=== PATIENT | male | born 1960 | race Caucasian/White ===

== ENCOUNTER 2021-09-23 14:01 | Inpatient (IN) | payer OTHER ==
[~2021-09-23] VITALS: Ht 177.8 cm; Wt 76.3 kg
[2021-09-23 16:20] VITALS: BP 173/93
[2021-09-23] MEDS ORDERED: PROMETHAZINE HCL 25 MG TABLET PO PRN (17:00)
[2021-09-23] MEDS ORDERED: ONDANSETRON HCL 4 MG TABLET PO PRN (17:00)
[2021-09-23] MEDS ORDERED: BISACODYL 10 MG RECTAL RECTAL SUPPOSITORY PR PRN (17:00)
[2021-09-23] MEDS ORDERED: HYDROmorphone HCL 2 MG TABLET PO PRN (17:00)
[2021-09-23] MEDS ORDERED: MELATONIN 5 MG TABLET PO PRN (17:00)
[2021-09-23] MEDS ORDERED: DEXTROSE 50%-WATER 25 GM/50 ML SYRINGE IVP PRN (17:00)
[2021-09-23] MEDS: INSULIN LISPRO 100 UNITS/ML SQ PRN ×2 (17:34→21:23)
[2021-09-23] MEDS: GENTAMICIN SULFATE 0.1% 15 GM OINTMENT TP SCH (19:45)
[2021-09-23 20:00] LABS: GLUCOMETER DEV NAME(LOC) 2WR.1C; GLUCOSE,POINT OF CARE 145 MG/DL (70-110)
[2021-09-23 20:52] VITALS: BP 157/89
[2021-09-23] MEDS: BUMETANIDE 1 MG TABLET PO SCH (21:00)
[2021-09-23] MEDS: ETHYL ALCOHOL 62% ANTISEPTIC NASAL INHALANT 0.6 ML AMPUL NASAL SCH (21:00)
[2021-09-23] MEDS: DOCUSATE SODIUM 100 MG CAPSULE PO SCH (21:00)
[2021-09-23] MEDS ORDERED: HEPARIN SODIUM,PORCINE 5,000 UNITS/ML VIAL SQ SCH ×2 (21:00)
[2021-09-23] MEDS ORDERED: SENNA 218 MG/5 ML LIQUID ORAL.SYG PO SCH (21:00)
[2021-09-23] MEDS: AmLODIPine BESYLATE 5 MG TABLET PO SCH (21:01)
[2021-09-23] MEDS: DOXYCYCLINE HYCLATE 100 MG TABLET PO SCH (21:01)
[2021-09-23] MEDS: MELATONIN 5 MG TABLET PO SCH (21:06)
[2021-09-24] VITALS: BP 148/76
[2021-09-24 04:59] LABS: GLUCOMETER DEV NAME(LOC) 2WR.1C; GLUCOSE,POINT OF CARE 147 MG/DL (70-110)
[2021-09-24 06:14] LABS: GLUCOMETER DEV NAME(LOC) 2WR.2B; GLUCOSE,POINT OF CARE 111 MG/DL (70-110)
[2021-09-24 07:33] LABS: BASOPHILS % (AUTO) 0.9 % (0.0-2.0); EOSINOPHILS % (AUTO) 5.9 % (1.0-6.0); HEMATOCRIT 31.1 % (41-53); HEMOGLOBIN 9.9 g/dL (13.5-17.5); LYMPHOCYTES # (AUTO) 1.1 K/uL (1.0-4.8); LYMPHOCYTES % (AUTO) 12.6 % (22.0-44.0); MEAN CORPUSCULAR HEMOGLOBIN 29.8 pg (26.0-34.0); MEAN CORPUSCULAR HGB CONC 31.9 G/dL (31.0-37.0); MEAN CORPUSCULAR VOLUME 93 fL (80-100); MONOCYTES # (AUTO) 0.7 K/uL (0.1-1.0); MONOCYTES % (AUTO) 7.9 % (2.0-9.0); NEUTROPHILS # (AUTO) 6.3 K/uL (1.8-7.7); NEUTROPHILS % (AUTO) 72.7 % (40.0-70.0); PLATELET COUNT (AUTO) 379 K/uL (150-450); RED BLOOD CELL COUNT(AUTO) 3.34 MIL/uL (4.50-5.90); RED CELL DISTRIBUTION WIDTH 18.1 % (11.5-14.5)
[2021-09-24 07:56] LABS: ALBUMIN 2.3 g/dL (3.4-5.0); BILIRUBIN,TOTAL 0.4 mg/dL (0.1-1.0); CALCIUM, TOTAL 10.1 mg/dL (8.8-10.5); CREATININE 10.51 mg/dL (0.60-1.30); PHOSPHORUS 8.7 mg/dL (2.5-4.9); POTASSIUM 5.1 mmol/L (3.5-5.1); TOTAL PROTEIN, SERUM 7.8 g/dL (6.4-8.2)
[2021-09-24] MEDS: ETHYL ALCOHOL 62% ANTISEPTIC NASAL INHALANT 0.6 ML AMPUL NASAL SCH ×2 (08:15→21:02)
[2021-09-24] MEDS: ASPIRIN 81 MG CHEWABLE TABLET PO SCH (08:15)
[2021-09-24] MEDS: POLYETHYLENE GLYCOL 3350 17 GM PACKET PO SCH (08:16)
[2021-09-24] MEDS: DOCUSATE SODIUM 100 MG CAPSULE PO SCH ×2 (08:16→20:53)
[2021-09-24] MEDS: VITAMIN B COMP/VIT C/FOLIC ACID CAPSULE PO SCH (08:16)
[2021-09-24] MEDS: LOSARTAN POTASSIUM 25 MG TABLET PO SCH (08:17)
[2021-09-24] MEDS: ATORVASTATIN CALCIUM 10 MG TABLET PO SCH (08:17)
[2021-09-24] MEDS: HEPARIN SODIUM,PORCINE 5,000 UNITS/ML VIAL SQ SCH ×2 (08:17→20:54)
[2021-09-24] MEDS: DOXYCYCLINE HYCLATE 100 MG TABLET PO SCH ×2 (08:18→20:55)
[2021-09-24] MEDS: ASCORBIC ACID 500 MG TABLET PO SCH (08:18)
[2021-09-24] MEDS: SitaGLIPtin PHOSPHATE 25 MG TABLET PO SCH (08:19)
[2021-09-24] MEDS: SPIRONOLACTONE 25 MG TABLET PO SCH (08:20)
[2021-09-24] MEDS: GENTAMICIN SULFATE 0.1% 15 GM OINTMENT TP SCH ×2 (08:21→17:34)
[2021-09-24] MEDS: BUMETANIDE 1 MG TABLET PO SCH ×2 (08:25→20:53)
[2021-09-24] MEDS: LACTOBAC ACID/BULG/BIFID/THERM TABLET PO SCH ×2 (08:25→20:54)
[2021-09-24] MEDS: EPOETIN ALFA 10,000 UNITS/ML VIAL SQ SCH (08:26)
[2021-09-24] MEDS: GABAPENTIN 100 MG CAPSULE PO SCH ×2 (08:26→20:53)
[2021-09-24 08:30] VITALS: BP 131/84
[2021-09-24] MEDS ORDERED: CIPROFLOXACIN HCL 500 MG TABLET PO SCH (09:00)
[2021-09-24] MEDS ORDERED: VITAMIN B COMPLEX WITH C TABLET PO SCH (09:00)
[2021-09-24] MEDS: OMEPRAZOLE 20 MG CAPSULE PO SCH (12:46)
[2021-09-24] MEDS: SEVELAMER CARBONATE 800 MG TABLET PO SCH ×2 (12:47→17:44)
[2021-09-24 12:49] LABS: GLUCOMETER DEV NAME(LOC) 2WR.1C; GLUCOSE,POINT OF CARE 81 MG/DL (70-110)
[2021-09-24 16:00] VITALS: BP 155/78
[2021-09-24 18:04] LABS: GLUCOMETER DEV NAME(LOC) 2WR.2B; GLUCOSE,POINT OF CARE 105 MG/DL (70-110)
[2021-09-24 20:50] VITALS: BP 138/77
[2021-09-24] MEDS: SENNA 187 MG TABLET PO SCH (20:53)
[2021-09-24] MEDS: MELATONIN 5 MG TABLET PO SCH (20:54)
[2021-09-24] MEDS: AmLODIPine BESYLATE 5 MG TABLET PO SCH (21:02)
[2021-09-24 21:45] LABS: GLUCOMETER DEV NAME(LOC) 2WR.2B; GLUCOSE,POINT OF CARE 136 MG/DL (70-110)
[2021-09-25 01:00] VITALS: BP 146/82
[2021-09-25 07:08] LABS: CALCIUM, TOTAL 9.7 mg/dL (8.8-10.5); CREATININE 10.5 mg/dL (0.60-1.30); PHOSPHORUS 8.6 mg/dL (2.5-4.9); POTASSIUM 5.3 mmol/L (3.5-5.1)
[2021-09-25 07:30] VITALS: BP 152/82
[2021-09-25] MEDS: SEVELAMER CARBONATE 800 MG TABLET PO SCH ×3 (08:09→17:49)
[2021-09-25] MEDS: ETHYL ALCOHOL 62% ANTISEPTIC NASAL INHALANT 0.6 ML AMPUL NASAL SCH ×2 (08:27→21:00)
[2021-09-25] MEDS: POLYETHYLENE GLYCOL 3350 17 GM PACKET PO SCH (08:27)
[2021-09-25] MEDS: HEPARIN SODIUM,PORCINE 5,000 UNITS/ML VIAL SQ SCH ×2 (08:28→21:01)
[2021-09-25] MEDS: ASPIRIN 81 MG CHEWABLE TABLET PO SCH (08:28)
[2021-09-25] MEDS: DOCUSATE SODIUM 100 MG CAPSULE PO SCH ×2 (08:28→21:01)
[2021-09-25] MEDS: LACTOBAC ACID/BULG/BIFID/THERM TABLET PO SCH ×2 (08:28→21:00)
[2021-09-25] MEDS: VITAMIN B COMP/VIT C/FOLIC ACID CAPSULE PO SCH (08:29)
[2021-09-25] MEDS: OMEPRAZOLE 20 MG CAPSULE PO SCH (08:29)
[2021-09-25] MEDS: ASCORBIC ACID 500 MG TABLET PO SCH (08:29)
[2021-09-25] MEDS: ATORVASTATIN CALCIUM 10 MG TABLET PO SCH (08:29)
[2021-09-25] MEDS: BUMETANIDE 1 MG TABLET PO SCH ×2 (08:29→21:00)
[2021-09-25] MEDS: GABAPENTIN 100 MG CAPSULE PO SCH ×2 (08:29→21:00)
[2021-09-25] MEDS: SitaGLIPtin PHOSPHATE 25 MG TABLET PO SCH (08:29)
[2021-09-25] MEDS: DOXYCYCLINE HYCLATE 100 MG TABLET PO SCH ×2 (08:30→21:00)
[2021-09-25] MEDS: SPIRONOLACTONE 25 MG TABLET PO SCH (08:30)
[2021-09-25] MEDS: LOSARTAN POTASSIUM 25 MG TABLET PO SCH (08:30)
[2021-09-25] MEDS ORDERED: CALCITRIOL 0.25 MCG CAPSULE PO SCH (09:00)
[2021-09-25] MEDS ORDERED: SODIUM ZIRCONIUM CYCLOSILICATE 5 GM POWDER PACKET PO ONE (11:45)
[2021-09-25 15:22] LABS: GLUCOMETER DEV NAME(LOC) 2WR.2B; GLUCOSE,POINT OF CARE 86 MG/DL (70-110)
[2021-09-25 17:00] VITALS: BP 179/97
[2021-09-25 17:18] LABS: GLUCOMETER DEV NAME(LOC) 2WR.1C; GLUCOSE,POINT OF CARE 94 MG/DL (70-110)
[2021-09-25] MEDS: HydrALAZINE HCL 25 MG TABLET PO PRN (17:20)
[2021-09-25 18:51] LABS: GLUCOMETER DEV NAME(LOC) 2WR.1C; GLUCOSE,POINT OF CARE 109 MG/DL (70-110)
[2021-09-25 20:00] VITALS: BP 162/89
[2021-09-25] MEDS: AmLODIPine BESYLATE 5 MG TABLET PO SCH (21:00)
[2021-09-25] MEDS: SENNA 187 MG TABLET PO SCH (21:00)
[2021-09-25] MEDS: MELATONIN 5 MG TABLET PO SCH ×2 (21:00→21:01)
[2021-09-25 23:42] LABS: GLUCOMETER DEV NAME(LOC) 2WR.1C; GLUCOSE,POINT OF CARE 124 MG/DL (70-110)
[2021-09-26 04:58] VITALS: BP 160/81
[2021-09-26 06:29] LABS: GLUCOMETER DEV NAME(LOC) 2WR.2B; GLUCOSE,POINT OF CARE 120 MG/DL (70-110)
[2021-09-26 07:12] LABS: CALCIUM, TOTAL 9.5 mg/dL (8.8-10.5); CREATININE 10.64 mg/dL (0.60-1.30)
[2021-09-26] MEDS: SEVELAMER CARBONATE 800 MG TABLET PO SCH ×3 (07:57→17:43)
[2021-09-26] MEDS: ETHYL ALCOHOL 62% ANTISEPTIC NASAL INHALANT 0.6 ML AMPUL NASAL SCH ×2 (07:57→20:36)
[2021-09-26] MEDS: HEPARIN SODIUM,PORCINE 5,000 UNITS/ML VIAL SQ SCH ×2 (07:58→20:36)
[2021-09-26] MEDS: GABAPENTIN 100 MG CAPSULE PO SCH ×2 (07:58→20:36)
[2021-09-26] MEDS: ASCORBIC ACID 500 MG TABLET PO SCH (07:58)
[2021-09-26] MEDS: DOCUSATE SODIUM 100 MG CAPSULE PO SCH ×2 (07:58→20:36)
[2021-09-26] MEDS: LACTOBAC ACID/BULG/BIFID/THERM TABLET PO SCH ×2 (07:58→20:36)
[2021-09-26] MEDS: VITAMIN B COMP/VIT C/FOLIC ACID CAPSULE PO SCH (07:58)
[2021-09-26] MEDS: DOXYCYCLINE HYCLATE 100 MG TABLET PO SCH ×2 (07:59→20:39)
[2021-09-26] MEDS: LOSARTAN POTASSIUM 25 MG TABLET PO SCH (07:59)
[2021-09-26] MEDS: OMEPRAZOLE 20 MG CAPSULE PO SCH (07:59)
[2021-09-26] MEDS: ATORVASTATIN CALCIUM 10 MG TABLET PO SCH (07:59)
[2021-09-26] MEDS: SPIRONOLACTONE 25 MG TABLET PO SCH (07:59)
[2021-09-26] MEDS: SitaGLIPtin PHOSPHATE 25 MG TABLET PO SCH (07:59)
[2021-09-26 08:01] VITALS: BP 156/84
[2021-09-26] MEDS: POLYETHYLENE GLYCOL 3350 17 GM PACKET PO SCH (08:04)
[2021-09-26] MEDS: BUMETANIDE 1 MG TABLET PO SCH ×2 (08:04→20:36)
[2021-09-26] MEDS: GENTAMICIN SULFATE 0.1% 15 GM OINTMENT TP SCH (08:04)
[2021-09-26] MEDS: ASPIRIN 81 MG CHEWABLE TABLET PO SCH (08:04)
[2021-09-26 12:35] LABS: GLUCOMETER DEV NAME(LOC) 2WR.2B; GLUCOSE,POINT OF CARE 89 MG/DL (70-110)
[2021-09-26 16:00] VITALS: BP 164/88
[2021-09-26 18:08] LABS: GLUCOMETER DEV NAME(LOC) 2WR.2B; GLUCOSE,POINT OF CARE 79 MG/DL (70-110)
[2021-09-26 20:34] VITALS: BP 156/84
[2021-09-26] MEDS: AmLODIPine BESYLATE 5 MG TABLET PO SCH (20:36)
[2021-09-26] MEDS: SENNA 187 MG TABLET PO SCH (20:39)
[2021-09-26] MEDS: MELATONIN 5 MG TABLET PO SCH (21:00)
[2021-09-26 21:03] LABS: GLUCOMETER DEV NAME(LOC) 2WR.2B; GLUCOSE,POINT OF CARE 93 MG/DL (70-110)
[2021-09-27 05:16] VITALS: BP 143/77
[2021-09-27 06:16] LABS: GLUCOMETER DEV NAME(LOC) 2WR.2B; GLUCOSE,POINT OF CARE 104 MG/DL (70-110)
[2021-09-27 08:30] LABS: CALCIUM, TOTAL 9.1 mg/dL (8.8-10.5); CREATININE 11.09 mg/dL (0.60-1.30)
[2021-09-27 08:44] LABS: PHOSPHORUS 9.3 mg/dL (2.5-4.9)
[2021-09-27] MEDS: ETHYL ALCOHOL 62% ANTISEPTIC NASAL INHALANT 0.6 ML AMPUL NASAL SCH ×2 (09:00→20:18)
[2021-09-27] MEDS: ASCORBIC ACID 500 MG TABLET PO SCH (09:19)
[2021-09-27] MEDS: GABAPENTIN 100 MG CAPSULE PO SCH ×2 (09:19→20:17)
[2021-09-27] MEDS: BUMETANIDE 1 MG TABLET PO SCH ×2 (09:19→20:16)
[2021-09-27] MEDS: DOXYCYCLINE HYCLATE 100 MG TABLET PO SCH ×2 (09:20→20:17)
[2021-09-27] MEDS: ASPIRIN 81 MG CHEWABLE TABLET PO SCH (09:20)
[2021-09-27] MEDS: SitaGLIPtin PHOSPHATE 25 MG TABLET PO SCH (09:20)
[2021-09-27] MEDS: OMEPRAZOLE 20 MG CAPSULE PO SCH (09:20)
[2021-09-27] MEDS: LOSARTAN POTASSIUM 25 MG TABLET PO SCH (09:20)
[2021-09-27] MEDS: POLYETHYLENE GLYCOL 3350 17 GM PACKET PO SCH (09:20)
[2021-09-27] MEDS: SEVELAMER CARBONATE 800 MG TABLET PO SCH ×3 (09:20→17:37)
[2021-09-27] MEDS: VITAMIN B COMP/VIT C/FOLIC ACID CAPSULE PO SCH (09:20)
[2021-09-27] MEDS: DOCUSATE SODIUM 100 MG CAPSULE PO SCH ×2 (09:20→20:16)
[2021-09-27] MEDS: ATORVASTATIN CALCIUM 10 MG TABLET PO SCH (09:20)
[2021-09-27] MEDS: LACTOBAC ACID/BULG/BIFID/THERM TABLET PO SCH ×2 (09:20→20:16)
[2021-09-27] MEDS: GENTAMICIN SULFATE 0.1% 15 GM OINTMENT TP SCH (09:21)
[2021-09-27] MEDS: HEPARIN SODIUM,PORCINE 5,000 UNITS/ML VIAL SQ SCH ×2 (09:21→20:17)
[2021-09-27 10:05] VITALS: BP 135/71
[2021-09-27 13:12] LABS: GLUCOMETER DEV NAME(LOC) 2WR.2B; GLUCOSE,POINT OF CARE 118 MG/DL (70-110)
[2021-09-27] MEDS ORDERED: MELATONIN 5 MG TABLET PO PRN (14:15)
[2021-09-27 14:58] VITALS: BP 181/97
[2021-09-27] MEDS: HydrALAZINE HCL 25 MG TABLET PO PRN (15:05)
[2021-09-27 17:12] VITALS: BP 162/85
[2021-09-27 18:42] LABS: GLUCOMETER DEV NAME(LOC) 2WR.2B; GLUCOSE,POINT OF CARE 112 MG/DL (70-110)
[2021-09-27 20:15] VITALS: BP 155/82
[2021-09-27] MEDS: SENNA 187 MG TABLET PO SCH (20:16)
[2021-09-27] MEDS: AmLODIPine BESYLATE 5 MG TABLET PO SCH (20:18)
[2021-09-27 21:15] LABS: GLUCOMETER DEV NAME(LOC) 2WR.2B; GLUCOSE,POINT OF CARE 122 MG/DL (70-110)
[2021-09-28 02:41] VITALS: BP 143/74
[2021-09-28 06:59] LABS: CALCIUM, TOTAL 8.6 mg/dL (8.8-10.5); CREATININE 11.41 mg/dL (0.60-1.30); POTASSIUM 5.1 mmol/L (3.5-5.1)
[2021-09-28] MEDS: SEVELAMER CARBONATE 800 MG TABLET PO SCH ×3 (07:59→17:45)
[2021-09-28 08:01] VITALS: BP 146/79
[2021-09-28] MEDS: EPOETIN ALFA 10,000 UNITS/ML VIAL SQ SCH (08:10)
[2021-09-28] MEDS: ETHYL ALCOHOL 62% ANTISEPTIC NASAL INHALANT 0.6 ML AMPUL NASAL SCH ×2 (08:10→20:05)
[2021-09-28] MEDS: POLYETHYLENE GLYCOL 3350 17 GM PACKET PO SCH (08:19)
[2021-09-28] MEDS: OMEPRAZOLE 20 MG CAPSULE PO SCH (08:19)
[2021-09-28] MEDS: ASPIRIN 81 MG CHEWABLE TABLET PO SCH (08:19)
[2021-09-28] MEDS: HEPARIN SODIUM,PORCINE 5,000 UNITS/ML VIAL SQ SCH ×2 (08:22→20:04)
[2021-09-28] MEDS: DOCUSATE SODIUM 100 MG CAPSULE PO SCH ×2 (08:22→20:05)
[2021-09-28] MEDS: DOXYCYCLINE HYCLATE 100 MG TABLET PO SCH ×2 (08:22→20:04)
[2021-09-28] MEDS: GABAPENTIN 100 MG CAPSULE PO SCH ×2 (08:23→20:05)
[2021-09-28] MEDS: LOSARTAN POTASSIUM 25 MG TABLET PO SCH (08:23)
[2021-09-28] MEDS: BUMETANIDE 1 MG TABLET PO SCH ×2 (08:23→20:05)
[2021-09-28] MEDS: LACTOBAC ACID/BULG/BIFID/THERM TABLET PO SCH ×2 (08:23→20:05)
[2021-09-28] MEDS: SitaGLIPtin PHOSPHATE 25 MG TABLET PO SCH (08:23)
[2021-09-28] MEDS: ASCORBIC ACID 500 MG TABLET PO SCH (08:24)
[2021-09-28] MEDS: VITAMIN B COMP/VIT C/FOLIC ACID CAPSULE PO SCH (08:24)
[2021-09-28] MEDS: ATORVASTATIN CALCIUM 10 MG TABLET PO SCH (08:24)
[2021-09-28] MEDS: INSULIN LISPRO 100 UNITS/ML SQ PRN (08:27)
[2021-09-28 12:38] LABS: GLUCOMETER DEV NAME(LOC) 2WR.2B; GLUCOSE,POINT OF CARE 73 MG/DL (70-110)
[2021-09-28 12:39] LABS: GLUCOMETER DEV NAME(LOC) 2WR.2B; GLUCOSE,POINT OF CARE 105 MG/DL (70-110)
[2021-09-28 14:19] LABS: GLUCOMETER DEV NAME(LOC) 2WR.1C; GLUCOSE,POINT OF CARE 150 MG/DL (70-110)
[2021-09-28 16:00] VITALS: BP 129/73
[2021-09-28 17:43] LABS: GLUCOMETER DEV NAME(LOC) 2WR.2B; GLUCOSE,POINT OF CARE 108 MG/DL (70-110)
[2021-09-28] MEDS: GENTAMICIN SULFATE 0.1% 15 GM OINTMENT TP SCH (19:27)
[2021-09-28 20:02] VITALS: BP 138/62
[2021-09-28] MEDS: SENNA 187 MG TABLET PO SCH (20:05)
[2021-09-28] MEDS: AmLODIPine BESYLATE 10 MG TABLET PO SCH (20:05)
[2021-09-28 21:31] LABS: GLUCOMETER DEV NAME(LOC) 2WR.2B; GLUCOSE,POINT OF CARE 115 MG/DL (70-110)
[2021-09-29 02:30] VITALS: BP 141/69
[2021-09-29] MEDS ORDERED: SEVE800T17 PO (05:51)
[2021-09-29] MEDS ORDERED: SENN8.6T90 PO (05:51)
[2021-09-29] MEDS ORDERED: AMLO-258 PO (05:51)
[2021-09-29] MEDS ORDERED: ACID1TAB13 PO (05:51)
[2021-09-29] MEDS ORDERED: DOCU-270 PO (05:51)
[2021-09-29] MEDS ORDERED: INSU100V SQ (05:51)
[2021-09-29] MEDS ORDERED: BUME1TAB34 PO (05:51)
[2021-09-29] MEDS ORDERED: OMEP20 PO (05:51)
[2021-09-29] MEDS ORDERED: B CO1CAP6 PO (05:51)
[2021-09-29] MEDS ORDERED: SITA25 PO (05:51)
[2021-09-29] MEDS ORDERED: LOSA25TA21 PO (05:51)
[2021-09-29] MEDS ORDERED: ASPI-1450 PO (05:51)
[2021-09-29] MEDS ORDERED: ASCO500 PO (05:51)
[2021-09-29] MEDS ORDERED: POLY17PO47 PO (05:51)
[2021-09-29] MEDS ORDERED: GABA-1216 PO (05:51)
[2021-09-29] MEDS ORDERED: ATOR10TA84 PO (05:51)
[2021-09-29 06:18] LABS: GLUCOMETER DEV NAME(LOC) 2WR.2B; GLUCOSE,POINT OF CARE 126 MG/DL (70-110)
[2021-09-29 06:49] LABS: BASOPHILS % (AUTO) 1.2 % (0.0-2.0); EOSINOPHILS % (AUTO) 5.1 % (1.0-6.0); HEMATOCRIT 31.4 % (41-53); LYMPHOCYTES # (AUTO) 1.1 K/uL (1.0-4.8); LYMPHOCYTES % (AUTO) 12.8 % (22.0-44.0); MEAN CORPUSCULAR HGB CONC 31.7 G/dL (31.0-37.0); MEAN CORPUSCULAR VOLUME 95 fL (80-100); MONOCYTES # (AUTO) 0.9 K/uL (0.1-1.0); MONOCYTES % (AUTO) 10.4 % (2.0-9.0); NEUTROPHILS # (AUTO) 6.2 K/uL (1.8-7.7); NEUTROPHILS % (AUTO) 70.5 % (40.0-70.0); PLATELET COUNT (AUTO) 298 K/uL (150-450); RED BLOOD CELL COUNT(AUTO) 3.32 MIL/uL (4.50-5.90); RED CELL DISTRIBUTION WIDTH 18.4 % (11.5-14.5)
[2021-09-29 07:01] LABS: CALCIUM, TOTAL 8.5 mg/dL (8.8-10.5); CREATININE 11.07 mg/dL (0.60-1.30)
[2021-09-29 08:01] VITALS: BP 139/76
[2021-09-29] MEDS: SEVELAMER CARBONATE 800 MG TABLET PO SCH ×3 (08:04→17:25)
[2021-09-29] MEDS: POLYETHYLENE GLYCOL 3350 17 GM PACKET PO SCH (08:17)
[2021-09-29] MEDS: LACTOBAC ACID/BULG/BIFID/THERM TABLET PO SCH ×2 (08:18→20:25)
[2021-09-29] MEDS: BUMETANIDE 1 MG TABLET PO SCH ×2 (08:18→20:25)
[2021-09-29] MEDS: VITAMIN B COMP/VIT C/FOLIC ACID CAPSULE PO SCH (08:18)
[2021-09-29] MEDS: OMEPRAZOLE 20 MG CAPSULE PO SCH (08:18)
[2021-09-29] MEDS: DOCUSATE SODIUM 100 MG CAPSULE PO SCH ×2 (08:18→20:25)
[2021-09-29] MEDS: SitaGLIPtin PHOSPHATE 25 MG TABLET PO SCH (08:18)
[2021-09-29] MEDS: ASPIRIN 81 MG CHEWABLE TABLET PO SCH (08:18)
[2021-09-29] MEDS: HEPARIN SODIUM,PORCINE 5,000 UNITS/ML VIAL SQ SCH ×2 (08:19→20:26)
[2021-09-29] MEDS: LOSARTAN POTASSIUM 25 MG TABLET PO SCH (08:19)
[2021-09-29] MEDS: ASCORBIC ACID 500 MG TABLET PO SCH (08:19)
[2021-09-29] MEDS: ATORVASTATIN CALCIUM 10 MG TABLET PO SCH (08:19)
[2021-09-29] MEDS: GABAPENTIN 100 MG CAPSULE PO SCH ×2 (08:19→20:25)
[2021-09-29] MEDS: ETHYL ALCOHOL 62% ANTISEPTIC NASAL INHALANT 0.6 ML AMPUL NASAL SCH ×2 (08:20→20:26)
[2021-09-29 12:06] LABS: GLUCOMETER DEV NAME(LOC) 2WR.2B; GLUCOSE,POINT OF CARE 135 MG/DL (70-110)
[2021-09-29 16:02] VITALS: BP 134/69
[2021-09-29 17:22] LABS: GLUCOMETER DEV NAME(LOC) 2WR.2B; GLUCOSE,POINT OF CARE 121 MG/DL (70-110)
[2021-09-29] MEDS ORDERED: GENTAMICIN SULFATE 0.1% 15 GM OINTMENT TP SCH (18:00)
[2021-09-29] MEDS: GENTAMICIN SULFATE 0.1% 15 GM OINTMENT TP SCH (19:54)
[2021-09-29 20:20] VITALS: BP 137/73
[2021-09-29] MEDS: AmLODIPine BESYLATE 10 MG TABLET PO SCH (20:25)
[2021-09-29] MEDS: SENNA 187 MG TABLET PO SCH (20:25)
[2021-09-29 20:54] LABS: GLUCOMETER DEV NAME(LOC) 2WR.2B; GLUCOSE,POINT OF CARE 95 MG/DL (70-110)
[2021-09-30 02:15] VITALS: BP 143/78
[2021-09-30 05:54] LABS: GLUCOMETER DEV NAME(LOC) 2WR.2B; GLUCOSE,POINT OF CARE 132 MG/DL (70-110)
[2021-09-30] MEDS: SEVELAMER CARBONATE 800 MG TABLET PO SCH ×3 (07:42→17:30)
[2021-09-30 08:02] VITALS: BP 147/85
[2021-09-30] MEDS: SitaGLIPtin PHOSPHATE 25 MG TABLET PO SCH (08:26)
[2021-09-30] MEDS: HEPARIN SODIUM,PORCINE 5,000 UNITS/ML VIAL SQ SCH ×2 (08:26→20:11)
[2021-09-30] MEDS: ETHYL ALCOHOL 62% ANTISEPTIC NASAL INHALANT 0.6 ML AMPUL NASAL SCH ×2 (08:26→20:09)
[2021-09-30] MEDS: OMEPRAZOLE 20 MG CAPSULE PO SCH (08:27)
[2021-09-30] MEDS: GABAPENTIN 100 MG CAPSULE PO SCH ×2 (08:27→20:11)
[2021-09-30] MEDS: LOSARTAN POTASSIUM 25 MG TABLET PO SCH (08:27)
[2021-09-30] MEDS: VITAMIN B COMP/VIT C/FOLIC ACID CAPSULE PO SCH (08:27)
[2021-09-30] MEDS: DOCUSATE SODIUM 100 MG CAPSULE PO SCH ×2 (08:27→20:10)
[2021-09-30] MEDS: LACTOBAC ACID/BULG/BIFID/THERM TABLET PO SCH ×2 (08:27→20:10)
[2021-09-30] MEDS: ASCORBIC ACID 500 MG TABLET PO SCH (08:27)
[2021-09-30] MEDS: ATORVASTATIN CALCIUM 10 MG TABLET PO SCH (08:27)
[2021-09-30] MEDS: BUMETANIDE 1 MG TABLET PO SCH ×2 (08:27→20:10)
[2021-09-30] MEDS: ASPIRIN 81 MG CHEWABLE TABLET PO SCH (08:27)
[2021-09-30] MEDS: POLYETHYLENE GLYCOL 3350 17 GM PACKET PO SCH (08:28)
[2021-09-30 09:43] LABS: CALCIUM, TOTAL 8.3 mg/dL (8.8-10.5); CREATININE 11.07 mg/dL (0.60-1.30); PHOSPHORUS 8.4 mg/dL (2.5-4.9); POTASSIUM 5.8 mmol/L (3.5-5.1)
[2021-09-30] MEDS ORDERED: SODIUM ZIRCONIUM CYCLOSILICATE 5 GM POWDER PACKET PO ONE (12:30)
[2021-09-30 12:42] LABS: GLUCOMETER DEV NAME(LOC) 2WR.2B; GLUCOSE,POINT OF CARE 92 MG/DL (70-110)
[2021-09-30 17:26] VITALS: BP 146/84
[2021-09-30] MEDS: GENTAMICIN SULFATE 0.1% 15 GM OINTMENT TP SCH (18:14)
[2021-09-30 19:01] LABS: GLUCOMETER DEV NAME(LOC) 2WR.1C; GLUCOSE,POINT OF CARE 95 MG/DL (70-110)
[2021-09-30 20:01] VITALS: BP_SYST 108; BP_SYST 113; BP_DIAS 55; BP_DIAS 61
[2021-09-30] MEDS: SENNA 187 MG TABLET PO SCH (20:10)
[2021-09-30] MEDS: AmLODIPine BESYLATE 10 MG TABLET PO SCH (20:11)
[2021-09-30 21:15] LABS: GLUCOMETER DEV NAME(LOC) 2WR.1C; GLUCOSE,POINT OF CARE 107 MG/DL (70-110)
[2021-10-01 02:45] VITALS: BP 154/79
[2021-10-01 06:37] LABS: GLUCOMETER DEV NAME(LOC) 2WR.2B; GLUCOSE,POINT OF CARE 133 MG/DL (70-110)
[2021-10-01] MEDS: SEVELAMER CARBONATE 800 MG TABLET PO SCH ×3 (07:47→16:55)
[2021-10-01 08:32] LABS: CALCIUM, TOTAL 8.3 mg/dL (8.8-10.5); CREATININE 11.1 mg/dL (0.60-1.30); POTASSIUM 4.9 mmol/L (3.5-5.1)
[2021-10-01] MEDS: ETHYL ALCOHOL 62% ANTISEPTIC NASAL INHALANT 0.6 ML AMPUL NASAL SCH ×2 (08:40→20:01)
[2021-10-01] MEDS: GABAPENTIN 100 MG CAPSULE PO SCH ×2 (08:42→20:02)
[2021-10-01] MEDS: DOCUSATE SODIUM 250 MG CAPSULE PO SCH ×2 (08:42→20:01)
[2021-10-01] MEDS: ASCORBIC ACID 500 MG TABLET PO SCH (08:42)
[2021-10-01] MEDS: ASPIRIN 81 MG CHEWABLE TABLET PO SCH (08:42)
[2021-10-01] MEDS: VITAMIN B COMP/VIT C/FOLIC ACID CAPSULE PO SCH (08:43)
[2021-10-01] MEDS: BUMETANIDE 1 MG TABLET PO SCH ×2 (08:43→20:02)
[2021-10-01] MEDS: LACTOBAC ACID/BULG/BIFID/THERM TABLET PO SCH ×2 (08:43→20:01)
[2021-10-01] MEDS: POLYETHYLENE GLYCOL 3350 17 GM PACKET PO SCH (08:43)
[2021-10-01] MEDS: HEPARIN SODIUM,PORCINE 5,000 UNITS/ML VIAL SQ SCH ×2 (08:44→20:02)
[2021-10-01] MEDS: ATORVASTATIN CALCIUM 10 MG TABLET PO SCH (08:44)
[2021-10-01] MEDS: EPOETIN ALFA 10,000 UNITS/ML VIAL SQ SCH (08:44)
[2021-10-01] MEDS: SitaGLIPtin PHOSPHATE 25 MG TABLET PO SCH (08:44)
[2021-10-01] MEDS: OMEPRAZOLE 20 MG CAPSULE PO SCH (08:45)
[2021-10-01 09:10] VITALS: BP 125/67
[2021-10-01 12:51] LABS: GLUCOMETER DEV NAME(LOC) 2WR.2B; GLUCOSE,POINT OF CARE 82 MG/DL (70-110)
[2021-10-01 16:00] VITALS: BP 130/70
[2021-10-01 17:37] LABS: GLUCOMETER DEV NAME(LOC) 2WR.1C; GLUCOSE,POINT OF CARE 104 MG/DL (70-110)
[2021-10-01] MEDS: GENTAMICIN SULFATE 0.1% 15 GM OINTMENT TP SCH (18:00)
[2021-10-01 20:00] VITALS: BP 135/71
[2021-10-01] MEDS: SENNA 187 MG TABLET PO SCH (20:01)
[2021-10-01] MEDS: AmLODIPine BESYLATE 5 MG TABLET PO SCH (20:02)
[2021-10-01 22:46] LABS: GLUCOMETER DEV NAME(LOC) 2WR.1C; GLUCOSE,POINT OF CARE 120 MG/DL (70-110)
[2021-10-02 01:41] VITALS: BP 137/74
[2021-10-02] MEDS: SEVELAMER CARBONATE 800 MG TABLET PO SCH ×3 (07:46→17:40)
[2021-10-02] MEDS: ATORVASTATIN CALCIUM 10 MG TABLET PO SCH (07:47)
[2021-10-02] MEDS: POLYETHYLENE GLYCOL 3350 17 GM PACKET PO SCH (07:47)
[2021-10-02] MEDS: DOCUSATE SODIUM 250 MG CAPSULE PO SCH ×2 (07:48→20:49)
[2021-10-02] MEDS: SitaGLIPtin PHOSPHATE 25 MG TABLET PO SCH (07:48)
[2021-10-02] MEDS: OMEPRAZOLE 20 MG CAPSULE PO SCH (07:48)
[2021-10-02] MEDS: LACTOBAC ACID/BULG/BIFID/THERM TABLET PO SCH ×2 (07:48→20:49)
[2021-10-02] MEDS: GABAPENTIN 100 MG CAPSULE PO SCH ×2 (07:48→20:50)
[2021-10-02] MEDS: BUMETANIDE 1 MG TABLET PO SCH ×2 (07:48→20:49)
[2021-10-02] MEDS: HEPARIN SODIUM,PORCINE 5,000 UNITS/ML VIAL SQ SCH ×2 (07:49→20:49)
[2021-10-02] MEDS: ASPIRIN 81 MG CHEWABLE TABLET PO SCH (07:49)
[2021-10-02] MEDS: ASCORBIC ACID 500 MG TABLET PO SCH (07:49)
[2021-10-02] MEDS: ETHYL ALCOHOL 62% ANTISEPTIC NASAL INHALANT 0.6 ML AMPUL NASAL SCH ×2 (07:53→20:50)
[2021-10-02] MEDS: VITAMIN B COMP/VIT C/FOLIC ACID CAPSULE PO SCH (07:54)
[2021-10-02 09:11] LABS: CREATININE 11.7 mg/dL (0.60-1.30); MAGNESIUM 3.8 mg/dL (1.80-2.40); PHOSPHORUS 8.1 mg/dL (2.5-4.9); POTASSIUM 5.6 mmol/L (3.5-5.1)
[2021-10-02] MEDS ORDERED: SODIUM ZIRCONIUM CYCLOSILICATE 5 GM POWDER PACKET PO ONE (10:00)
[2021-10-02 10:19] VITALS: BP 136/81
[2021-10-02 14:41] LABS: GLUCOMETER DEV NAME(LOC) 2WR.2B; GLUCOSE,POINT OF CARE 95 MG/DL (70-110)
[2021-10-02 14:41] LABS: GLUCOMETER DEV NAME(LOC) 2WR.2B; GLUCOSE,POINT OF CARE 94 MG/DL (70-110)
[2021-10-02 17:19] VITALS: BP 145/86
[2021-10-02 17:50] LABS: GLUCOMETER DEV NAME(LOC) 2WR.2B; GLUCOSE,POINT OF CARE 101 MG/DL (70-110)
[2021-10-02 20:45] VITALS: BP 125/70
[2021-10-02] MEDS: AmLODIPine BESYLATE 5 MG TABLET PO SCH (20:50)
[2021-10-02] MEDS: GENTAMICIN SULFATE 0.1% 15 GM OINTMENT TP SCH (20:50)
[2021-10-02] MEDS: SENNA 187 MG TABLET PO SCH (20:50)
[2021-10-02 21:30] LABS: GLUCOMETER DEV NAME(LOC) 2WR.2B; GLUCOSE,POINT OF CARE 134 MG/DL (70-110)
[2021-10-02 22:38] LABS: GLUCOMETER DEV NAME(LOC) 2WR.1C; GLUCOSE,POINT OF CARE 132 MG/DL (70-110)
[2021-10-03] MEDS: ACETAMINOPHEN 325 MG TABLET PO PRN (02:51)
[2021-10-03 04:30] VITALS: BP 120/75
[2021-10-03 05:52] LABS: GLUCOMETER DEV NAME(LOC) 2WR.1C; GLUCOSE,POINT OF CARE 79 MG/DL (70-110)
[2021-10-03 07:24] LABS: CREATININE 11.69 mg/dL (0.60-1.30); MAGNESIUM 3.9 mg/dL (1.80-2.40); PHOSPHORUS 7.1 mg/dL (2.5-4.9); POTASSIUM 5.3 mmol/L (3.5-5.1)
[2021-10-03] MEDS: SEVELAMER CARBONATE 800 MG TABLET PO SCH ×3 (07:54→16:37)
[2021-10-03] MEDS: POLYETHYLENE GLYCOL 3350 17 GM PACKET PO SCH (07:56)
[2021-10-03 07:57] LABS: EOSINOPHILS % (AUTO) 3.7 % (1.0-6.0); HEMATOCRIT 32.5 % (41-53); HEMOGLOBIN 10.5 g/dL (13.5-17.5); LYMPHOCYTES # (AUTO) 1.2 K/uL (1.0-4.8); LYMPHOCYTES % (AUTO) 13.1 % (22.0-44.0); MEAN CORPUSCULAR HEMOGLOBIN 30.7 pg (26.0-34.0); MEAN CORPUSCULAR HGB CONC 32.2 G/dL (31.0-37.0); MEAN CORPUSCULAR VOLUME 95 fL (80-100); MONOCYTES # (AUTO) 0.8 K/uL (0.1-1.0); MONOCYTES % (AUTO) 9.3 % (2.0-9.0); NEUTROPHILS # (AUTO) 6.4 K/uL (1.8-7.7); NEUTROPHILS % (AUTO) 72.9 % (40.0-70.0); PLATELET COUNT (AUTO) 269 K/uL (150-450); RED BLOOD CELL COUNT(AUTO) 3.41 MIL/uL (4.50-5.90); RED CELL DISTRIBUTION WIDTH 18.1 % (11.5-14.5)
[2021-10-03] MEDS: OMEPRAZOLE 20 MG CAPSULE PO SCH (07:57)
[2021-10-03] MEDS: GABAPENTIN 100 MG CAPSULE PO SCH ×2 (07:57→21:34)
[2021-10-03] MEDS: SitaGLIPtin PHOSPHATE 25 MG TABLET PO SCH (07:57)
[2021-10-03] MEDS: ETHYL ALCOHOL 62% ANTISEPTIC NASAL INHALANT 0.6 ML AMPUL NASAL SCH ×2 (07:57→21:34)
[2021-10-03] MEDS: ASPIRIN 81 MG CHEWABLE TABLET PO SCH (07:57)
[2021-10-03] MEDS: ATORVASTATIN CALCIUM 10 MG TABLET PO SCH (07:57)
[2021-10-03] MEDS: DOCUSATE SODIUM 250 MG CAPSULE PO SCH ×2 (07:57→21:34)
[2021-10-03] MEDS: BUMETANIDE 1 MG TABLET PO SCH (07:58)
[2021-10-03] MEDS: VITAMIN B COMP/VIT C/FOLIC ACID CAPSULE PO SCH (07:58)
[2021-10-03] MEDS: HEPARIN SODIUM,PORCINE 5,000 UNITS/ML VIAL SQ SCH ×2 (07:58→21:35)
[2021-10-03 08:01] VITALS: BP 123/73
[2021-10-03 12:00] LABS: GLUCOMETER DEV NAME(LOC) 2WR.1C; GLUCOSE,POINT OF CARE 140 MG/DL (70-110)
[2021-10-03] MEDS ORDERED: SODIUM ZIRCONIUM CYCLOSILICATE 5 GM POWDER PACKET PO ONE (13:45)
[2021-10-03 15:30] VITALS: BP 130/76
[2021-10-03 17:15] LABS: GLUCOMETER DEV NAME(LOC) 2WR.1C; GLUCOSE,POINT OF CARE 97 MG/DL (70-110)
[2021-10-03] MEDS: GENTAMICIN SULFATE 0.1% 15 GM OINTMENT TP SCH ×2 (18:00→23:00)
[2021-10-03 20:45] VITALS: BP 139/79
[2021-10-03] MEDS: AmLODIPine BESYLATE 5 MG TABLET PO SCH (21:34)
[2021-10-03] MEDS: SENNA 187 MG TABLET PO SCH (21:34)
[2021-10-03 22:28] LABS: GLUCOMETER DEV NAME(LOC) 2WR.1C; GLUCOSE,POINT OF CARE 117 MG/DL (70-110)
[2021-10-04 00:07] VITALS: BP 146/80
[2021-10-04 06:28] LABS: GLUCOMETER DEV NAME(LOC) 2WR.2B; GLUCOSE,POINT OF CARE 137 MG/DL (70-110)
[2021-10-04] MEDS: SEVELAMER CARBONATE 800 MG TABLET PO SCH ×3 (07:43→16:12)
[2021-10-04 08:01] VITALS: BP 122/70
[2021-10-04] MEDS: ETHYL ALCOHOL 62% ANTISEPTIC NASAL INHALANT 0.6 ML AMPUL NASAL SCH ×2 (08:15→21:00)
[2021-10-04] MEDS: POLYETHYLENE GLYCOL 3350 17 GM PACKET PO SCH (08:15)
[2021-10-04] MEDS: OMEPRAZOLE 20 MG CAPSULE PO SCH (08:16)
[2021-10-04] MEDS: ASPIRIN 81 MG CHEWABLE TABLET PO SCH (08:16)
[2021-10-04] MEDS: ATORVASTATIN CALCIUM 10 MG TABLET PO SCH (08:17)
[2021-10-04] MEDS: VITAMIN B COMP/VIT C/FOLIC ACID CAPSULE PO SCH (08:17)
[2021-10-04] MEDS: GABAPENTIN 100 MG CAPSULE PO SCH ×2 (08:17→21:00)
[2021-10-04] MEDS: BUMETANIDE 1 MG TABLET PO SCH (08:17)
[2021-10-04] MEDS: DOCUSATE SODIUM 250 MG CAPSULE PO SCH ×2 (08:17→20:59)
[2021-10-04] MEDS: SitaGLIPtin PHOSPHATE 25 MG TABLET PO SCH (08:17)
[2021-10-04] MEDS: HEPARIN SODIUM,PORCINE 5,000 UNITS/ML VIAL SQ SCH ×2 (08:18→21:00)
[2021-10-04 12:20] LABS: GLUCOMETER DEV NAME(LOC) 2WR.2B; GLUCOSE,POINT OF CARE 94 MG/DL (70-110)
[2021-10-04 16:02] VITALS: BP 150/83
[2021-10-04 18:08] LABS: GLUCOMETER DEV NAME(LOC) 2WR.2B; GLUCOSE,POINT OF CARE 140 MG/DL (70-110)
[2021-10-04 19:00] VITALS: BP 134/66
[2021-10-04] MEDS: AmLODIPine BESYLATE 5 MG TABLET PO SCH (20:59)
[2021-10-04] MEDS: SENNA 187 MG TABLET PO SCH (21:00)
[2021-10-04 21:17] VITALS: BP 142/76
[2021-10-04 22:01] LABS: GLUCOMETER DEV NAME(LOC) 2WR.2B; GLUCOSE,POINT OF CARE 127 MG/DL (70-110)
[2021-10-05] VITALS: BP 142/85
[2021-10-05 06:15] LABS: GLUCOMETER DEV NAME(LOC) 2WR.1C; GLUCOSE,POINT OF CARE 132 MG/DL (70-110)
[2021-10-05 06:50] LABS: CALCIUM, TOTAL 7.7 mg/dL (8.8-10.5); CREATININE 10.96 mg/dL (0.60-1.30); MAGNESIUM 3.7 mg/dL (1.80-2.40); POTASSIUM 4.8 mmol/L (3.5-5.1)
[2021-10-05] MEDS: OMEPRAZOLE 20 MG CAPSULE PO SCH (07:55)
[2021-10-05] MEDS: VITAMIN B COMP/VIT C/FOLIC ACID CAPSULE PO SCH (07:56)
[2021-10-05] MEDS: SitaGLIPtin PHOSPHATE 25 MG TABLET PO SCH (07:56)
[2021-10-05] MEDS: HEPARIN SODIUM,PORCINE 5,000 UNITS/ML VIAL SQ SCH ×2 (07:56→19:49)
[2021-10-05] MEDS: ATORVASTATIN CALCIUM 10 MG TABLET PO SCH (07:56)
[2021-10-05] MEDS: ASPIRIN 81 MG CHEWABLE TABLET PO SCH (07:57)
[2021-10-05] MEDS: SEVELAMER CARBONATE 800 MG TABLET PO SCH ×3 (07:57→17:52)
[2021-10-05] MEDS: POLYETHYLENE GLYCOL 3350 17 GM PACKET PO SCH (07:57)
[2021-10-05] MEDS: GABAPENTIN 100 MG CAPSULE PO SCH ×2 (07:57→19:49)
[2021-10-05] MEDS: DOCUSATE SODIUM 250 MG CAPSULE PO SCH ×2 (07:57→19:46)
[2021-10-05] MEDS: BUMETANIDE 1 MG TABLET PO SCH (07:57)
[2021-10-05] MEDS: ETHYL ALCOHOL 62% ANTISEPTIC NASAL INHALANT 0.6 ML AMPUL NASAL SCH ×2 (07:58→19:49)
[2021-10-05] MEDS: EPOETIN ALFA 10,000 UNITS/ML VIAL SQ SCH (07:59)
[2021-10-05 09:55] VITALS: BP 145/78
[2021-10-05 13:34] LABS: GLUCOMETER DEV NAME(LOC) 2WR.1C; GLUCOSE,POINT OF CARE 89 MG/DL (70-110)
[2021-10-05 16:40] VITALS: BP 134/78
[2021-10-05] MEDS: GENTAMICIN SULFATE 0.1% 15 GM OINTMENT TP SCH (18:17)
[2021-10-05] MEDS: METHYL SALICYLATE/MENTHOL 85 GM CREAM TP PRN (18:17)
[2021-10-05 18:24] VITALS: BP 143/77
[2021-10-05] MEDS: SENNA 187 MG TABLET PO SCH (19:46)
[2021-10-05] MEDS: AmLODIPine BESYLATE 5 MG TABLET PO SCH (19:49)
[2021-10-06] VITALS: BP 147/83
[2021-10-06] MEDS: METHYL SALICYLATE/MENTHOL 85 GM CREAM TP PRN ×3 (04:03→20:02)
[2021-10-06 04:12] LABS: GLUCOMETER DEV NAME(LOC) 2WR.2B; GLUCOSE,POINT OF CARE 106 MG/DL (70-110)
[2021-10-06 05:15] LABS: GLUCOMETER DEV NAME(LOC) 2WR.1C; GLUCOSE,POINT OF CARE 102 MG/DL (70-110)
[2021-10-06 06:39] LABS: GLUCOMETER DEV NAME(LOC) 2WR.2B; GLUCOSE,POINT OF CARE 98 MG/DL (70-110)
[2021-10-06 06:52] LABS: CALCIUM, TOTAL 7.6 mg/dL (8.8-10.5); CREATININE 10.82 mg/dL (0.60-1.30); MAGNESIUM 3.5 mg/dL (1.80-2.40); POTASSIUM 4.7 mmol/L (3.5-5.1)
[2021-10-06] MEDS: SEVELAMER CARBONATE 800 MG TABLET PO SCH ×3 (07:47→17:20)
[2021-10-06] MEDS: OMEPRAZOLE 20 MG CAPSULE PO SCH (07:48)
[2021-10-06] MEDS: SitaGLIPtin PHOSPHATE 25 MG TABLET PO SCH (07:48)
[2021-10-06] MEDS: BUMETANIDE 1 MG TABLET PO SCH (07:49)
[2021-10-06] MEDS: VITAMIN B COMP/VIT C/FOLIC ACID CAPSULE PO SCH (07:49)
[2021-10-06] MEDS: ETHYL ALCOHOL 62% ANTISEPTIC NASAL INHALANT 0.6 ML AMPUL NASAL SCH ×2 (07:49→20:03)
[2021-10-06] MEDS: POLYETHYLENE GLYCOL 3350 17 GM PACKET PO SCH (07:49)
[2021-10-06] MEDS: HEPARIN SODIUM,PORCINE 5,000 UNITS/ML VIAL SQ SCH ×2 (07:49→20:03)
[2021-10-06] MEDS: DOCUSATE SODIUM 250 MG CAPSULE PO SCH ×2 (07:49→20:03)
[2021-10-06] MEDS: ASPIRIN 81 MG CHEWABLE TABLET PO SCH (07:50)
[2021-10-06] MEDS: GABAPENTIN 100 MG CAPSULE PO SCH ×2 (07:50→20:03)
[2021-10-06] MEDS: ATORVASTATIN CALCIUM 10 MG TABLET PO SCH (07:50)
[2021-10-06 08:49] VITALS: BP 132/73
[2021-10-06] MEDS: ACETAMINOPHEN 325 MG TABLET PO PRN ×2 (09:39→20:34)
[2021-10-06] MEDS: HYDROmorphone HCL 2 MG TABLET PO PRN (09:47)
[2021-10-06] MEDS: INSULIN LISPRO 100 UNITS/ML SQ PRN (12:28)
[2021-10-06 13:34] LABS: GLUCOMETER DEV NAME(LOC) 2WR.2B; GLUCOSE,POINT OF CARE 148 MG/DL (70-110)
[2021-10-06 16:03] VITALS: BP 149/80
[2021-10-06] MEDS: GENTAMICIN SULFATE 0.1% 15 GM OINTMENT TP SCH (17:23)
[2021-10-06 17:48] LABS: GLUCOMETER DEV NAME(LOC) 2WR.2B; GLUCOSE,POINT OF CARE 120 MG/DL (70-110)
[2021-10-06 20:02] VITALS: BP 156/93
[2021-10-06] MEDS: SENNA 187 MG TABLET PO SCH (20:03)
[2021-10-06 20:08] VITALS: BP 156/93
[2021-10-06] MEDS: AmLODIPine BESYLATE 5 MG TABLET PO SCH (20:11)
[2021-10-06 21:08] LABS: GLUCOMETER DEV NAME(LOC) 2WR.2B; GLUCOSE,POINT OF CARE 134 MG/DL (70-110)
[2021-10-07] MEDS: METHYL SALICYLATE/MENTHOL 85 GM CREAM TP PRN ×2 (00:45→18:33)
[2021-10-07 00:46] VITALS: BP 132/67
[2021-10-07] MEDS: ACETAMINOPHEN 325 MG TABLET PO PRN ×2 (00:46→10:06)
[2021-10-07] MEDS ORDERED: METH85CR16 TP (03:16)
[2021-10-07 06:39] LABS: CALCIUM, TOTAL 7.6 mg/dL (8.8-10.5); CREATININE 10.8 mg/dL (0.60-1.30); MAGNESIUM 3.8 mg/dL (1.80-2.40); POTASSIUM 5.1 mmol/L (3.5-5.1)
[2021-10-07] MEDS: SEVELAMER CARBONATE 800 MG TABLET PO SCH ×3 (08:00→17:45)
[2021-10-07 08:05] VITALS: BP 139/74
[2021-10-07] MEDS: ETHYL ALCOHOL 62% ANTISEPTIC NASAL INHALANT 0.6 ML AMPUL NASAL SCH ×2 (08:18→21:37)
[2021-10-07] MEDS: POLYETHYLENE GLYCOL 3350 17 GM PACKET PO SCH (08:18)
[2021-10-07] MEDS: ATORVASTATIN CALCIUM 10 MG TABLET PO SCH (08:19)
[2021-10-07] MEDS: SitaGLIPtin PHOSPHATE 25 MG TABLET PO SCH (08:19)
[2021-10-07] MEDS: HEPARIN SODIUM,PORCINE 5,000 UNITS/ML VIAL SQ SCH ×2 (08:19→21:36)
[2021-10-07] MEDS: BUMETANIDE 1 MG TABLET PO SCH (08:19)
[2021-10-07] MEDS: VITAMIN B COMP/VIT C/FOLIC ACID CAPSULE PO SCH (08:19)
[2021-10-07] MEDS: GABAPENTIN 100 MG CAPSULE PO SCH ×2 (08:19→21:35)
[2021-10-07] MEDS: OMEPRAZOLE 20 MG CAPSULE PO SCH (08:19)
[2021-10-07] MEDS: ASPIRIN 81 MG CHEWABLE TABLET PO SCH (08:19)
[2021-10-07] MEDS: DOCUSATE SODIUM 250 MG CAPSULE PO SCH ×2 (08:20→21:35)
[2021-10-07 15:16] VITALS: BP 137/64
[2021-10-07 16:08] LABS: GLUCOMETER DEV NAME(LOC) 2WR.1C; GLUCOSE,POINT OF CARE 115 MG/DL (70-110)
[2021-10-07 16:08] LABS: GLUCOMETER DEV NAME(LOC) 2WR.1C; GLUCOSE,POINT OF CARE 136 MG/DL (70-110)
[2021-10-07 18:26] LABS: GLUCOMETER DEV NAME(LOC) 2WR.1C; GLUCOSE,POINT OF CARE 112 MG/DL (70-110)
[2021-10-07 21:30] VITALS: BP 138/79
[2021-10-07] MEDS: AmLODIPine BESYLATE 5 MG TABLET PO SCH (21:35)
[2021-10-07] MEDS: SENNA 187 MG TABLET PO SCH (21:35)
[2021-10-07] MEDS: GENTAMICIN SULFATE 0.1% 15 GM OINTMENT TP SCH (22:29)
[2021-10-07 22:43] LABS: GLUCOMETER DEV NAME(LOC) 2WR.1C; GLUCOSE,POINT OF CARE 114 MG/DL (70-110)
[2021-10-08] VITALS: BP 152/92
[2021-10-08 06:23] LABS: GLUCOMETER DEV NAME(LOC) 2WR.1C; GLUCOSE,POINT OF CARE 147 MG/DL (70-110)
[2021-10-08 07:06] LABS: CALCIUM, TOTAL 7.7 mg/dL (8.8-10.5); CREATININE 11.08 mg/dL (0.60-1.30); POTASSIUM 5.4 mmol/L (3.5-5.1)
[2021-10-08] MEDS: ETHYL ALCOHOL 62% ANTISEPTIC NASAL INHALANT 0.6 ML AMPUL NASAL SCH ×2 (07:43→20:16)
[2021-10-08] MEDS: SEVELAMER CARBONATE 800 MG TABLET PO SCH ×3 (07:43→17:36)
[2021-10-08] MEDS: EPOETIN ALFA 10,000 UNITS/ML VIAL SQ SCH (07:43)
[2021-10-08] MEDS: BUMETANIDE 1 MG TABLET PO SCH (07:44)
[2021-10-08] MEDS: OMEPRAZOLE 20 MG CAPSULE PO SCH (07:44)
[2021-10-08] MEDS: GABAPENTIN 100 MG CAPSULE PO SCH ×2 (07:44→20:14)
[2021-10-08] MEDS: DOCUSATE SODIUM 250 MG CAPSULE PO SCH ×2 (07:44→20:14)
[2021-10-08] MEDS: HEPARIN SODIUM,PORCINE 5,000 UNITS/ML VIAL SQ SCH ×2 (07:44→20:14)
[2021-10-08] MEDS: SitaGLIPtin PHOSPHATE 25 MG TABLET PO SCH (07:44)
[2021-10-08] MEDS: ATORVASTATIN CALCIUM 10 MG TABLET PO SCH (07:45)
[2021-10-08] MEDS: POLYETHYLENE GLYCOL 3350 17 GM PACKET PO SCH (07:45)
[2021-10-08] MEDS: ASPIRIN 81 MG CHEWABLE TABLET PO SCH (07:45)
[2021-10-08] MEDS: VITAMIN B COMP/VIT C/FOLIC ACID CAPSULE PO SCH (07:46)
[2021-10-08 09:56] VITALS: BP 136/73
[2021-10-08] MEDS: INSULIN LISPRO 100 UNITS/ML SQ PRN (12:45)
[2021-10-08 12:57] LABS: GLUCOMETER DEV NAME(LOC) 2WR.1C; GLUCOSE,POINT OF CARE 155 MG/DL (70-110)
[2021-10-08] MEDS ORDERED: DOCU-350 PO (15:11)
[2021-10-08] MEDS ORDERED: AMLO-257 PO (15:11)
[2021-10-08] MEDS ORDERED: SODIUM ZIRCONIUM CYCLOSILICATE 5 GM POWDER PACKET PO ONE (15:15)
[2021-10-08 16:36] VITALS: BP 144/79
[2021-10-08] MEDS: GENTAMICIN SULFATE 0.1% 15 GM OINTMENT TP SCH (18:20)
[2021-10-08] MEDS: METHYL SALICYLATE/MENTHOL 85 GM CREAM TP PRN (19:05)
[2021-10-08] MEDS: AmLODIPine BESYLATE 5 MG TABLET PO SCH (20:14)
[2021-10-08] MEDS: SENNA 187 MG TABLET PO SCH (20:14)
[2021-10-08 21:03] LABS: GLUCOMETER DEV NAME(LOC) 2WR.1C; GLUCOSE,POINT OF CARE 93 MG/DL (70-110)
[2021-10-08 21:37] VITALS: BP 149/85
[2021-10-09 03:30] VITALS: BP 146/68
[2021-10-09] MEDS: METHYL SALICYLATE/MENTHOL 85 GM CREAM TP PRN ×2 (04:43→19:30)
[2021-10-09 06:27] LABS: GLUCOMETER DEV NAME(LOC) 2WR.1C; GLUCOSE,POINT OF CARE 142 MG/DL (70-110)
[2021-10-09 08:10] VITALS: BP 144/81
[2021-10-09] MEDS: SEVELAMER CARBONATE 800 MG TABLET PO SCH ×3 (08:20→17:24)
[2021-10-09] MEDS: INSULIN LISPRO 100 UNITS/ML SQ PRN (08:41)
[2021-10-09] MEDS: POLYETHYLENE GLYCOL 3350 17 GM PACKET PO SCH (08:43)
[2021-10-09] MEDS: ETHYL ALCOHOL 62% ANTISEPTIC NASAL INHALANT 0.6 ML AMPUL NASAL SCH ×2 (08:45→21:24)
[2021-10-09] MEDS: HEPARIN SODIUM,PORCINE 5,000 UNITS/ML VIAL SQ SCH ×2 (08:46→21:24)
[2021-10-09] MEDS: OMEPRAZOLE 20 MG CAPSULE PO SCH (08:46)
[2021-10-09] MEDS: SitaGLIPtin PHOSPHATE 25 MG TABLET PO SCH (08:46)
[2021-10-09] MEDS: GABAPENTIN 100 MG CAPSULE PO SCH ×2 (08:46→21:24)
[2021-10-09] MEDS: DOCUSATE SODIUM 250 MG CAPSULE PO SCH ×2 (08:46→21:24)
[2021-10-09] MEDS: ATORVASTATIN CALCIUM 10 MG TABLET PO SCH (08:47)
[2021-10-09] MEDS: VITAMIN B COMP/VIT C/FOLIC ACID CAPSULE PO SCH (08:47)
[2021-10-09] MEDS: ASPIRIN 81 MG CHEWABLE TABLET PO SCH (08:47)
[2021-10-09] MEDS: BUMETANIDE 1 MG TABLET PO SCH (08:47)
[2021-10-09 11:42] LABS: GLUCOMETER DEV NAME(LOC) 2WR.1C; GLUCOSE,POINT OF CARE 106 MG/DL (70-110)
[2021-10-09] MEDS: HYDROmorphone HCL 2 MG TABLET PO PRN (13:08)
[2021-10-09 16:00] VITALS: BP 150/80
[2021-10-09 18:49] LABS: GLUCOMETER DEV NAME(LOC) 2WR.1C; GLUCOSE,POINT OF CARE 101 MG/DL (70-110)
[2021-10-09 21:24] VITALS: BP 129/62
[2021-10-09] MEDS: SENNA 187 MG TABLET PO SCH (21:24)
[2021-10-09] MEDS: AmLODIPine BESYLATE 5 MG TABLET PO SCH (21:25)
[2021-10-09] MEDS: GENTAMICIN SULFATE 0.1% 15 GM OINTMENT TP SCH (21:26)
[2021-10-09 22:26] LABS: GLUCOMETER DEV NAME(LOC) 2WR.1C; GLUCOSE,POINT OF CARE 111 MG/DL (70-110)
[2021-10-10 00:20] VITALS: BP 139/79
[2021-10-10 06:22] LABS: GLUCOMETER DEV NAME(LOC) 2WR.2B; GLUCOSE,POINT OF CARE 151 MG/DL (70-110)
[2021-10-10 07:34] LABS: CREATININE 11.21 mg/dL (0.60-1.30); PHOSPHORUS 6.7 mg/dL (2.5-4.9); POTASSIUM 5.1 mmol/L (3.5-5.1)
[2021-10-10] MEDS: SEVELAMER CARBONATE 800 MG TABLET PO SCH ×3 (07:56→17:20)
[2021-10-10] MEDS: ATORVASTATIN CALCIUM 10 MG TABLET PO SCH (07:57)
[2021-10-10] MEDS: POLYETHYLENE GLYCOL 3350 17 GM PACKET PO SCH (07:57)
[2021-10-10] MEDS: ASPIRIN 81 MG CHEWABLE TABLET PO SCH (07:57)
[2021-10-10] MEDS: SitaGLIPtin PHOSPHATE 25 MG TABLET PO SCH (07:57)
[2021-10-10] MEDS: BUMETANIDE 1 MG TABLET PO SCH (07:57)
[2021-10-10] MEDS: OMEPRAZOLE 20 MG CAPSULE PO SCH (07:57)
[2021-10-10] MEDS: GABAPENTIN 100 MG CAPSULE PO SCH ×2 (07:58→20:47)
[2021-10-10] MEDS: HEPARIN SODIUM,PORCINE 5,000 UNITS/ML VIAL SQ SCH ×2 (07:58→20:47)
[2021-10-10] MEDS: DOCUSATE SODIUM 250 MG CAPSULE PO SCH ×2 (07:58→20:49)
[2021-10-10] MEDS: VITAMIN B COMP/VIT C/FOLIC ACID CAPSULE PO SCH (07:58)
[2021-10-10] MEDS: INSULIN LISPRO 100 UNITS/ML SQ PRN ×2 (07:59→20:51)
[2021-10-10] MEDS: ETHYL ALCOHOL 62% ANTISEPTIC NASAL INHALANT 0.6 ML AMPUL NASAL SCH ×2 (08:09→20:47)
[2021-10-10 09:15] VITALS: BP 115/73
[2021-10-10 12:12] LABS: GLUCOMETER DEV NAME(LOC) 2WR.2B; GLUCOSE,POINT OF CARE 138 MG/DL (70-110)
[2021-10-10 16:59] VITALS: BP 145/75
[2021-10-10] MEDS: GENTAMICIN SULFATE 0.1% 15 GM OINTMENT TP SCH (17:19)
[2021-10-10 17:56] LABS: GLUCOMETER DEV NAME(LOC) 2WR.2B; GLUCOSE,POINT OF CARE 108 MG/DL (70-110)
[2021-10-10 20:46] VITALS: BP 122/61
[2021-10-10] MEDS: SENNA 187 MG TABLET PO SCH (20:47)
[2021-10-10] MEDS: AmLODIPine BESYLATE 5 MG TABLET PO SCH (20:47)
[2021-10-10 22:10] LABS: GLUCOMETER DEV NAME(LOC) 2WR.2B; GLUCOSE,POINT OF CARE 152 MG/DL (70-110)
[2021-10-11 06:20] LABS: GLUCOMETER DEV NAME(LOC) 2WR.2B; GLUCOSE,POINT OF CARE 83 MG/DL (70-110)
[2021-10-11 06:50] VITALS: BP 131/77
[2021-10-11] MEDS: SEVELAMER CARBONATE 800 MG TABLET PO SCH ×3 (07:39→17:01)
[2021-10-11] MEDS: POLYETHYLENE GLYCOL 3350 17 GM PACKET PO SCH (08:04)
[2021-10-11 08:05] VITALS: BP 131/73
[2021-10-11] MEDS: ASPIRIN 81 MG CHEWABLE TABLET PO SCH (08:06)
[2021-10-11] MEDS: HEPARIN SODIUM,PORCINE 5,000 UNITS/ML VIAL SQ SCH ×2 (08:06→21:35)
[2021-10-11] MEDS: BUMETANIDE 1 MG TABLET PO SCH (08:07)
[2021-10-11] MEDS: VITAMIN B COMP/VIT C/FOLIC ACID CAPSULE PO SCH (08:07)
[2021-10-11] MEDS: OMEPRAZOLE 20 MG CAPSULE PO SCH (08:07)
[2021-10-11] MEDS: SitaGLIPtin PHOSPHATE 25 MG TABLET PO SCH (08:07)
[2021-10-11] MEDS: GABAPENTIN 100 MG CAPSULE PO SCH ×2 (08:07→21:36)
[2021-10-11] MEDS: DOCUSATE SODIUM 250 MG CAPSULE PO SCH ×2 (08:07→21:35)
[2021-10-11] MEDS: ATORVASTATIN CALCIUM 10 MG TABLET PO SCH (08:07)
[2021-10-11] MEDS: ETHYL ALCOHOL 62% ANTISEPTIC NASAL INHALANT 0.6 ML AMPUL NASAL SCH ×2 (08:07→21:36)
[2021-10-11 12:06] LABS: GLUCOMETER DEV NAME(LOC) 2WR.2B; GLUCOSE,POINT OF CARE 149 MG/DL (70-110)
[2021-10-11] MEDS: INSULIN LISPRO 100 UNITS/ML SQ PRN ×2 (12:19→21:44)
[2021-10-11 15:30] VITALS: BP 143/77
[2021-10-11 18:25] LABS: GLUCOMETER DEV NAME(LOC) 2WR.2B; GLUCOSE,POINT OF CARE 108 MG/DL (70-110)
[2021-10-11] MEDS: GENTAMICIN SULFATE 0.1% 15 GM OINTMENT TP SCH (18:53)
[2021-10-11 21:31] VITALS: BP 141/79
[2021-10-11] MEDS: AmLODIPine BESYLATE 5 MG TABLET PO SCH (21:35)
[2021-10-11] MEDS: SENNA 187 MG TABLET PO SCH (21:35)
[2021-10-11 21:49] LABS: GLUCOMETER DEV NAME(LOC) 2WR.2B; GLUCOSE,POINT OF CARE 160 MG/DL (70-110)
[2021-10-12 00:18] VITALS: BP 140/76
[2021-10-12 06:46] LABS: GLUCOMETER DEV NAME(LOC) 2WR.2B; GLUCOSE,POINT OF CARE 115 MG/DL (70-110)
[2021-10-12 07:00] LABS: BASOPHILS % (AUTO) 1.2 % (0.0-2.0); EOSINOPHILS % (AUTO) 4.3 % (1.0-6.0); HEMATOCRIT 27.1 % (41-53); HEMOGLOBIN 8.8 g/dL (13.5-17.5); LYMPHOCYTES # (AUTO) 1.1 K/uL (1.0-4.8); LYMPHOCYTES % (AUTO) 12.3 % (22.0-44.0); MEAN CORPUSCULAR HEMOGLOBIN 30.9 pg (26.0-34.0); MEAN CORPUSCULAR HGB CONC 32.4 G/dL (31.0-37.0); MEAN CORPUSCULAR VOLUME 95 fL (80-100); MONOCYTES # (AUTO) 1.1 K/uL (0.1-1.0); MONOCYTES % (AUTO) 12.3 % (2.0-9.0); NEUTROPHILS # (AUTO) 6.4 K/uL (1.8-7.7); NEUTROPHILS % (AUTO) 69.9 % (40.0-70.0); PLATELET COUNT (AUTO) 266 K/uL (150-450); RED BLOOD CELL COUNT(AUTO) 2.85 MIL/uL (4.50-5.90)
[2021-10-12 07:04] LABS: CALCIUM, TOTAL 8.3 mg/dL (8.8-10.5); CREATININE 11.44 mg/dL (0.60-1.30); MAGNESIUM 3.7 mg/dL (1.80-2.40); PHOSPHORUS 6.7 mg/dL (2.5-4.9); POTASSIUM 5.1 mmol/L (3.5-5.1)
[2021-10-12] MEDS: SEVELAMER CARBONATE 800 MG TABLET PO SCH ×3 (07:47→17:40)
[2021-10-12] MEDS: ETHYL ALCOHOL 62% ANTISEPTIC NASAL INHALANT 0.6 ML AMPUL NASAL SCH ×2 (08:45→21:32)
[2021-10-12] MEDS: VITAMIN B COMP/VIT C/FOLIC ACID CAPSULE PO SCH (08:46)
[2021-10-12] MEDS: EPOETIN ALFA 10,000 UNITS/ML VIAL SQ SCH (08:46)
[2021-10-12] MEDS: OMEPRAZOLE 20 MG CAPSULE PO SCH (08:46)
[2021-10-12] MEDS: DOCUSATE SODIUM 250 MG CAPSULE PO SCH ×2 (08:46→21:32)
[2021-10-12] MEDS: SitaGLIPtin PHOSPHATE 25 MG TABLET PO SCH (08:46)
[2021-10-12] MEDS: ASPIRIN 81 MG CHEWABLE TABLET PO SCH (08:47)
[2021-10-12] MEDS: HEPARIN SODIUM,PORCINE 5,000 UNITS/ML VIAL SQ SCH ×2 (08:47→21:33)
[2021-10-12] MEDS: BUMETANIDE 1 MG TABLET PO SCH (08:47)
[2021-10-12] MEDS: ATORVASTATIN CALCIUM 10 MG TABLET PO SCH (08:47)
[2021-10-12] MEDS: GABAPENTIN 100 MG CAPSULE PO SCH ×2 (08:47→21:32)
[2021-10-12] MEDS: POLYETHYLENE GLYCOL 3350 17 GM PACKET PO SCH (08:48)
[2021-10-12 09:45] VITALS: BP 115/77
[2021-10-12 13:22] LABS: GLUCOMETER DEV NAME(LOC) 2WR.2B; GLUCOSE,POINT OF CARE 137 MG/DL (70-110)
[2021-10-12 15:00] VITALS: BP 100/72
[2021-10-12] MEDS: GENTAMICIN SULFATE 0.1% 15 GM OINTMENT TP SCH (17:40)
[2021-10-12] MEDS ORDERED: B CO1CAP6 PO (18:37)
[2021-10-12 19:13] LABS: GLUCOMETER DEV NAME(LOC) 2WR.2B; GLUCOSE,POINT OF CARE 130 MG/DL (70-110)
[2021-10-12 21:10] VITALS: BP 140/71
[2021-10-12] MEDS: AmLODIPine BESYLATE 5 MG TABLET PO SCH (21:32)
[2021-10-12] MEDS: SENNA 187 MG TABLET PO SCH (21:32)
[2021-10-12 22:12] LABS: GLUCOMETER DEV NAME(LOC) 2WR.2B; GLUCOSE,POINT OF CARE 113 MG/DL (70-110)
[2021-10-13] VITALS: BP 141/77
[2021-10-13 01:11] LABS: GLUCOMETER DEV NAME(LOC) 2WR.2B; GLUCOSE,POINT OF CARE 164 MG/DL (70-110)
[2021-10-13] MEDS ORDERED: INSU100I26 SQ (05:57)
[2021-10-13 06:38] LABS: GLUCOMETER DEV NAME(LOC) 2WR.1C; GLUCOSE,POINT OF CARE 98 MG/DL (70-110)
[2021-10-13] MEDS: SitaGLIPtin PHOSPHATE 25 MG TABLET PO SCH (07:57)
[2021-10-13] MEDS: ETHYL ALCOHOL 62% ANTISEPTIC NASAL INHALANT 0.6 ML AMPUL NASAL SCH (07:57)
[2021-10-13] MEDS: VITAMIN B COMP/VIT C/FOLIC ACID CAPSULE PO SCH (07:57)
[2021-10-13] MEDS: DOCUSATE SODIUM 250 MG CAPSULE PO SCH (07:57)
[2021-10-13] MEDS: OMEPRAZOLE 20 MG CAPSULE PO SCH (07:57)
[2021-10-13] MEDS: SEVELAMER CARBONATE 800 MG TABLET PO SCH (07:57)
[2021-10-13] MEDS: ATORVASTATIN CALCIUM 10 MG TABLET PO SCH (07:58)
[2021-10-13] MEDS: HEPARIN SODIUM,PORCINE 5,000 UNITS/ML VIAL SQ SCH (07:58)
[2021-10-13] MEDS: ASPIRIN 81 MG CHEWABLE TABLET PO SCH (07:59)
[2021-10-13] MEDS: GABAPENTIN 100 MG CAPSULE PO SCH (07:59)
[2021-10-13] MEDS: BUMETANIDE 1 MG TABLET PO SCH (07:59)
[2021-10-13] MEDS: POLYETHYLENE GLYCOL 3350 17 GM PACKET PO SCH (08:00)
[2021-10-13 09:36] VITALS: BP 137/76
[2021-10-13] MEDS ORDERED: B CO1CAP6 PO (10:45)
[2021-10-13] MEDS ORDERED: INSU100V SQ (10:47)
[2021-10-14] MEDS ORDERED: EPOETIN ALFA 10,000 UNITS/ML 2 ML VIAL SQ SCH (09:00)
== END 2021-10-13 12:00 | disposition home health service (06) | DRG 299 ==
LOC: 2WR 16:10
PROVIDERS: ADMIT Physical Medicine & Rehabilitation; ATTEND Physical Medicine & Rehabilitation
PROC: 3E1M39Z Irrigation of Peritoneal Cavity using Dialysate, Percutaneous Approach (ICD-10-PCS; 2021-09-23)
PROC: 3E1M39Z Irrigation of Peritoneal Cavity using Dialysate, Percutaneous Approach (ICD-10-PCS; principal; 2021-09-24)
PROC: 3E1M39Z Irrigation of Peritoneal Cavity using Dialysate, Percutaneous Approach (ICD-10-PCS; 2021-09-25)
PROC: 3E1M39Z Irrigation of Peritoneal Cavity using Dialysate, Percutaneous Approach (ICD-10-PCS; 2021-09-26)
PROC: 3E1M39Z Irrigation of Peritoneal Cavity using Dialysate, Percutaneous Approach (ICD-10-PCS; 2021-09-27)
PROC: 3E1M39Z Irrigation of Peritoneal Cavity using Dialysate, Percutaneous Approach (ICD-10-PCS; 2021-09-28)
PROC: 3E1M39Z Irrigation of Peritoneal Cavity using Dialysate, Percutaneous Approach (ICD-10-PCS; 2021-09-29)
PROC: 3E1M39Z Irrigation of Peritoneal Cavity using Dialysate, Percutaneous Approach (ICD-10-PCS; 2021-09-30)
PROC: 3E1M39Z Irrigation of Peritoneal Cavity using Dialysate, Percutaneous Approach (ICD-10-PCS; 2021-10-01)
PROC: 3E1M39Z Irrigation of Peritoneal Cavity using Dialysate, Percutaneous Approach (ICD-10-PCS; 2021-10-02)
PROC: 3E1M39Z Irrigation of Peritoneal Cavity using Dialysate, Percutaneous Approach (ICD-10-PCS; 2021-10-03)
PROC: 3E1M39Z Irrigation of Peritoneal Cavity using Dialysate, Percutaneous Approach (ICD-10-PCS; 2021-10-04)
PROC: 3E1M39Z Irrigation of Peritoneal Cavity using Dialysate, Percutaneous Approach (ICD-10-PCS; 2021-10-05)
PROC: 3E1M39Z Irrigation of Peritoneal Cavity using Dialysate, Percutaneous Approach (ICD-10-PCS; 2021-10-06)
PROC: 3E1M39Z Irrigation of Peritoneal Cavity using Dialysate, Percutaneous Approach (ICD-10-PCS; 2021-10-07)
PROC: 3E1M39Z Irrigation of Peritoneal Cavity using Dialysate, Percutaneous Approach (ICD-10-PCS; 2021-10-08)
PROC: 3E1M39Z Irrigation of Peritoneal Cavity using Dialysate, Percutaneous Approach (ICD-10-PCS; 2021-10-09)
PROC: 3E1M39Z Irrigation of Peritoneal Cavity using Dialysate, Percutaneous Approach (ICD-10-PCS; 2021-10-10)
PROC: 3E1M39Z Irrigation of Peritoneal Cavity using Dialysate, Percutaneous Approach (ICD-10-PCS; 2021-10-11)
PROC: 3E1M39Z Irrigation of Peritoneal Cavity using Dialysate, Percutaneous Approach (ICD-10-PCS; 2021-10-12)
PROC: 3E1M39Z Irrigation of Peritoneal Cavity using Dialysate, Percutaneous Approach (ICD-10-PCS; 2021-10-13)
DX: E11.51 Type 2 diabetes mellitus with diabetic peripheral angiopathy without gangrene (principal); N18.6 End stage renal disease; T25.322A Burn of third degree of left foot, initial encounter; I13.2 Hypertensive heart and chronic kidney disease with heart failure and with stage 5 chronic kidney disease, or end stage renal disease; N25.81 Secondary hyperparathyroidism of renal origin; I50.30 Unspecified diastolic (congestive) heart failure; E44.0 Moderate protein-calorie malnutrition; M86.8X7 Other osteomyelitis, ankle and foot; L03.116 Cellulitis of left lower limb; X08.8XXA Exposure to other specified smoke, fire and flames, initial encounter; E11.319 Type 2 diabetes mellitus with unspecified diabetic retinopathy without macular edema; E11.22 Type 2 diabetes mellitus with diabetic chronic kidney disease; E11.40 Type 2 diabetes mellitus with diabetic neuropathy, unspecified; D63.1 Anemia in chronic kidney disease; E78.5 Hyperlipidemia, unspecified; I25.10 Atherosclerotic heart disease of native coronary artery without angina pectoris; E87.5 Hyperkalemia; R53.1 Weakness; K59.00 Constipation, unspecified; G47.00 Insomnia, unspecified; K21.9 Gastro-esophageal reflux disease without esophagitis; E83.39 Other disorders of phosphorus metabolism; E11.69 Type 2 diabetes mellitus with other specified complication; Z74.1 Need for assistance with personal care; Z99.2 Dependence on renal dialysis; Z89.512 Acquired absence of left leg below knee; Z83.3 Family history of diabetes mellitus; Z82.49 Family history of ischemic heart disease and other diseases of the circulatory system; Z79.4 Long term (current) use of insulin; Z79.899 Other long term (current) drug therapy; Z79.82 Long term (current) use of aspirin; Z90.49 Acquired absence of other specified parts of digestive tract; Z84.1 Family history of disorders of kidney and ureter; Z68.24 Body mass index [BMI] 24.0-24.9, adult; Y93.89 Activity, other specified; Y92.89 Other specified places as the place of occurrence of the external cause; Y99.8 Other external cause status
CPT/HCPCS: 80048; 80053; 82962; 83540; 83550; 83735; 83970; 84100; 85025; 87081; 87340; 90935; 90945; 93970; 97110; 97112; 97116; 97163; 97166; 97530; 97535; 99366; J0885; J1644; Q9967

== ENCOUNTER 2021-11-04 17:51 | Inpatient (IN) | payer MEDICARE, OTHER ==
[~2021-11-04] VITALS: Ht 177.8 cm; Wt 73.9 kg
[~2021-11-04 17:51] MED LIST: AMLO-257 PO; ASPI-1450 PO; ATOR10TA84 PO; B CO1CAP6 PO; BUME1TAB6 PO; CLOT15CR29 TP; DOCU-270 PO; DOCU-350 PO; EPOE10I SQ; FAMO20 PO; GABA-1216 PO; GENTOS TP; HEPA500018 SQ; INSU100V SQ; LEVO250P6 IV; LEVO25TA9 PO; NYST100033 PO; OMEP20 PO; PHOSLOC PO; POLY17PO47 PO; SENN8.6T90 PO; SEVE800T17 PO; SITA25 PO; SODI650T33 PO
[2021-11-04 19:00] VITALS: BP 149/81
[2021-11-04] MEDS ORDERED: DEXTROSE 50%-WATER 25 GM/50 ML SYRINGE IVP PRN (19:30)
[2021-11-04] MEDS: CLOTRIMAZOLE 1% 15 GM CREAM TP SCH (21:21)
[2021-11-04] MEDS: HEPARIN SODIUM,PORCINE 5,000 UNITS/ML VIAL SQ SCH (21:21)
[2021-11-04] MEDS: OXYGEN THERAPY IH SCH (21:22)
[2021-11-04] MEDS: ETHYL ALCOHOL 62% ANTISEPTIC NASAL INHALANT 0.6 ML AMPUL NASAL SCH (21:22)
[2021-11-04] MEDS: SENNA 187 MG TABLET PO SCH (21:22)
[2021-11-04 21:26] LABS: GLUCOMETER DEV NAME(LOC) 2WR.2B; GLUCOSE,POINT OF CARE 108 MG/DL (70-110)
[2021-11-05] VITALS: BP 149/76
[2021-11-05] MEDS: NYSTATIN 500,000 UNITS/5 ML SUSPENSION UDCUP PO SCH ×5 (00:47→23:26)
[2021-11-05 05:52] LABS: GLUCOMETER DEV NAME(LOC) 2WR.2B; GLUCOSE,POINT OF CARE 131 MG/DL (70-110)
[2021-11-05] MEDS: LEVOTHYROXINE SODIUM 25 MCG TABLET PO SCH (06:01)
[2021-11-05 08:17] LABS: BASOPHILS % (AUTO) 0.4 % (0.0-2.0); EOSINOPHILS % (AUTO) 0.7 % (1.0-6.0); HEMATOCRIT 32.9 % (41-53); HEMOGLOBIN 10.5 g/dL (13.5-17.5); LYMPHOCYTES # (AUTO) 0.8 K/uL (1.0-4.8); LYMPHOCYTES % (AUTO) 6.5 % (22.0-44.0); MEAN CORPUSCULAR HEMOGLOBIN 29.7 pg (26.0-34.0); MEAN CORPUSCULAR VOLUME 93 fL (80-100); MONOCYTES # (AUTO) 1.4 K/uL (0.1-1.0); MONOCYTES % (AUTO) 11.8 % (2.0-9.0); NEUTROPHILS # (AUTO) 9.9 K/uL (1.8-7.7); NEUTROPHILS % (AUTO) 80.6 % (40.0-70.0); PLATELET COUNT (AUTO) 252 K/uL (150-450); RED BLOOD CELL COUNT(AUTO) 3.54 MIL/uL (4.50-5.90); RED CELL DISTRIBUTION WIDTH 16.9 % (11.5-14.5)
[2021-11-05 08:27] LABS: ALBUMIN 2.2 g/dL (3.4-5.0); BILIRUBIN,TOTAL 0.4 mg/dL (0.1-1.0); CALCIUM, TOTAL 7.4 mg/dL (8.8-10.5); CREATININE 10.47 mg/dL (0.60-1.30); POTASSIUM 4.4 mmol/L (3.5-5.1); TOTAL PROTEIN, SERUM 7.1 g/dL (6.4-8.2)
[2021-11-05 08:30] VITALS: BP 136/76
[2021-11-05] MEDS: EPOETIN ALFA 10,000 UNITS/ML 2 ML VIAL SQ SCH (08:52)
[2021-11-05] MEDS: HEPARIN SODIUM,PORCINE 5,000 UNITS/ML VIAL SQ SCH ×2 (08:52→20:55)
[2021-11-05] MEDS: CALCIUM ACETATE 667 MG CAPSULE PO SCH ×3 (08:52→17:42)
[2021-11-05] MEDS: ASPIRIN 81 MG CHEWABLE TABLET PO SCH (08:53)
[2021-11-05] MEDS: ETHYL ALCOHOL 62% ANTISEPTIC NASAL INHALANT 0.6 ML AMPUL NASAL SCH ×2 (08:53→20:54)
[2021-11-05] MEDS: ATORVASTATIN CALCIUM 20 MG TABLET PO SCH (08:53)
[2021-11-05] MEDS: FAMOTIDINE 20 MG TABLET PO SCH (08:53)
[2021-11-05] MEDS: OXYGEN THERAPY IH SCH ×2 (08:57→20:49)
[2021-11-05 10:30] LABS: GLUCOMETER DEV NAME(LOC) 2WR.2B; GLUCOSE,POINT OF CARE 129 MG/DL (70-110)
[2021-11-05] MEDS: CLOTRIMAZOLE 1% 15 GM CREAM TP SCH ×2 (11:01→20:54)
[2021-11-05] MEDS: ACETAMINOPHEN 325 MG TABLET PO PRN ×2 (11:56→20:54)
[2021-11-05] MEDS: SODIUM BICARBONATE 650 MG TABLET PO SCH (11:57)
[2021-11-05] MEDS: INSULIN LISPRO 100 UNITS/ML SQ PRN ×2 (13:33→18:15)
[2021-11-05 15:31] LABS: GLUCOMETER DEV NAME(LOC) 2WR.2B; GLUCOSE,POINT OF CARE 146 MG/DL (70-110)
[2021-11-05] MEDS: GENTAMICIN SULFATE 0.3% OPHTHALMIC SOLUTION 5 ML TP SCH (17:42)
[2021-11-05 18:05] VITALS: BP 138/76
[2021-11-05 18:41] LABS: GLUCOMETER DEV NAME(LOC) 2WR.1C; GLUCOSE,POINT OF CARE 155 MG/DL (70-110)
[2021-11-05] MEDS: SENNA 187 MG TABLET PO SCH (20:54)
[2021-11-05 21:31] LABS: GLUCOMETER DEV NAME(LOC) 2WR.2B; GLUCOSE,POINT OF CARE 104 MG/DL (70-110)
[2021-11-05] MEDS: 0.9% SODIUM CHLORIDE 10 ML SYRINGE IVP SCH (23:27)
[2021-11-06] VITALS: BP 143/80
[2021-11-06 06:02] LABS: GLUCOMETER DEV NAME(LOC) 2WR.1C; GLUCOSE,POINT OF CARE 115 MG/DL (70-110)
[2021-11-06] MEDS: NYSTATIN 500,000 UNITS/5 ML SUSPENSION UDCUP PO SCH ×4 (06:04→23:23)
[2021-11-06] MEDS: LEVOTHYROXINE SODIUM 25 MCG TABLET PO SCH (06:04)
[2021-11-06] MEDS: CALCIUM ACETATE 667 MG CAPSULE PO SCH ×3 (09:34→18:16)
[2021-11-06] MEDS: FAMOTIDINE 20 MG TABLET PO SCH (09:34)
[2021-11-06] MEDS: ASPIRIN 81 MG CHEWABLE TABLET PO SCH (09:34)
[2021-11-06] MEDS: HEPARIN SODIUM,PORCINE 5,000 UNITS/ML VIAL SQ SCH ×2 (09:35→20:51)
[2021-11-06] MEDS: ETHYL ALCOHOL 62% ANTISEPTIC NASAL INHALANT 0.6 ML AMPUL NASAL SCH ×2 (09:37→20:50)
[2021-11-06] MEDS: OXYGEN THERAPY IH SCH ×2 (09:37→20:00)
[2021-11-06] MEDS: CLOTRIMAZOLE 1% 15 GM CREAM TP SCH ×2 (09:37→22:07)
[2021-11-06] MEDS: ATORVASTATIN CALCIUM 20 MG TABLET PO SCH (09:37)
[2021-11-06] MEDS: 0.9% SODIUM CHLORIDE 10 ML SYRINGE IVP SCH ×3 (09:52→23:23)
[2021-11-06 10:18] VITALS: BP 125/69
[2021-11-06] MEDS: SODIUM BICARBONATE 650 MG TABLET PO SCH (13:14)
[2021-11-06 13:47] LABS: GLUCOMETER DEV NAME(LOC) 2WR.2B; GLUCOSE,POINT OF CARE 131 MG/DL (70-110)
[2021-11-06 16:00] VITALS: BP 150/85
[2021-11-06 17:47] LABS: GLUCOMETER DEV NAME(LOC) 2WR.2B; GLUCOSE,POINT OF CARE 101 MG/DL (70-110)
[2021-11-06] MEDS ORDERED: SODIUM CHLORIDE 0.9% 250 ML IV ONE (17:52)
[2021-11-06] MEDS ORDERED: ATOR20TA86 PO (17:55)
[2021-11-06] MEDS: LEVOFLOXACIN 250 MG/D5% WATER 50 ML IV SCH (18:17)
[2021-11-06] MEDS: GENTAMICIN SULFATE 0.3% OPHTHALMIC SOLUTION 5 ML TP SCH (20:48)
[2021-11-06] MEDS: SENNA 187 MG TABLET PO SCH (20:51)
[2021-11-06] MEDS: INSULIN LISPRO 100 UNITS/ML SQ PRN (21:17)
[2021-11-06 23:51] LABS: GLUCOMETER DEV NAME(LOC) 2WR.1C; GLUCOSE,POINT OF CARE 143 MG/DL (70-110)
[2021-11-07] VITALS: BP 148/78
[2021-11-07] MEDS: LEVOTHYROXINE SODIUM 25 MCG TABLET PO SCH (05:54)
[2021-11-07] MEDS: NYSTATIN 500,000 UNITS/5 ML SUSPENSION UDCUP PO SCH ×4 (05:55→23:34)
[2021-11-07] MEDS: ASPIRIN 81 MG CHEWABLE TABLET PO SCH (08:40)
[2021-11-07] MEDS: CALCIUM ACETATE 667 MG CAPSULE PO SCH ×3 (08:40→16:19)
[2021-11-07] MEDS: EPOETIN ALFA 10,000 UNITS/ML 2 ML VIAL SQ SCH (08:41)
[2021-11-07] MEDS: HEPARIN SODIUM,PORCINE 5,000 UNITS/ML VIAL SQ SCH ×2 (08:41→21:12)
[2021-11-07] MEDS: ATORVASTATIN CALCIUM 20 MG TABLET PO SCH (08:41)
[2021-11-07] MEDS: FAMOTIDINE 20 MG TABLET PO SCH (08:41)
[2021-11-07] MEDS: OXYGEN THERAPY IH SCH ×2 (08:42→21:16)
[2021-11-07] MEDS: 0.9% SODIUM CHLORIDE 10 ML SYRINGE IVP SCH ×3 (08:42→23:34)
[2021-11-07] MEDS: CLOTRIMAZOLE 1% 15 GM CREAM TP SCH ×2 (08:42→21:13)
[2021-11-07] MEDS: ETHYL ALCOHOL 62% ANTISEPTIC NASAL INHALANT 0.6 ML AMPUL NASAL SCH ×2 (08:42→21:11)
[2021-11-07 09:31] VITALS: BP 129/71
[2021-11-07 11:56] LABS: CALCIUM, TOTAL 7.7 mg/dL (8.8-10.5); CREATININE 10.95 mg/dL (0.60-1.30); POTASSIUM 4.6 mmol/L (3.5-5.1)
[2021-11-07] MEDS: SODIUM BICARBONATE 650 MG TABLET PO SCH (12:43)
[2021-11-07] MEDS: INSULIN LISPRO 100 UNITS/ML SQ PRN (12:46)
[2021-11-07 13:31] LABS: GLUCOMETER DEV NAME(LOC) 2WR.2B; GLUCOSE,POINT OF CARE 112 MG/DL (70-110)
[2021-11-07 13:31] LABS: GLUCOMETER DEV NAME(LOC) 2WR.2B; GLUCOSE,POINT OF CARE 143 MG/DL (70-110)
[2021-11-07 17:26] LABS: GLUCOMETER DEV NAME(LOC) 2WR.2B; GLUCOSE,POINT OF CARE 120 MG/DL (70-110)
[2021-11-07 17:39] VITALS: BP 140/73
[2021-11-07] MEDS: GENTAMICIN SULFATE 0.3% OPHTHALMIC SOLUTION 5 ML TP SCH (18:10)
[2021-11-07] MEDS ORDERED: DOCUSATE SODIUM 100 MG CAPSULE PO SCH (21:00)
[2021-11-07] MEDS: DOCUSATE SODIUM 250 MG CAPSULE PO SCH (21:11)
[2021-11-07] MEDS: SENNA 187 MG TABLET PO SCH (21:12)
[2021-11-07 22:11] LABS: GLUCOMETER DEV NAME(LOC) 2WR.2B; GLUCOSE,POINT OF CARE 139 MG/DL (70-110)
[2021-11-08] MEDS ORDERED: LORazepam 0.5 MG TABLET PO PRN (03:45)
[2021-11-08] MEDS ORDERED: LORazepam 2 MG/ML VIAL IM ONE (03:45)
[2021-11-08 05:50] VITALS: BP 149/79
[2021-11-08] MEDS: LEVOTHYROXINE SODIUM 25 MCG TABLET PO SCH (06:00)
[2021-11-08] MEDS: NYSTATIN 500,000 UNITS/5 ML SUSPENSION UDCUP PO SCH ×3 (06:00→17:45)
[2021-11-08 06:16] LABS: GLUCOMETER DEV NAME(LOC) 2WR.2B; GLUCOSE,POINT OF CARE 95 MG/DL (70-110)
[2021-11-08] MEDS: DOCUSATE SODIUM 250 MG CAPSULE PO SCH ×2 (08:32→21:03)
[2021-11-08] MEDS: ATORVASTATIN CALCIUM 20 MG TABLET PO SCH (08:32)
[2021-11-08] MEDS: ASPIRIN 81 MG CHEWABLE TABLET PO SCH (08:32)
[2021-11-08] MEDS: FAMOTIDINE 20 MG TABLET PO SCH (08:32)
[2021-11-08] MEDS: CALCIUM ACETATE 667 MG CAPSULE PO SCH ×3 (08:32→17:40)
[2021-11-08] MEDS: HEPARIN SODIUM,PORCINE 5,000 UNITS/ML VIAL SQ SCH ×2 (08:32→21:02)
[2021-11-08] MEDS: ETHYL ALCOHOL 62% ANTISEPTIC NASAL INHALANT 0.6 ML AMPUL NASAL SCH ×2 (08:33→21:01)
[2021-11-08] MEDS: CLOTRIMAZOLE 1% 15 GM CREAM TP SCH ×2 (08:33→21:00)
[2021-11-08] MEDS: OXYGEN THERAPY IH SCH ×2 (08:33→20:15)
[2021-11-08] MEDS: 0.9% SODIUM CHLORIDE 10 ML SYRINGE IVP SCH ×2 (08:33→16:00)
[2021-11-08 09:24] VITALS: BP 154/84
[2021-11-08 10:52] LABS: CALCIUM, TOTAL 7.6 mg/dL (8.8-10.5); CREATININE 11.15 mg/dL (0.60-1.30); PHOSPHORUS 7.5 mg/dL (2.5-4.9); POTASSIUM 4.5 mmol/L (3.5-5.1)
[2021-11-08 12:30] VITALS: BP 163/94
[2021-11-08] MEDS: SODIUM BICARBONATE 650 MG TABLET PO SCH (12:48)
[2021-11-08] MEDS: ACETAMINOPHEN 325 MG TABLET PO PRN (12:48)
[2021-11-08 14:01] LABS: GLUCOMETER DEV NAME(LOC) 2WR.2B; GLUCOSE,POINT OF CARE 110 MG/DL (70-110)
[2021-11-08] MEDS: METHYL SALICYLATE/MENTHOL 85 GM CREAM TP PRN (15:38)
[2021-11-08 16:45] VITALS: BP 168/91
[2021-11-08] MEDS: HYDROCODONE/ACETAMINOPHEN 5-325 MG TABLET PO PRN (16:45)
[2021-11-08] MEDS: INSULIN LISPRO 100 UNITS/ML SQ PRN ×2 (17:42→21:17)
[2021-11-08] MEDS: GENTAMICIN SULFATE 0.3% OPHTHALMIC SOLUTION 5 ML TP SCH (17:44)
[2021-11-08 17:45] VITALS: BP 145/83
[2021-11-08] MEDS: BISACODYL 10 MG RECTAL RECTAL SUPPOSITORY PR PRN (18:53)
[2021-11-08] MEDS: LEVOFLOXACIN 250 MG/D5% WATER 50 ML IV SCH (20:16)
[2021-11-08] MEDS: SENNA 187 MG TABLET PO SCH (21:01)
[2021-11-09] MEDS: NYSTATIN 500,000 UNITS/5 ML SUSPENSION UDCUP PO SCH ×4 (00:12→18:47)
[2021-11-09] MEDS: 0.9% SODIUM CHLORIDE 10 ML SYRINGE IVP SCH ×4 (00:12→23:47)
[2021-11-09 00:59] VITALS: BP 156/84
[2021-11-09] MEDS: METHYL SALICYLATE/MENTHOL 85 GM CREAM TP PRN ×2 (00:59→11:21)
[2021-11-09 04:16] LABS: GLUCOMETER DEV NAME(LOC) 2WR.1C; GLUCOSE,POINT OF CARE 158 MG/DL (70-110)
[2021-11-09 04:16] LABS: GLUCOMETER DEV NAME(LOC) 2WR.1C; GLUCOSE,POINT OF CARE 144 MG/DL (70-110)
[2021-11-09] MEDS: ACETAMINOPHEN 325 MG TABLET PO PRN ×2 (05:10→17:58)
[2021-11-09] MEDS: LEVOTHYROXINE SODIUM 25 MCG TABLET PO SCH (05:12)
[2021-11-09 05:57] LABS: GLUCOMETER DEV NAME(LOC) 2WR.2B; GLUCOSE,POINT OF CARE 127 MG/DL (70-110)
[2021-11-09] MEDS: CALCIUM ACETATE 667 MG CAPSULE PO SCH ×3 (07:54→18:46)
[2021-11-09] MEDS: DOCUSATE SODIUM 250 MG CAPSULE PO SCH ×2 (07:54→20:48)
[2021-11-09] MEDS: HEPARIN SODIUM,PORCINE 5,000 UNITS/ML VIAL SQ SCH ×2 (07:54→20:49)
[2021-11-09] MEDS: ASPIRIN 81 MG CHEWABLE TABLET PO SCH (07:55)
[2021-11-09] MEDS: ETHYL ALCOHOL 62% ANTISEPTIC NASAL INHALANT 0.6 ML AMPUL NASAL SCH ×2 (07:55→20:49)
[2021-11-09] MEDS: FAMOTIDINE 20 MG TABLET PO SCH (07:55)
[2021-11-09] MEDS: ATORVASTATIN CALCIUM 20 MG TABLET PO SCH (07:55)
[2021-11-09] MEDS: CLOTRIMAZOLE 1% 15 GM CREAM TP SCH ×2 (07:57→20:52)
[2021-11-09] MEDS: OXYGEN THERAPY IH SCH ×2 (07:58→20:00)
[2021-11-09] MEDS: HYDROCODONE/ACETAMINOPHEN 5-325 MG TABLET PO PRN ×2 (08:42→12:54)
[2021-11-09 08:45] VITALS: BP 153/83
[2021-11-09] MEDS: SODIUM BICARBONATE 650 MG TABLET PO SCH (12:25)
[2021-11-09 13:11] LABS: GLUCOMETER DEV NAME(LOC) 2WR.2B; GLUCOSE,POINT OF CARE 115 MG/DL (70-110)
[2021-11-09 16:09] VITALS: BP 163/91
[2021-11-09 18:22] LABS: GLUCOMETER DEV NAME(LOC) 2WR.2B; GLUCOSE,POINT OF CARE 131 MG/DL (70-110)
[2021-11-09] MEDS: GENTAMICIN SULFATE 0.3% OPHTHALMIC SOLUTION 5 ML TP SCH (18:48)
[2021-11-09 18:58] VITALS: BP 153/85
[2021-11-09] MEDS: SENNA 187 MG TABLET PO SCH (20:48)
[2021-11-09] MEDS: BISACODYL 10 MG RECTAL RECTAL SUPPOSITORY PR PRN (20:49)
[2021-11-09 22:36] LABS: GLUCOMETER DEV NAME(LOC) 2WR.2B; GLUCOSE,POINT OF CARE 140 MG/DL (70-110)
[2021-11-10] MEDS: NYSTATIN 500,000 UNITS/5 ML SUSPENSION UDCUP PO SCH ×4 (00:22→17:36)
[2021-11-10] MEDS: LEVOTHYROXINE SODIUM 25 MCG TABLET PO SCH (05:51)
[2021-11-10 05:56] LABS: GLUCOMETER DEV NAME(LOC) 2WR.2B; GLUCOSE,POINT OF CARE 139 MG/DL (70-110)
[2021-11-10 06:00] VITALS: BP 154/85
[2021-11-10 07:20] VITALS: BP 154/86
[2021-11-10] MEDS: CALCIUM ACETATE 667 MG CAPSULE PO SCH ×3 (07:52→17:12)
[2021-11-10] MEDS: OXYGEN THERAPY IH SCH ×2 (07:53→20:00)
[2021-11-10] MEDS: EPOETIN ALFA 10,000 UNITS/ML 2 ML VIAL SQ SCH (07:55)
[2021-11-10] MEDS: ASPIRIN 81 MG CHEWABLE TABLET PO SCH (07:56)
[2021-11-10] MEDS: ETHYL ALCOHOL 62% ANTISEPTIC NASAL INHALANT 0.6 ML AMPUL NASAL SCH ×2 (07:56→20:30)
[2021-11-10] MEDS: ATORVASTATIN CALCIUM 20 MG TABLET PO SCH (07:56)
[2021-11-10] MEDS: DOCUSATE SODIUM 250 MG CAPSULE PO SCH ×2 (07:56→20:30)
[2021-11-10] MEDS: HEPARIN SODIUM,PORCINE 5,000 UNITS/ML VIAL SQ SCH ×2 (07:56→20:30)
[2021-11-10] MEDS: FAMOTIDINE 20 MG TABLET PO SCH (07:57)
[2021-11-10] MEDS: CLOTRIMAZOLE 1% 15 GM CREAM TP SCH ×2 (07:57→20:30)
[2021-11-10] MEDS: 0.9% SODIUM CHLORIDE 10 ML SYRINGE IVP SCH ×2 (08:00→16:00)
[2021-11-10] MEDS: METHYL SALICYLATE/MENTHOL 85 GM CREAM TP PRN (08:07)
[2021-11-10] MEDS: AmLODIPine BESYLATE 5 MG TABLET PO SCH (08:52)
[2021-11-10] MEDS: HYDROCODONE/ACETAMINOPHEN 5-325 MG TABLET PO PRN (09:22)
[2021-11-10] MEDS: SODIUM BICARBONATE 650 MG TABLET PO SCH (12:25)
[2021-11-10 16:30] VITALS: BP 134/78
[2021-11-10 17:35] LABS: GLUCOMETER DEV NAME(LOC) 2WR.2B; GLUCOSE,POINT OF CARE 110 MG/DL (70-110)
[2021-11-10] MEDS: GENTAMICIN SULFATE 0.3% OPHTHALMIC SOLUTION 5 ML TP SCH (18:40)
[2021-11-10] MEDS: SENNA 187 MG TABLET PO SCH (20:30)
[2021-11-10 21:56] LABS: GLUCOMETER DEV NAME(LOC) 2WR.2B; GLUCOSE,POINT OF CARE 132 MG/DL (70-110)
[2021-11-11 04:46] LABS: GLUCOMETER DEV NAME(LOC) 2WR.1C; GLUCOSE,POINT OF CARE 116 MG/DL (70-110)
[2021-11-11] MEDS: NYSTATIN 500,000 UNITS/5 ML SUSPENSION UDCUP PO SCH ×4 (05:38→19:22)
[2021-11-11] MEDS: LEVOTHYROXINE SODIUM 25 MCG TABLET PO SCH (05:38)
[2021-11-11 05:57] VITALS: BP 152/80
[2021-11-11 06:01] LABS: GLUCOMETER DEV NAME(LOC) 2WR.2B; GLUCOSE,POINT OF CARE 109 MG/DL (70-110)
[2021-11-11 08:01] VITALS: BP 153/77
[2021-11-11 08:34] LABS: BASOPHILS % (AUTO) 0.5 % (0.0-2.0); EOSINOPHILS % (AUTO) 1.8 % (1.0-6.0); HEMATOCRIT 31.3 % (41-53); HEMOGLOBIN 10.4 g/dL (13.5-17.5); LYMPHOCYTES # (AUTO) 0.7 K/uL (1.0-4.8); LYMPHOCYTES % (AUTO) 6.3 % (22.0-44.0); MEAN CORPUSCULAR HEMOGLOBIN 30.7 pg (26.0-34.0); MEAN CORPUSCULAR HGB CONC 33.3 G/dL (31.0-37.0); MEAN CORPUSCULAR VOLUME 92 fL (80-100); MONOCYTES # (AUTO) 0.9 K/uL (0.1-1.0); MONOCYTES % (AUTO) 8.3 % (2.0-9.0); NEUTROPHILS # (AUTO) 9.4 K/uL (1.8-7.7); NEUTROPHILS % (AUTO) 83.1 % (40.0-70.0); PLATELET COUNT (AUTO) 344 K/uL (150-450); RED CELL DISTRIBUTION WIDTH 15.6 % (11.5-14.5)
[2021-11-11] MEDS: OXYGEN THERAPY IH SCH ×2 (08:34→19:22)
[2021-11-11] MEDS: FAMOTIDINE 20 MG TABLET PO SCH (08:35)
[2021-11-11] MEDS: ATORVASTATIN CALCIUM 20 MG TABLET PO SCH (08:35)
[2021-11-11] MEDS: CALCIUM ACETATE 667 MG CAPSULE PO SCH ×3 (08:35→17:29)
[2021-11-11] MEDS: HEPARIN SODIUM,PORCINE 5,000 UNITS/ML VIAL SQ SCH ×2 (08:35→21:33)
[2021-11-11] MEDS: ETHYL ALCOHOL 62% ANTISEPTIC NASAL INHALANT 0.6 ML AMPUL NASAL SCH ×2 (08:35→21:33)
[2021-11-11] MEDS: AmLODIPine BESYLATE 5 MG TABLET PO SCH (08:36)
[2021-11-11] MEDS: CLOTRIMAZOLE 1% 15 GM CREAM TP SCH ×2 (08:36→21:43)
[2021-11-11] MEDS: ASPIRIN 81 MG CHEWABLE TABLET PO SCH (08:36)
[2021-11-11 08:40] LABS: CREATININE 11.05 mg/dL (0.60-1.30); POTASSIUM 4.9 mmol/L (3.5-5.1)
[2021-11-11] MEDS: DOCUSATE SODIUM 250 MG CAPSULE PO SCH ×2 (08:41→21:33)
[2021-11-11] MEDS: HYDROCODONE/ACETAMINOPHEN 5-325 MG TABLET PO PRN ×2 (09:21→19:29)
[2021-11-11] MEDS: SODIUM BICARBONATE 650 MG TABLET PO SCH (12:26)
[2021-11-11] MEDS: VITAMIN B COMP/VIT C/FOLIC ACID CAPSULE PO SCH (12:26)
[2021-11-11 13:16] LABS: GLUCOMETER DEV NAME(LOC) 2WR.2B; GLUCOSE,POINT OF CARE 104 MG/DL (70-110)
[2021-11-11] MEDS: ONDANSETRON HCL 4 MG TABLET PO PRN (13:28)
[2021-11-11 16:38] VITALS: BP 151/84
[2021-11-11] MEDS: GENTAMICIN SULFATE 0.3% OPHTHALMIC SOLUTION 5 ML TP SCH (16:39)
[2021-11-11] MEDS: INSULIN LISPRO 100 UNITS/ML SQ PRN (17:29)
[2021-11-11] MEDS: METHYL SALICYLATE/MENTHOL 85 GM CREAM TP PRN (17:30)
[2021-11-11 17:51] LABS: GLUCOMETER DEV NAME(LOC) 2WR.2B; GLUCOSE,POINT OF CARE 164 MG/DL (70-110)
[2021-11-11] MEDS: SENNA 187 MG TABLET PO SCH (21:33)
[2021-11-11 22:16] LABS: GLUCOMETER DEV NAME(LOC) 2WR.2B; GLUCOSE,POINT OF CARE 140 MG/DL (70-110)
[2021-11-12] MEDS: NYSTATIN 500,000 UNITS/5 ML SUSPENSION UDCUP PO SCH ×4 (01:52→18:51)
[2021-11-12 01:56] VITALS: BP 150/74
[2021-11-12] MEDS: LEVOTHYROXINE SODIUM 25 MCG TABLET PO SCH (06:00)
[2021-11-12 06:17] LABS: GLUCOMETER DEV NAME(LOC) 2WR.2B; GLUCOSE,POINT OF CARE 130 MG/DL (70-110)
[2021-11-12] MEDS: CALCIUM ACETATE 667 MG CAPSULE PO SCH ×3 (07:58→18:50)
[2021-11-12 08:00] VITALS: BP 160/86
[2021-11-12 09:00] VITALS: BP 152/82
[2021-11-12] MEDS: OXYGEN THERAPY IH SCH ×2 (09:23→20:00)
[2021-11-12] MEDS: ATORVASTATIN CALCIUM 20 MG TABLET PO SCH (09:24)
[2021-11-12] MEDS: ETHYL ALCOHOL 62% ANTISEPTIC NASAL INHALANT 0.6 ML AMPUL NASAL SCH ×2 (09:24→21:13)
[2021-11-12] MEDS: FAMOTIDINE 20 MG TABLET PO SCH (09:25)
[2021-11-12] MEDS: AmLODIPine BESYLATE 5 MG TABLET PO SCH (09:25)
[2021-11-12] MEDS: ASPIRIN 81 MG CHEWABLE TABLET PO SCH (09:25)
[2021-11-12] MEDS: HEPARIN SODIUM,PORCINE 5,000 UNITS/ML VIAL SQ SCH ×2 (09:25→21:14)
[2021-11-12] MEDS: DOCUSATE SODIUM 250 MG CAPSULE PO SCH ×2 (09:25→21:13)
[2021-11-12] MEDS: VITAMIN B COMP/VIT C/FOLIC ACID CAPSULE PO SCH (09:25)
[2021-11-12] MEDS: EPOETIN ALFA 10,000 UNITS/ML 2 ML VIAL SQ SCH (09:26)
[2021-11-12] MEDS: CLOTRIMAZOLE 1% 15 GM CREAM TP SCH ×2 (09:27→21:33)
[2021-11-12] MEDS: GABAPENTIN 100 MG CAPSULE PO SCH ×2 (10:23→21:13)
[2021-11-12 11:51] LABS: GLUCOMETER DEV NAME(LOC) 2WR.1C; GLUCOSE,POINT OF CARE 124 MG/DL (70-110)
[2021-11-12] MEDS: SODIUM BICARBONATE 650 MG TABLET PO SCH (12:23)
[2021-11-12] MEDS: DOCUSATE SODIUM 100 MG CAPSULE PO PRN (14:08)
[2021-11-12] MEDS: BISACODYL 10 MG RECTAL RECTAL SUPPOSITORY PR PRN (15:47)
[2021-11-12 16:08] VITALS: BP 155/88
[2021-11-12 17:26] LABS: GLUCOMETER DEV NAME(LOC) 2WR.2B; GLUCOSE,POINT OF CARE 107 MG/DL (70-110)
[2021-11-12] MEDS: GENTAMICIN SULFATE 0.3% OPHTHALMIC SOLUTION 5 ML TP SCH (18:41)
[2021-11-12 20:30] VITALS: BP 150/72
[2021-11-12] MEDS: SENNA 187 MG TABLET PO SCH (21:14)
[2021-11-12] MEDS: INSULIN LISPRO 100 UNITS/ML SQ PRN (21:29)
[2021-11-12 21:41] LABS: GLUCOMETER DEV NAME(LOC) 2WR.2B; GLUCOSE,POINT OF CARE 153 MG/DL (70-110)
[2021-11-13 04:03] VITALS: BP 139/81
[2021-11-13 05:27] LABS: GLUCOMETER DEV NAME(LOC) 2WR.1C; GLUCOSE,POINT OF CARE 177 MG/DL (70-110)
[2021-11-13] MEDS: LEVOTHYROXINE SODIUM 25 MCG TABLET PO SCH (06:01)
[2021-11-13] MEDS: NYSTATIN 500,000 UNITS/5 ML SUSPENSION UDCUP PO SCH ×2 (06:01)
[2021-11-13] MEDS: SitaGLIPtin PHOSPHATE 25 MG TABLET PO SCH (07:52)
[2021-11-13] MEDS: GABAPENTIN 100 MG CAPSULE PO SCH ×2 (07:52→20:47)
[2021-11-13] MEDS: CALCIUM ACETATE 667 MG CAPSULE PO SCH ×3 (07:52→17:36)
[2021-11-13] MEDS: DOCUSATE SODIUM 100 MG CAPSULE PO PRN ×2 (07:52→15:39)
[2021-11-13] MEDS: VITAMIN B COMP/VIT C/FOLIC ACID CAPSULE PO SCH (07:52)
[2021-11-13] MEDS: FAMOTIDINE 20 MG TABLET PO SCH (07:53)
[2021-11-13] MEDS: ATORVASTATIN CALCIUM 20 MG TABLET PO SCH (07:53)
[2021-11-13] MEDS: AmLODIPine BESYLATE 5 MG TABLET PO SCH (07:53)
[2021-11-13] MEDS: ASPIRIN 81 MG CHEWABLE TABLET PO SCH (07:53)
[2021-11-13] MEDS: HEPARIN SODIUM,PORCINE 5,000 UNITS/ML VIAL SQ SCH ×2 (07:53→20:47)
[2021-11-13] MEDS: ETHYL ALCOHOL 62% ANTISEPTIC NASAL INHALANT 0.6 ML AMPUL NASAL SCH ×2 (07:54→20:47)
[2021-11-13] MEDS: DOCUSATE SODIUM 250 MG CAPSULE PO SCH ×2 (07:55→20:47)
[2021-11-13] MEDS: INSULIN LISPRO 100 UNITS/ML SQ PRN ×2 (07:55→21:03)
[2021-11-13] MEDS: CLOTRIMAZOLE 1% 15 GM CREAM TP SCH ×2 (07:56→20:48)
[2021-11-13] MEDS: OXYGEN THERAPY IH SCH ×2 (07:56→20:46)
[2021-11-13 09:19] VITALS: BP 145/82
[2021-11-13 10:04] LABS: CALCIUM, TOTAL 7.9 mg/dL (8.8-10.5); CREATININE 10.49 mg/dL (0.60-1.30); PHOSPHORUS 4.8 mg/dL (2.5-4.9); POTASSIUM 4.4 mmol/L (3.5-5.1)
[2021-11-13 12:31] LABS: GLUCOMETER DEV NAME(LOC) 2WR.2B; GLUCOSE,POINT OF CARE 82 MG/DL (70-110)
[2021-11-13] MEDS: SODIUM BICARBONATE 650 MG TABLET PO SCH (13:09)
[2021-11-13] MEDS: BISACODYL 10 MG RECTAL RECTAL SUPPOSITORY PR PRN (15:52)
[2021-11-13 16:37] VITALS: BP 145/80
[2021-11-13] MEDS: GENTAMICIN SULFATE 0.3% OPHTHALMIC SOLUTION 5 ML TP SCH (19:03)
[2021-11-13 19:16] LABS: GLUCOMETER DEV NAME(LOC) 2WR.1C; GLUCOSE,POINT OF CARE 125 MG/DL (70-110)
[2021-11-13] MEDS: SENNA 187 MG TABLET PO SCH (20:47)
[2021-11-13 21:36] LABS: GLUCOMETER DEV NAME(LOC) 2WR.1C; GLUCOSE,POINT OF CARE 220 MG/DL (70-110)
[2021-11-14 04:19] VITALS: BP 145/73
[2021-11-14 05:56] LABS: GLUCOMETER DEV NAME(LOC) 2WR.2B; GLUCOSE,POINT OF CARE 151 MG/DL (70-110)
[2021-11-14] MEDS: LEVOTHYROXINE SODIUM 25 MCG TABLET PO SCH (06:12)
[2021-11-14] MEDS: CALCIUM ACETATE 667 MG CAPSULE PO SCH ×3 (07:30→17:28)
[2021-11-14] MEDS: OXYGEN THERAPY IH SCH ×2 (08:00→20:00)
[2021-11-14] MEDS: DOCUSATE SODIUM 100 MG CAPSULE PO PRN (08:17)
[2021-11-14] MEDS: GABAPENTIN 100 MG CAPSULE PO SCH ×2 (08:17→21:04)
[2021-11-14] MEDS: FAMOTIDINE 20 MG TABLET PO SCH (08:17)
[2021-11-14] MEDS: ATORVASTATIN CALCIUM 20 MG TABLET PO SCH (08:17)
[2021-11-14] MEDS: VITAMIN B COMP/VIT C/FOLIC ACID CAPSULE PO SCH (08:17)
[2021-11-14] MEDS: ASPIRIN 81 MG CHEWABLE TABLET PO SCH (08:17)
[2021-11-14] MEDS: AmLODIPine BESYLATE 5 MG TABLET PO SCH (08:17)
[2021-11-14] MEDS: SitaGLIPtin PHOSPHATE 25 MG TABLET PO SCH (08:17)
[2021-11-14] MEDS: HEPARIN SODIUM,PORCINE 5,000 UNITS/ML VIAL SQ SCH ×2 (08:18→21:04)
[2021-11-14] MEDS: EPOETIN ALFA 10,000 UNITS/ML 2 ML VIAL SQ SCH (08:19)
[2021-11-14] MEDS: INSULIN LISPRO 100 UNITS/ML SQ PRN ×2 (08:20→21:15)
[2021-11-14] MEDS: ETHYL ALCOHOL 62% ANTISEPTIC NASAL INHALANT 0.6 ML AMPUL NASAL SCH ×2 (08:42→21:03)
[2021-11-14] MEDS: CLOTRIMAZOLE 1% 15 GM CREAM TP SCH ×2 (08:42→21:05)
[2021-11-14] MEDS: DOCUSATE SODIUM 250 MG CAPSULE PO SCH ×2 (08:43→21:03)
[2021-11-14 09:00] VITALS: BP 149/74
[2021-11-14 12:06] LABS: GLUCOMETER DEV NAME(LOC) 2WR.2B; GLUCOSE,POINT OF CARE 94 MG/DL (70-110)
[2021-11-14] MEDS: SODIUM BICARBONATE 650 MG TABLET PO SCH (12:25)
[2021-11-14] MEDS: ONDANSETRON HCL 4 MG TABLET PO PRN (13:31)
[2021-11-14 15:00] VITALS: BP 142/75
[2021-11-14] MEDS: GENTAMICIN SULFATE 0.3% OPHTHALMIC SOLUTION 5 ML TP SCH (17:31)
[2021-11-14 17:42] LABS: GLUCOMETER DEV NAME(LOC) 2WR.2B; GLUCOSE,POINT OF CARE 116 MG/DL (70-110)
[2021-11-14 21:00] VITALS: BP 140/79
[2021-11-14] MEDS: SENNA 187 MG TABLET PO SCH (21:04)
[2021-11-14] MEDS: BISACODYL 10 MG RECTAL RECTAL SUPPOSITORY PR PRN (21:34)
[2021-11-14 22:36] LABS: GLUCOMETER DEV NAME(LOC) 2WR.1C; GLUCOSE,POINT OF CARE 184 MG/DL (70-110)
[2021-11-15 00:21] VITALS: BP 134/65
[2021-11-15] MEDS: LEVOTHYROXINE SODIUM 25 MCG TABLET PO SCH (06:16)
[2021-11-15 06:21] LABS: GLUCOMETER DEV NAME(LOC) 2WR.2B; GLUCOSE,POINT OF CARE 156 MG/DL (70-110)
[2021-11-15] MEDS: CALCIUM ACETATE 667 MG CAPSULE PO SCH ×3 (07:49→17:29)
[2021-11-15 08:09] VITALS: BP 136/68
[2021-11-15] MEDS ORDERED: LACTULOSE 20 GM/30 ML SOLUTION UDCUP PO ONE (08:15)
[2021-11-15] MEDS: OXYGEN THERAPY IH SCH ×2 (08:30→19:21)
[2021-11-15] MEDS: ASPIRIN 81 MG CHEWABLE TABLET PO SCH (08:31)
[2021-11-15] MEDS: ETHYL ALCOHOL 62% ANTISEPTIC NASAL INHALANT 0.6 ML AMPUL NASAL SCH ×2 (08:31→21:10)
[2021-11-15] MEDS: SitaGLIPtin PHOSPHATE 25 MG TABLET PO SCH (08:32)
[2021-11-15] MEDS: DOCUSATE SODIUM 250 MG CAPSULE PO SCH ×2 (08:32→21:10)
[2021-11-15] MEDS: VITAMIN B COMP/VIT C/FOLIC ACID CAPSULE PO SCH (08:32)
[2021-11-15] MEDS: ATORVASTATIN CALCIUM 20 MG TABLET PO SCH (08:32)
[2021-11-15] MEDS: AmLODIPine BESYLATE 5 MG TABLET PO SCH (08:33)
[2021-11-15] MEDS: HEPARIN SODIUM,PORCINE 5,000 UNITS/ML VIAL SQ SCH ×2 (08:33→21:11)
[2021-11-15] MEDS: GABAPENTIN 100 MG CAPSULE PO SCH ×2 (08:33→21:10)
[2021-11-15] MEDS: FAMOTIDINE 20 MG TABLET PO SCH (08:33)
[2021-11-15] MEDS: CLOTRIMAZOLE 1% 15 GM CREAM TP SCH ×2 (08:34→21:11)
[2021-11-15] MEDS: INSULIN LISPRO 100 UNITS/ML SQ PRN (11:43)
[2021-11-15 12:00] LABS: GLUCOMETER DEV NAME(LOC) 2WR.2B; GLUCOSE,POINT OF CARE 160 MG/DL (70-110)
[2021-11-15] MEDS: SODIUM BICARBONATE 650 MG TABLET PO SCH (12:26)
[2021-11-15 16:00] VITALS: BP 127/65
[2021-11-15] MEDS ORDERED: DEXTROSE 50%-WATER 25 GM/50 ML SYRINGE IVP PRN (17:15)
[2021-11-15] MEDS: GENTAMICIN SULFATE 0.3% OPHTHALMIC SOLUTION 5 ML TP SCH (17:30)
[2021-11-15 18:51] LABS: GLUCOMETER DEV NAME(LOC) 2WR.2B; GLUCOSE,POINT OF CARE 134 MG/DL (70-110)
[2021-11-15] MEDS: BISACODYL 10 MG RECTAL RECTAL SUPPOSITORY PR PRN (19:16)
[2021-11-15 20:30] VITALS: BP 130/64
[2021-11-15] MEDS: SENNA 187 MG TABLET PO SCH (21:11)
[2021-11-15 22:16] LABS: GLUCOMETER DEV NAME(LOC) 2WR.1C; GLUCOSE,POINT OF CARE 136 MG/DL (70-110)
[2021-11-16 00:03] VITALS: BP 119/77
[2021-11-16] MEDS: LEVOTHYROXINE SODIUM 25 MCG TABLET PO SCH (06:04)
[2021-11-16 06:37] LABS: GLUCOMETER DEV NAME(LOC) 2WR.1C; GLUCOSE,POINT OF CARE 162 MG/DL (70-110)
[2021-11-16] MEDS: HEPARIN SODIUM,PORCINE 5,000 UNITS/ML VIAL SQ SCH ×2 (07:24→20:30)
[2021-11-16] MEDS: ASPIRIN 81 MG CHEWABLE TABLET PO SCH (07:25)
[2021-11-16] MEDS: AmLODIPine BESYLATE 5 MG TABLET PO SCH (07:25)
[2021-11-16] MEDS: ATORVASTATIN CALCIUM 20 MG TABLET PO SCH (07:25)
[2021-11-16] MEDS: SitaGLIPtin PHOSPHATE 25 MG TABLET PO SCH (07:25)
[2021-11-16] MEDS: CALCIUM ACETATE 667 MG CAPSULE PO SCH ×3 (07:25→17:29)
[2021-11-16] MEDS: DOCUSATE SODIUM 100 MG CAPSULE PO PRN (07:25)
[2021-11-16] MEDS: FAMOTIDINE 20 MG TABLET PO SCH (07:25)
[2021-11-16] MEDS: VITAMIN B COMP/VIT C/FOLIC ACID CAPSULE PO SCH (07:25)
[2021-11-16] MEDS: GABAPENTIN 100 MG CAPSULE PO SCH ×2 (07:25→20:33)
[2021-11-16] MEDS: ETHYL ALCOHOL 62% ANTISEPTIC NASAL INHALANT 0.6 ML AMPUL NASAL SCH ×2 (07:26→20:30)
[2021-11-16] MEDS: CLOTRIMAZOLE 1% 15 GM CREAM TP SCH ×2 (07:26→20:34)
[2021-11-16] MEDS: INSULIN LISPRO 100 UNITS/ML SQ PRN ×2 (07:42→17:18)
[2021-11-16] MEDS: OXYGEN THERAPY IH SCH ×2 (07:43→20:00)
[2021-11-16 08:30] VITALS: BP 142/74
[2021-11-16] MEDS: DOCUSATE SODIUM 250 MG CAPSULE PO SCH ×2 (08:51→20:33)
[2021-11-16 09:23] LABS: BASOPHILS % (AUTO) 0.8 % (0.0-2.0); HEMATOCRIT 31.5 % (41-53); HEMOGLOBIN 10.6 g/dL (13.5-17.5); LYMPHOCYTES # (AUTO) 0.9 K/uL (1.0-4.8); LYMPHOCYTES % (AUTO) 9.3 % (22.0-44.0); MEAN CORPUSCULAR HEMOGLOBIN 30.7 pg (26.0-34.0); MEAN CORPUSCULAR HGB CONC 33.5 G/dL (31.0-37.0); MEAN CORPUSCULAR VOLUME 92 fL (80-100); MONOCYTES # (AUTO) 1.1 K/uL (0.1-1.0); MONOCYTES % (AUTO) 11.6 % (2.0-9.0); NEUTROPHILS # (AUTO) 6.8 K/uL (1.8-7.7); NEUTROPHILS % (AUTO) 74.3 % (40.0-70.0); PLATELET COUNT (AUTO) 393 K/uL (150-450); RED BLOOD CELL COUNT(AUTO) 3.44 MIL/uL (4.50-5.90); RED CELL DISTRIBUTION WIDTH 15.2 % (11.5-14.5)
[2021-11-16 09:26] LABS: CALCIUM, TOTAL 8.3 mg/dL (8.8-10.5); CREATININE 10.44 mg/dL (0.60-1.30); MAGNESIUM 3.4 mg/dL (1.80-2.40); PHOSPHORUS 4.2 mg/dL (2.5-4.9); POTASSIUM 3.9 mmol/L (3.5-5.1)
[2021-11-16 13:26] LABS: GLUCOMETER DEV NAME(LOC) 2WR.2B; GLUCOSE,POINT OF CARE 93 MG/DL (70-110)
[2021-11-16 16:40] VITALS: BP 143/75
[2021-11-16] MEDS: METHYL SALICYLATE/MENTHOL 85 GM CREAM TP PRN (17:18)
[2021-11-16] MEDS: GENTAMICIN SULFATE 0.3% OPHTHALMIC SOLUTION 5 ML TP SCH (17:29)
[2021-11-16 17:51] LABS: GLUCOMETER DEV NAME(LOC) 2WR.1C; GLUCOSE,POINT OF CARE 142 MG/DL (70-110)
[2021-11-16 20:30] VITALS: BP 135/64
[2021-11-16] MEDS: SENNA 187 MG TABLET PO SCH (20:33)
[2021-11-16] MEDS: ACETAMINOPHEN 325 MG TABLET PO PRN (20:33)
[2021-11-16 21:11] LABS: GLUCOMETER DEV NAME(LOC) 2WR.1C; GLUCOSE,POINT OF CARE 132 MG/DL (70-110)
[2021-11-17 01:00] VITALS: BP 137/70
[2021-11-17] MEDS: LEVOTHYROXINE SODIUM 25 MCG TABLET PO SCH (06:28)
[2021-11-17 06:31] LABS: GLUCOMETER DEV NAME(LOC) 2WR.2B; GLUCOSE,POINT OF CARE 164 MG/DL (70-110)
[2021-11-17] MEDS: OXYGEN THERAPY IH SCH ×2 (08:11→20:00)
[2021-11-17] MEDS: CALCIUM ACETATE 667 MG CAPSULE PO SCH ×3 (08:11→17:54)
[2021-11-17] MEDS ORDERED: LACTULOSE 20 GM/30 ML SOLUTION UDCUP PO PRN (08:45)
[2021-11-17] MEDS: SitaGLIPtin PHOSPHATE 25 MG TABLET PO SCH (08:49)
[2021-11-17] MEDS: GABAPENTIN 100 MG CAPSULE PO SCH ×2 (08:50→21:12)
[2021-11-17] MEDS: ATORVASTATIN CALCIUM 20 MG TABLET PO SCH (08:50)
[2021-11-17] MEDS: ASPIRIN 81 MG CHEWABLE TABLET PO SCH (08:50)
[2021-11-17] MEDS: FAMOTIDINE 20 MG TABLET PO SCH (08:50)
[2021-11-17] MEDS: VITAMIN B COMP/VIT C/FOLIC ACID CAPSULE PO SCH (08:50)
[2021-11-17] MEDS: DOCUSATE SODIUM 250 MG CAPSULE PO SCH ×2 (08:50→21:10)
[2021-11-17] MEDS: AmLODIPine BESYLATE 5 MG TABLET PO SCH (08:50)
[2021-11-17] MEDS: HEPARIN SODIUM,PORCINE 5,000 UNITS/ML VIAL SQ SCH ×2 (08:51→21:10)
[2021-11-17] MEDS: EPOETIN ALFA 10,000 UNITS/ML 2 ML VIAL SQ SCH (08:52)
[2021-11-17] MEDS: INSULIN LISPRO 100 UNITS/ML SQ PRN ×2 (08:52→21:11)
[2021-11-17] MEDS: ETHYL ALCOHOL 62% ANTISEPTIC NASAL INHALANT 0.6 ML AMPUL NASAL SCH ×2 (08:52→21:11)
[2021-11-17] MEDS: CLOTRIMAZOLE 1% 15 GM CREAM TP SCH ×2 (09:00→21:13)
[2021-11-17] MEDS ORDERED: SENN-187 PO (11:05)
[2021-11-17] MEDS ORDERED: ASPI81 PO (11:05)
[2021-11-17] MEDS ORDERED: METHYL SALICYLATE TP (11:05)
[2021-11-17] MEDS ORDERED: MENTHOL TP (11:05)
[2021-11-17] MEDS ORDERED: CLOT15CR29 TP (11:05)
[2021-11-17] MEDS ORDERED: SITA25 PO (11:05)
[2021-11-17] MEDS ORDERED: INSU100V SQ (11:05)
[2021-11-17] MEDS ORDERED: LEVO25TA9 PO (11:05)
[2021-11-17] MEDS ORDERED: AMLO-257 PO (11:05)
[2021-11-17] MEDS ORDERED: DOCU-119 PO (11:05)
[2021-11-17] MEDS ORDERED: GABA-1216 PO (11:05)
[2021-11-17] MEDS ORDERED: ATOR20TA65 PO (11:05)
[2021-11-17] MEDS ORDERED: B CO1CAP6 PO (11:05)
[2021-11-17] MEDS ORDERED: LACT30L PO (11:05)
[2021-11-17] MEDS ORDERED: FAMO20 PO (11:05)
[2021-11-17] MEDS ORDERED: GENTOS TP (11:05)
[2021-11-17] MEDS ORDERED: DOCU-350 PO (11:05)
[2021-11-17] MEDS ORDERED: ACET325T51 PO (11:05)
[2021-11-17] MEDS ORDERED: PHOSLOC PO (11:05)
[2021-11-17 12:00] VITALS: BP 131/75
[2021-11-17] MEDS: ONDANSETRON HCL 4 MG TABLET PO PRN (13:21)
[2021-11-17 14:26] LABS: GLUCOMETER DEV NAME(LOC) 2WR.1C; GLUCOSE,POINT OF CARE 85 MG/DL (70-110)
[2021-11-17 16:28] VITALS: BP 163/94
[2021-11-17] MEDS: GENTAMICIN SULFATE 0.3% OPHTHALMIC SOLUTION 5 ML TP SCH (17:54)
[2021-11-17 18:10] VITALS: BP 143/87
[2021-11-17 18:33] VITALS: BP 143/67
[2021-11-17] MEDS: METHYL SALICYLATE/MENTHOL 85 GM CREAM TP PRN (20:55)
[2021-11-17 20:56] LABS: GLUCOMETER DEV NAME(LOC) 2WR.1C; GLUCOSE,POINT OF CARE 125 MG/DL (70-110)
[2021-11-17] MEDS: SENNA 187 MG TABLET PO SCH (21:09)
[2021-11-17 21:41] LABS: GLUCOMETER DEV NAME(LOC) 2WR.1C; GLUCOSE,POINT OF CARE 196 MG/DL (70-110)
[2021-11-18] VITALS: BP 117/67
[2021-11-18] MEDS: LEVOTHYROXINE SODIUM 25 MCG TABLET PO SCH (05:38)
[2021-11-18 06:36] LABS: GLUCOMETER DEV NAME(LOC) 2WR.1C; GLUCOSE,POINT OF CARE 125 MG/DL (70-110)
[2021-11-18] MEDS: CLOTRIMAZOLE 1% 15 GM CREAM TP SCH ×2 (07:49→21:23)
[2021-11-18] MEDS: CALCIUM ACETATE 667 MG CAPSULE PO SCH ×3 (07:49→17:46)
[2021-11-18] MEDS: OXYGEN THERAPY IH SCH ×2 (07:49→20:00)
[2021-11-18] MEDS: ASPIRIN 81 MG CHEWABLE TABLET PO SCH (07:51)
[2021-11-18] MEDS: VITAMIN B COMP/VIT C/FOLIC ACID CAPSULE PO SCH (07:51)
[2021-11-18] MEDS: SitaGLIPtin PHOSPHATE 25 MG TABLET PO SCH (07:51)
[2021-11-18] MEDS: ETHYL ALCOHOL 62% ANTISEPTIC NASAL INHALANT 0.6 ML AMPUL NASAL SCH ×2 (07:51→21:20)
[2021-11-18] MEDS: GABAPENTIN 100 MG CAPSULE PO SCH ×2 (07:52→21:20)
[2021-11-18] MEDS: ATORVASTATIN CALCIUM 20 MG TABLET PO SCH (07:52)
[2021-11-18] MEDS: HEPARIN SODIUM,PORCINE 5,000 UNITS/ML VIAL SQ SCH ×2 (07:52→21:23)
[2021-11-18] MEDS: DOCUSATE SODIUM 100 MG CAPSULE PO PRN ×3 (07:52→21:20)
[2021-11-18] MEDS: AmLODIPine BESYLATE 5 MG TABLET PO SCH (07:52)
[2021-11-18] MEDS: FAMOTIDINE 20 MG TABLET PO SCH (07:52)
[2021-11-18] MEDS: DOCUSATE SODIUM 250 MG CAPSULE PO SCH ×2 (08:00→21:24)
[2021-11-18 08:10] VITALS: BP 129/75
[2021-11-18] MEDS: HYDROCODONE/ACETAMINOPHEN 5-325 MG TABLET PO PRN (10:10)
[2021-11-18 13:06] LABS: GLUCOMETER DEV NAME(LOC) 2WR.1C; GLUCOSE,POINT OF CARE 95 MG/DL (70-110)
[2021-11-18 15:00] VITALS: BP 126/68
[2021-11-18] MEDS: METHYL SALICYLATE/MENTHOL 85 GM CREAM TP PRN (16:37)
[2021-11-18] MEDS: GENTAMICIN SULFATE 0.3% OPHTHALMIC SOLUTION 5 ML TP SCH (16:37)
[2021-11-18 16:42] VITALS: BP 126/68
[2021-11-18] MEDS: ACETAMINOPHEN 325 MG TABLET PO PRN (16:42)
[2021-11-18 18:51] LABS: GLUCOMETER DEV NAME(LOC) 2WR.2B; GLUCOSE,POINT OF CARE 137 MG/DL (70-110)
[2021-11-18] MEDS: SENNA 187 MG TABLET PO SCH (21:20)
[2021-11-18] MEDS: INSULIN LISPRO 100 UNITS/ML SQ PRN (21:30)
[2021-11-18 22:41] LABS: GLUCOMETER DEV NAME(LOC) 2WR.2B; GLUCOSE,POINT OF CARE 155 MG/DL (70-110)
[2021-11-19 06:00] VITALS: BP 141/71
[2021-11-19] MEDS: LEVOTHYROXINE SODIUM 25 MCG TABLET PO SCH (06:00)
[2021-11-19 06:11] LABS: GLUCOMETER DEV NAME(LOC) 2WR.2B; GLUCOSE,POINT OF CARE 112 MG/DL (70-110)
[2021-11-19] MEDS: BISACODYL 10 MG RECTAL RECTAL SUPPOSITORY PR PRN (06:21)
[2021-11-19] MEDS: CALCIUM ACETATE 667 MG CAPSULE PO SCH (07:59)
[2021-11-19] MEDS: CLOTRIMAZOLE 1% 15 GM CREAM TP SCH (08:00)
[2021-11-19] MEDS: OXYGEN THERAPY IH SCH (08:00)
[2021-11-19] MEDS: AmLODIPine BESYLATE 5 MG TABLET PO SCH (08:01)
[2021-11-19] MEDS: HEPARIN SODIUM,PORCINE 5,000 UNITS/ML VIAL SQ SCH (08:01)
[2021-11-19] MEDS: DOCUSATE SODIUM 250 MG CAPSULE PO SCH (08:01)
[2021-11-19] MEDS: ASPIRIN 81 MG CHEWABLE TABLET PO SCH (08:01)
[2021-11-19] MEDS: SitaGLIPtin PHOSPHATE 25 MG TABLET PO SCH (08:01)
[2021-11-19] MEDS: VITAMIN B COMP/VIT C/FOLIC ACID CAPSULE PO SCH (08:01)
[2021-11-19] MEDS: ATORVASTATIN CALCIUM 20 MG TABLET PO SCH (08:01)
[2021-11-19] MEDS: GABAPENTIN 100 MG CAPSULE PO SCH (08:01)
[2021-11-19] MEDS: FAMOTIDINE 20 MG TABLET PO SCH (08:01)
[2021-11-19] MEDS: EPOETIN ALFA 10,000 UNITS/ML 2 ML VIAL SQ SCH (08:02)
[2021-11-19] MEDS: ETHYL ALCOHOL 62% ANTISEPTIC NASAL INHALANT 0.6 ML AMPUL NASAL SCH (08:04)
[2021-11-19 09:16] VITALS: BP 103/69
[2021-11-19] MEDS: HYDROCODONE/ACETAMINOPHEN 5-325 MG TABLET PO PRN (09:16)
== END 2021-11-19 12:00 | disposition home health service (06) | DRG 947 ==
LOC: 2WR 19:22
PROVIDERS: ADMIT Physical Medicine & Rehabilitation; ATTEND Physical Medicine & Rehabilitation
DX: R53.81 Other malaise (principal); N18.6 End stage renal disease; G93.41 Metabolic encephalopathy; E87.1 Hypo-osmolality and hyponatremia; I13.2 Hypertensive heart and chronic kidney disease with heart failure and with stage 5 chronic kidney disease, or end stage renal disease; N39.0 Urinary tract infection, site not specified; Z16.12 Extended spectrum beta lactamase (ESBL) resistance; N25.81 Secondary hyperparathyroidism of renal origin; E03.9 Hypothyroidism, unspecified; E11.22 Type 2 diabetes mellitus with diabetic chronic kidney disease; E11.51 Type 2 diabetes mellitus with diabetic peripheral angiopathy without gangrene; E11.65 Type 2 diabetes mellitus with hyperglycemia; E83.39 Other disorders of phosphorus metabolism; E87.5 Hyperkalemia; I25.10 Atherosclerotic heart disease of native coronary artery without angina pectoris; I50.9 Heart failure, unspecified; H54.8 Legal blindness, as defined in USA; D63.1 Anemia in chronic kidney disease; E78.5 Hyperlipidemia, unspecified; K21.9 Gastro-esophageal reflux disease without esophagitis; K59.00 Constipation, unspecified; E11.40 Type 2 diabetes mellitus with diabetic neuropathy, unspecified; Z89.512 Acquired absence of left leg below knee; Z78.9 Other specified health status; Z83.3 Family history of diabetes mellitus; Z99.2 Dependence on renal dialysis; Z68.23 Body mass index [BMI] 23.0-23.9, adult
CPT/HCPCS: 73503; 80048; 80053; 82962; 83735; 84100; 85025; 87081; 90935; 90945; 97110; 97162; 97530; 97535; 99366; J0885; J1644; J1956; J2060; J7050; Q0162

== ENCOUNTER 2022-01-21 14:42 | Inpatient (IN) | payer MEDICARE, OTHER ==
[~2022-01-21] VITALS: Ht 177.8 cm; Wt 70.6 kg
[~2022-01-21 14:42] MED LIST changes: +ACET325T51 PO; +ASPI81 PO; -ATOR10TA84 PO; +ATOR20TA65 PO; +ATOR20TA86 PO; -BUME1TAB6 PO; +DOCU-119 PO; -DOCU-270 PO; -DOCU-350 PO; +DOCU-385 PO; +DOCU250C99 PO; -EPOE10I SQ; -HEPA500018 SQ; +LACT10SO10 PO; -LEVO250P6 IV; +MENTHOL TP; +METHYL SALICYLATE TP; -NYST100033 PO; -OMEP20 PO; -POLY17PO47 PO; +SENN-187 PO; -SENN8.6T90 PO; -SEVE800T17 PO; -SODI650T33 PO
[2022-01-21] MEDS ORDERED: ONDANSETRON HCL 4 MG/2 ML VIAL IVP ONE ×2 (16:15→20:30)
[2022-01-21] MEDS ORDERED: HYDROmorphone 2 MG/ML VIAL IVP ONE ×2 (16:15→19:30)
[2022-01-21 16:32] LABS: COVID AG,FIA SOURCE NASOPHARYNGEAL
[2022-01-21 16:55] LABS: BASOPHILS % (AUTO) 0.6 % (0.0-2.0); EOSINOPHILS % (AUTO) 1.7 % (1.0-6.0); HEMATOCRIT 32.8 % (41-53); HEMOGLOBIN 10.8 g/dL (13.5-17.5); LYMPHOCYTES # (AUTO) 0.9 K/uL (1.0-4.8); LYMPHOCYTES % (AUTO) 6.3 % (22.0-44.0); MEAN CORPUSCULAR HEMOGLOBIN 30.1 pg (26.0-34.0); MEAN CORPUSCULAR VOLUME 91 fL (80-100); MONOCYTES # (AUTO) 0.9 K/uL (0.1-1.0); MONOCYTES % (AUTO) 6.7 % (2.0-9.0); NEUTROPHILS # (AUTO) 11.7 K/uL (1.8-7.7); NEUTROPHILS % (AUTO) 84.7 % (40.0-70.0); PLATELET COUNT (AUTO) 402 K/uL (150-450); RED BLOOD CELL COUNT(AUTO) 3.59 MIL/uL (4.50-5.90); RED CELL DISTRIBUTION WIDTH 15.7 % (11.5-14.5)
[2022-01-21 17:15] LABS: LACTIC ACID 0.6 mmol/L (0.4-2.0)
[2022-01-21 17:45] LABS: CALCIUM, TOTAL 8.7 mg/dL (8.8-10.5); CREATININE 8.78 mg/dL (0.60-1.30); POTASSIUM 3.4 mmol/L (3.5-5.1)
[2022-01-21 17:50] LABS: ALBUMIN 2.3 g/dL (3.4-5.0); BILIRUBIN,TOTAL 0.4 mg/dL (0.1-1.0); TOTAL PROTEIN, SERUM 7.7 g/dL (6.4-8.2)
[2022-01-21] MEDS ORDERED: PIPERACILLIN/TAZO 3.375 GM/D5W 50 ML IV ONE (18:45)
[2022-01-21] MEDS ORDERED: SODIUM CHLORIDE 0.9% 2,300 ML IV ONE (18:45)
[2022-01-21] MEDS ORDERED: LIDOCAINE 1% 10 ML VIAL SQ ONE (19:30)
[2022-01-21] MEDS ORDERED: ACETAMINOPHEN 325 MG TABLET PO PRN (19:45)
[2022-01-21] MEDS ORDERED: VANCOMYCIN HCL 1 GM/D5% WATER 200 ML IV ONE (20:00)
[2022-01-21] MEDS: ONDANSETRON HCL 4 MG/2 ML VIAL IVP PRN (20:22)
[2022-01-21] MEDS ORDERED: VANCOMYCIN HCL 1 GM/D5% WATER 200 ML IV PRN (20:30)
[2022-01-21 20:53] LABS: SPECIMENTYPE,BODY FLUID THORACENTESIS
[2022-01-21 21:57] LABS: APPEARANCE,UNSPUN,BODY FLUID CLOUDY (CLEAR)
[2022-01-21 21:58] LABS: COLOR,BODY FLUID BROWN (LT YELLOW); TOTAL VOLUME,BODY FLUID 1100 mL; WBC, BODY FLUID 126 /cu. mm.
[2022-01-21 22:06] LABS: APPEARANCE,SPUN,BODY FLUID CLEAR (CLEAR)
[2022-01-21 22:22] LABS: BASOPHILS,BODY FLUID 0 %; EOSINOPHILS,BF (ANAL) 0 %; LYMPHOCYTES,BODY FLUID 62 %; MONOCYTES,BODY FLUID 17 %; NEUTROPHILS,BODY FLUID 21 %
[2022-01-21] MEDS ORDERED: SODIUM CHLORIDE 0.9% 250 ML IV ONE (22:51)
[2022-01-21 23:12] VITALS: BP 148/83
[2022-01-22] MEDS ORDERED: METOCLOPRAMIDE HCL 5 MG/ML 2 ML VIAL IVP ONE (00:15)
[2022-01-22] MEDS: MELATONIN 5 MG TABLET PO PRN (00:35)
[2022-01-22] MEDS: HEPARIN SODIUM,PORCINE 5,000 UNITS/ML VIAL SQ SCH ×4 (00:35→23:10)
[2022-01-22 04:00] VITALS: BP 143/82
[2022-01-22] MEDS: CEFEPIME HCL 0.5 GM in DEXTROSE 5%-WATER 50 ML IV SCH (06:14)
[2022-01-22 06:56] LABS: BASOPHILS % (AUTO) 0.6 % (0.0-2.0); EOSINOPHILS % (AUTO) 1.8 % (1.0-6.0); HEMATOCRIT 31.6 % (41-53); HEMOGLOBIN 10.4 g/dL (13.5-17.5); LYMPHOCYTES # (AUTO) 0.8 K/uL (1.0-4.8); LYMPHOCYTES % (AUTO) 6.8 % (22.0-44.0); MEAN CORPUSCULAR HEMOGLOBIN 30.4 pg (26.0-34.0); MEAN CORPUSCULAR VOLUME 92 fL (80-100); MONOCYTES % (AUTO) 8.6 % (2.0-9.0); NEUTROPHILS # (AUTO) 9.6 K/uL (1.8-7.7); NEUTROPHILS % (AUTO) 82.2 % (40.0-70.0); PLATELET COUNT (AUTO) 347 K/uL (150-450); RED BLOOD CELL COUNT(AUTO) 3.43 MIL/uL (4.50-5.90); RED CELL DISTRIBUTION WIDTH 15.9 % (11.5-14.5)
[2022-01-22 07:07] LABS: CALCIUM, TOTAL 7.9 mg/dL (8.8-10.5); CREATININE 9.4 mg/dL (0.60-1.30); MAGNESIUM 2.5 mg/dL (1.80-2.40); POTASSIUM 3.7 mmol/L (3.5-5.1)
[2022-01-22 07:46] VITALS: BP 143/78
[2022-01-22] MEDS: HYDROmorphone 2 MG/ML VIAL IVP PRN ×3 (08:51→17:17)
[2022-01-22 11:15] VITALS: BP 140/79
[2022-01-22] MEDS ORDERED: VITAMIN B COMPLEX/FOLIC ACID 1 TABLET PO ONE (12:45)
[2022-01-22] MEDS ORDERED: AmLODIPine BESYLATE 5 MG TABLET PO SCH (12:45)
[2022-01-22] MEDS: INSULIN LISPRO 100 UNITS/ML SQ PRN (17:22)
[2022-01-22 17:31] LABS: GLUCOMETER DEV NAME(LOC) 5N.3; GLUCOSE,POINT OF CARE 103 MG/DL (70-110)
[2022-01-22 18:00] VITALS: BP 127/65
[2022-01-22] MEDS: NYSTATIN 500,000 UNITS/5 ML SUSPENSION UDCUP PO SCH ×2 (18:44→23:10)
[2022-01-22] MEDS: CALCIUM ACETATE 667 MG CAPSULE PO SCH (18:44)
[2022-01-22 19:18] VITALS: BP 138/67
[2022-01-22 20:06] LABS: GLUCOMETER DEV NAME(LOC) 5S.1B; GLUCOSE,POINT OF CARE 144 MG/DL (70-110)
[2022-01-22] MEDS: BUMETANIDE 0.25 MG/ML 4 ML VIAL IVP SCH (20:25)
[2022-01-22] MEDS: CARVEDILOL 6.25 MG TABLET PO SCH (20:25)
[2022-01-22] MEDS: DOCUSATE SODIUM 100 MG CAPSULE PO SCH (20:25)
[2022-01-22] MEDS: GABAPENTIN 100 MG CAPSULE PO SCH (20:26)
[2022-01-22 23:03] VITALS: BP 131/71
[2022-01-23] MEDS: HYDROmorphone 2 MG/ML VIAL IVP PRN ×3 (02:57→17:23)
[2022-01-23 03:43] VITALS: BP 143/71
[2022-01-23] MEDS: CEFEPIME HCL 0.5 GM in DEXTROSE 5%-WATER 50 ML IV SCH (05:17)
[2022-01-23] MEDS: LEVOTHYROXINE SODIUM 25 MCG TABLET PO SCH (05:32)
[2022-01-23] MEDS: NYSTATIN 500,000 UNITS/5 ML SUSPENSION UDCUP PO SCH ×4 (05:32→23:30)
[2022-01-23] MEDS: INSULIN LISPRO 100 UNITS/ML SQ PRN ×3 (05:35→22:09)
[2022-01-23 06:35] LABS: BASOPHILS % (AUTO) 0.5 % (0.0-2.0); HEMOGLOBIN 10.9 g/dL (13.5-17.5); LYMPHOCYTES # (AUTO) 0.8 K/uL (1.0-4.8); LYMPHOCYTES % (AUTO) 6.2 % (22.0-44.0); MEAN CORPUSCULAR HEMOGLOBIN 30.5 pg (26.0-34.0); MEAN CORPUSCULAR HGB CONC 33.2 G/dL (31.0-37.0); MEAN CORPUSCULAR VOLUME 92 fL (80-100); MONOCYTES # (AUTO) 0.9 K/uL (0.1-1.0); MONOCYTES % (AUTO) 6.9 % (2.0-9.0); NEUTROPHILS # (AUTO) 10.8 K/uL (1.8-7.7); NEUTROPHILS % (AUTO) 84.4 % (40.0-70.0); PLATELET COUNT (AUTO) 363 K/uL (150-450); RED BLOOD CELL COUNT(AUTO) 3.59 MIL/uL (4.50-5.90)
[2022-01-23 07:02] LABS: ALBUMIN 2.1 g/dL (3.4-5.0); BILIRUBIN,TOTAL 0.4 mg/dL (0.1-1.0); CALCIUM, TOTAL 8.1 mg/dL (8.8-10.5); CREATININE 9.29 mg/dL (0.60-1.30); MAGNESIUM 2.4 mg/dL (1.80-2.40); PHOSPHORUS 6.3 mg/dL (2.5-4.9); POTASSIUM 3.8 mmol/L (3.5-5.1); TOTAL PROTEIN, SERUM 7.5 g/dL (6.4-8.2); VANCOMYCIN,RANDOM 14.3 mcg/mL (25.0-50.0)
[2022-01-23 07:52] VITALS: BP 134/61
[2022-01-23] MEDS: CALCIUM ACETATE 667 MG CAPSULE PO SCH ×3 (08:05→17:23)
[2022-01-23] MEDS: ATORVASTATIN CALCIUM 20 MG TABLET PO SCH (08:05)
[2022-01-23] MEDS: DOCUSATE SODIUM 100 MG CAPSULE PO SCH ×2 (08:05→22:06)
[2022-01-23] MEDS: GABAPENTIN 100 MG CAPSULE PO SCH ×2 (08:05→22:06)
[2022-01-23] MEDS: CARVEDILOL 6.25 MG TABLET PO SCH ×2 (08:05→22:06)
[2022-01-23] MEDS: FAMOTIDINE 20 MG TABLET PO SCH (08:05)
[2022-01-23] MEDS: ASPIRIN 81 MG CHEWABLE TABLET PO SCH (08:05)
[2022-01-23] MEDS: HEPARIN SODIUM,PORCINE 5,000 UNITS/ML VIAL SQ SCH ×3 (08:06→23:30)
[2022-01-23] MEDS: BUMETANIDE 0.25 MG/ML 4 ML VIAL IVP SCH ×2 (08:06→22:06)
[2022-01-23] MEDS ORDERED: VANCOMYCIN HCL 1 GM/D5% WATER 200 ML IV ONE (09:00)
[2022-01-23 11:36] VITALS: BP 125/70
[2022-01-23] MEDS: VITAMIN B COMP/VIT C/FOLIC ACID CAPSULE PO SCH (11:43)
[2022-01-23 11:56] LABS: GLUCOMETER DEV NAME(LOC) 5S.1B; GLUCOSE,POINT OF CARE 126 MG/DL (70-110)
[2022-01-23 11:57] LABS: GLUCOMETER DEV NAME(LOC) 5S.1B; GLUCOSE,POINT OF CARE 207 MG/DL (70-110)
[2022-01-23 16:18] VITALS: BP 128/95
[2022-01-23 16:51] LABS: GLUCOMETER DEV NAME(LOC) 5N.3; GLUCOSE,POINT OF CARE 203 MG/DL (70-110)
[2022-01-23 18:55] VITALS: BP 121/76
[2022-01-23 20:00] VITALS: BP 136/69
[2022-01-23 20:06] LABS: GLUCOMETER DEV NAME(LOC) 5S.1B; GLUCOSE,POINT OF CARE 105 MG/DL (70-110)
[2022-01-23 21:16] LABS: GLUCOMETER DEV NAME(LOC) 5S.1B; GLUCOSE,POINT OF CARE 165 MG/DL (70-110)
[2022-01-24] VITALS (7 sets, daily range): BP systolic 112–145; BP diastolic 64–78
[2022-01-24] MEDS: HYDROmorphone 2 MG/ML VIAL IVP PRN ×4 (00:38→15:19)
[2022-01-24] MEDS: CEFEPIME HCL 0.5 GM in DEXTROSE 5%-WATER 50 ML IV SCH (05:37)
[2022-01-24] MEDS: NYSTATIN 500,000 UNITS/5 ML SUSPENSION UDCUP PO SCH ×4 (05:38→23:43)
[2022-01-24] MEDS: LEVOTHYROXINE SODIUM 25 MCG TABLET PO SCH (05:38)
[2022-01-24] MEDS: INSULIN LISPRO 100 UNITS/ML SQ PRN ×2 (05:53→20:05)
[2022-01-24 06:06] LABS: GLUCOMETER DEV NAME(LOC) 5S.1B; GLUCOSE,POINT OF CARE 162 MG/DL (70-110)
[2022-01-24 06:24] LABS: BASOPHILS % (AUTO) 0.5 % (0.0-2.0); EOSINOPHILS % (AUTO) 2.4 % (1.0-6.0); HEMATOCRIT 31.5 % (41-53); HEMOGLOBIN 10.4 g/dL (13.5-17.5); LYMPHOCYTES # (AUTO) 0.7 K/uL (1.0-4.8); LYMPHOCYTES % (AUTO) 6.2 % (22.0-44.0); MEAN CORPUSCULAR HEMOGLOBIN 30.3 pg (26.0-34.0); MEAN CORPUSCULAR VOLUME 92 fL (80-100); MONOCYTES # (AUTO) 1.1 K/uL (0.1-1.0); MONOCYTES % (AUTO) 9.5 % (2.0-9.0); NEUTROPHILS # (AUTO) 9.7 K/uL (1.8-7.7); NEUTROPHILS % (AUTO) 81.4 % (40.0-70.0); PLATELET COUNT (AUTO) 354 K/uL (150-450); RED BLOOD CELL COUNT(AUTO) 3.44 MIL/uL (4.50-5.90); RED CELL DISTRIBUTION WIDTH 16.2 % (11.5-14.5)
[2022-01-24 07:01] LABS: ALBUMIN 1.9 g/dL (3.4-5.0); BILIRUBIN,TOTAL 0.4 mg/dL (0.1-1.0); CALCIUM, TOTAL 8.2 mg/dL (8.8-10.5); CREATININE 9.05 mg/dL (0.60-1.30); POTASSIUM 3.9 mmol/L (3.5-5.1); TOTAL PROTEIN, SERUM 7.1 g/dL (6.4-8.2)
[2022-01-24] MEDS: CALCIUM ACETATE 667 MG CAPSULE PO SCH ×3 (08:47→17:21)
[2022-01-24] MEDS: DOCUSATE SODIUM 100 MG CAPSULE PO SCH ×2 (08:47→19:54)
[2022-01-24] MEDS: GABAPENTIN 100 MG CAPSULE PO SCH ×2 (08:47→20:01)
[2022-01-24] MEDS: HEPARIN SODIUM,PORCINE 5,000 UNITS/ML VIAL SQ SCH ×3 (08:48→23:43)
[2022-01-24] MEDS: BUMETANIDE 0.25 MG/ML 4 ML VIAL IVP SCH (08:48)
[2022-01-24] MEDS: ASPIRIN 81 MG CHEWABLE TABLET PO SCH (08:48)
[2022-01-24] MEDS: CARVEDILOL 6.25 MG TABLET PO SCH ×2 (08:55→19:54)
[2022-01-24] MEDS: FAMOTIDINE 20 MG TABLET PO SCH (08:55)
[2022-01-24] MEDS: ATORVASTATIN CALCIUM 20 MG TABLET PO SCH (08:55)
[2022-01-24] MEDS: VITAMIN B COMP/VIT C/FOLIC ACID CAPSULE PO SCH (08:56)
[2022-01-24 12:20] LABS: GLUCOMETER DEV NAME(LOC) 5N.3; GLUCOSE,POINT OF CARE 125 MG/DL (70-110)
[2022-01-24 18:16] LABS: GLUCOMETER DEV NAME(LOC) 5S.1B; GLUCOSE,POINT OF CARE 141 MG/DL (70-110)
[2022-01-24] MEDS: LACTULOSE 20 GM/30 ML SOLUTION UDCUP PO PRN (20:01)
[2022-01-24 20:56] LABS: GLUCOMETER DEV NAME(LOC) 5N.3; GLUCOSE,POINT OF CARE 223 MG/DL (70-110)
[2022-01-25 01:38] VITALS: BP 124/74
[2022-01-25] MEDS: CEFEPIME HCL 0.5 GM in DEXTROSE 5%-WATER 50 ML IV SCH (05:22)
[2022-01-25 05:34] VITALS: BP 122/72
[2022-01-25] MEDS: NYSTATIN 500,000 UNITS/5 ML SUSPENSION UDCUP PO SCH ×3 (05:43→18:26)
[2022-01-25] MEDS: LEVOTHYROXINE SODIUM 25 MCG TABLET PO SCH (05:43)
[2022-01-25] MEDS: INSULIN LISPRO 100 UNITS/ML SQ PRN ×2 (05:44→20:51)
[2022-01-25 06:58] LABS: BASOPHILS % (AUTO) 0.5 % (0.0-2.0); EOSINOPHILS % (AUTO) 1.9 % (1.0-6.0); HEMATOCRIT 30.7 % (41-53); HEMOGLOBIN 10.2 g/dL (13.5-17.5); LYMPHOCYTES # (AUTO) 0.9 K/uL (1.0-4.8); LYMPHOCYTES % (AUTO) 7.3 % (22.0-44.0); MEAN CORPUSCULAR HEMOGLOBIN 30.4 pg (26.0-34.0); MEAN CORPUSCULAR VOLUME 92 fL (80-100); MONOCYTES # (AUTO) 1.2 K/uL (0.1-1.0); MONOCYTES % (AUTO) 9.7 % (2.0-9.0); NEUTROPHILS % (AUTO) 80.6 % (40.0-70.0); PLATELET COUNT (AUTO) 369 K/uL (150-450); RED BLOOD CELL COUNT(AUTO) 3.33 MIL/uL (4.50-5.90); RED CELL DISTRIBUTION WIDTH 16.2 % (11.5-14.5)
[2022-01-25 07:33] LABS: ALBUMIN 1.8 g/dL (3.4-5.0); BILIRUBIN,TOTAL 0.4 mg/dL (0.1-1.0); CALCIUM, TOTAL 8.3 mg/dL (8.8-10.5); CREATININE 9.19 mg/dL (0.60-1.30); POTASSIUM 3.8 mmol/L (3.5-5.1)
[2022-01-25] MEDS: HEPARIN SODIUM,PORCINE 5,000 UNITS/ML VIAL SQ SCH ×2 (08:00→16:00)
[2022-01-25] MEDS: CALCIUM ACETATE 667 MG CAPSULE PO SCH ×3 (08:00→18:26)
[2022-01-25 09:10] VITALS: BP 131/74
[2022-01-25] MEDS: VITAMIN B COMP/VIT C/FOLIC ACID CAPSULE PO SCH (09:31)
[2022-01-25] MEDS: FAMOTIDINE 20 MG TABLET PO SCH (09:32)
[2022-01-25] MEDS: DOCUSATE SODIUM 100 MG CAPSULE PO SCH ×2 (09:32→20:49)
[2022-01-25] MEDS: ACETAMINOPHEN 325 MG TABLET PO PRN (09:32)
[2022-01-25] MEDS: ATORVASTATIN CALCIUM 20 MG TABLET PO SCH (09:32)
[2022-01-25] MEDS: GABAPENTIN 100 MG CAPSULE PO SCH ×2 (09:32→20:49)
[2022-01-25 13:19] VITALS: BP 126/75
[2022-01-25 13:32] LABS: GLUCOMETER DEV NAME(LOC) 5N.3; GLUCOSE,POINT OF CARE 218 MG/DL (70-110)
[2022-01-25 13:32] LABS: GLUCOMETER DEV NAME(LOC) 5N.3; GLUCOSE,POINT OF CARE 127 MG/DL (70-110)
[2022-01-25] MEDS: CARVEDILOL 6.25 MG TABLET PO SCH ×2 (13:42→20:49)
[2022-01-25] MEDS: ASPIRIN 81 MG CHEWABLE TABLET PO SCH (18:26)
[2022-01-25 20:00] VITALS: BP 127/56
[2022-01-25] MEDS: ETHYL ALCOHOL 62% ANTISEPTIC NASAL SANITIZER 0.6 ML AMPUL NASAL SCH (20:49)
[2022-01-25 21:15] VITALS: BP 130/62
[2022-01-26] VITALS (8 sets, daily range): BP systolic 105–139; BP diastolic 57–75
[2022-01-26] MEDS: HEPARIN SODIUM,PORCINE 5,000 UNITS/ML VIAL SQ SCH ×4 (00:16→23:43)
[2022-01-26] MEDS: NYSTATIN 500,000 UNITS/5 ML SUSPENSION UDCUP PO SCH ×5 (00:16→23:43)
[2022-01-26] MEDS: HYDROmorphone 2 MG/ML VIAL IVP PRN ×2 (03:54→15:45)
[2022-01-26] MEDS: CEFEPIME HCL 0.5 GM in DEXTROSE 5%-WATER 50 ML IV SCH (05:30)
[2022-01-26] MEDS: LEVOTHYROXINE SODIUM 25 MCG TABLET PO SCH (05:30)
[2022-01-26 05:46] LABS: GLUCOMETER DEV NAME(LOC) 5N.3; GLUCOSE,POINT OF CARE 86 MG/DL (70-110)
[2022-01-26 05:46] LABS: GLUCOMETER DEV NAME(LOC) 5N.3; GLUCOSE,POINT OF CARE 195 MG/DL (70-110)
[2022-01-26] MEDS: INSULIN LISPRO 100 UNITS/ML SQ PRN ×4 (05:49→20:34)
[2022-01-26 06:43] LABS: BASOPHILS % (AUTO) 0.4 % (0.0-2.0); EOSINOPHILS % (AUTO) 1.8 % (1.0-6.0); HEMATOCRIT 33.6 % (41-53); LYMPHOCYTES # (AUTO) 0.5 K/uL (1.0-4.8); LYMPHOCYTES % (AUTO) 3.6 % (22.0-44.0); MEAN CORPUSCULAR HEMOGLOBIN 30.3 pg (26.0-34.0); MEAN CORPUSCULAR HGB CONC 32.8 G/dL (31.0-37.0); MEAN CORPUSCULAR VOLUME 92 fL (80-100); MONOCYTES # (AUTO) 0.9 K/uL (0.1-1.0); MONOCYTES % (AUTO) 7.2 % (2.0-9.0); NEUTROPHILS # (AUTO) 10.9 K/uL (1.8-7.7); PLATELET COUNT (AUTO) 402 K/uL (150-450); RED BLOOD CELL COUNT(AUTO) 3.65 MIL/uL (4.50-5.90); RED CELL DISTRIBUTION WIDTH 16.3 % (11.5-14.5)
[2022-01-26 06:58] LABS: ALBUMIN 1.9 g/dL (3.4-5.0); BILIRUBIN,TOTAL 0.5 mg/dL (0.1-1.0); CALCIUM, TOTAL 8.5 mg/dL (8.8-10.5); CREATININE 9.87 mg/dL (0.60-1.30); PHOSPHORUS 6.1 mg/dL (2.5-4.9); POTASSIUM 4.3 mmol/L (3.5-5.1); TOTAL PROTEIN, SERUM 7.5 g/dL (6.4-8.2); VANCOMYCIN,RANDOM 22.6 mcg/mL (25.0-50.0)
[2022-01-26] MEDS: ASPIRIN 81 MG CHEWABLE TABLET PO SCH (08:55)
[2022-01-26] MEDS: DOCUSATE SODIUM 100 MG CAPSULE PO SCH ×2 (08:55→20:34)
[2022-01-26] MEDS: VITAMIN B COMP/VIT C/FOLIC ACID CAPSULE PO SCH (08:55)
[2022-01-26] MEDS: GABAPENTIN 100 MG CAPSULE PO SCH ×2 (08:55→20:34)
[2022-01-26] MEDS: FAMOTIDINE 20 MG TABLET PO SCH (08:56)
[2022-01-26] MEDS: ATORVASTATIN CALCIUM 20 MG TABLET PO SCH (08:56)
[2022-01-26] MEDS: CARVEDILOL 6.25 MG TABLET PO SCH ×2 (08:56→20:33)
[2022-01-26] MEDS: CALCIUM ACETATE 667 MG CAPSULE PO SCH ×3 (08:56→16:57)
[2022-01-26] MEDS: ETHYL ALCOHOL 62% ANTISEPTIC NASAL SANITIZER 0.6 ML AMPUL NASAL SCH ×2 (09:51→20:33)
[2022-01-26] MEDS ORDERED: GENTAMICIN SULFATE 0.1% 15 GM CREAM TP SCH (21:30)
[2022-01-27] VITALS (8 sets, daily range): BP systolic 116–138; BP diastolic 59–74
[2022-01-27 01:01] LABS: GLUCOMETER DEV NAME(LOC) 5S.2B; GLUCOSE,POINT OF CARE 246 MG/DL (70-110)
[2022-01-27 01:01] LABS: GLUCOMETER DEV NAME(LOC) 5S.2B; GLUCOSE,POINT OF CARE 229 MG/DL (70-110)
[2022-01-27] MEDS: CEFEPIME HCL 0.5 GM in DEXTROSE 5%-WATER 50 ML IV SCH (05:46)
[2022-01-27] MEDS: NYSTATIN 500,000 UNITS/5 ML SUSPENSION UDCUP PO SCH ×4 (05:46→23:40)
[2022-01-27] MEDS: LEVOTHYROXINE SODIUM 25 MCG TABLET PO SCH (05:46)
[2022-01-27] MEDS: INSULIN LISPRO 100 UNITS/ML SQ PRN ×3 (05:48→21:57)
[2022-01-27 06:25] LABS: BASOPHILS % (AUTO) 0.6 % (0.0-2.0); EOSINOPHILS % (AUTO) 2.9 % (1.0-6.0); HEMATOCRIT 34.2 % (41-53); HEMOGLOBIN 10.9 g/dL (13.5-17.5); MEAN CORPUSCULAR HEMOGLOBIN 29.7 pg (26.0-34.0); MEAN CORPUSCULAR HGB CONC 31.9 G/dL (31.0-37.0); MEAN CORPUSCULAR VOLUME 93 fL (80-100); MONOCYTES # (AUTO) 1.2 K/uL (0.1-1.0); MONOCYTES % (AUTO) 9.5 % (2.0-9.0); NEUTROPHILS # (AUTO) 9.5 K/uL (1.8-7.7); PLATELET COUNT (AUTO) 433 K/uL (150-450); RED BLOOD CELL COUNT(AUTO) 3.67 MIL/uL (4.50-5.90); RED CELL DISTRIBUTION WIDTH 16.7 % (11.5-14.5)
[2022-01-27 06:42] LABS: ALBUMIN 1.8 g/dL (3.4-5.0); BILIRUBIN,TOTAL 0.4 mg/dL (0.1-1.0); CALCIUM, TOTAL 8.7 mg/dL (8.8-10.5); CREATININE 9.97 mg/dL (0.60-1.30); TOTAL PROTEIN, SERUM 7.5 g/dL (6.4-8.2)
[2022-01-27] MEDS: HEPARIN SODIUM,PORCINE 5,000 UNITS/ML VIAL SQ SCH ×3 (08:14→23:40)
[2022-01-27] MEDS: GABAPENTIN 100 MG CAPSULE PO SCH ×2 (08:14→21:04)
[2022-01-27] MEDS: FAMOTIDINE 20 MG TABLET PO SCH (08:14)
[2022-01-27] MEDS: CALCIUM ACETATE 667 MG CAPSULE PO SCH ×3 (08:14→17:11)
[2022-01-27] MEDS: ATORVASTATIN CALCIUM 20 MG TABLET PO SCH (08:15)
[2022-01-27] MEDS: CARVEDILOL 6.25 MG TABLET PO SCH ×2 (08:15→21:04)
[2022-01-27] MEDS: VITAMIN B COMP/VIT C/FOLIC ACID CAPSULE PO SCH (08:15)
[2022-01-27] MEDS: DOCUSATE SODIUM 100 MG CAPSULE PO SCH ×2 (08:15→21:04)
[2022-01-27] MEDS: ASPIRIN 81 MG CHEWABLE TABLET PO SCH (08:15)
[2022-01-27] MEDS: ETHYL ALCOHOL 62% ANTISEPTIC NASAL SANITIZER 0.6 ML AMPUL NASAL SCH ×2 (08:22→21:04)
[2022-01-27 20:41] LABS: GLUCOMETER DEV NAME(LOC) 5S.2B; GLUCOSE,POINT OF CARE 89 MG/DL (70-110)
[2022-01-27 20:41] LABS: GLUCOMETER DEV NAME(LOC) 5S.2B; GLUCOSE,POINT OF CARE 210 MG/DL (70-110)
[2022-01-27 20:41] LABS: GLUCOMETER DEV NAME(LOC) 5S.2B; GLUCOSE,POINT OF CARE 153 MG/DL (70-110)
[2022-01-27 21:36] LABS: GLUCOMETER DEV NAME(LOC) 5N.3; GLUCOSE,POINT OF CARE 156 MG/DL (70-110)
[2022-01-27 21:36] LABS: GLUCOMETER DEV NAME(LOC) 5N.3; GLUCOSE,POINT OF CARE 176 MG/DL (70-110)
[2022-01-27] MEDS: ACETAMINOPHEN 325 MG TABLET PO PRN (23:41)
[2022-01-28 04:42] VITALS: BP 126/66
[2022-01-28] MEDS ORDERED: VANCOMYCIN 1GM/WATER(PEG/NADA) 200 ML IV ONE (05:00)
[2022-01-28 06:01] LABS: GLUCOMETER DEV NAME(LOC) 5S.2B; GLUCOSE,POINT OF CARE 209 MG/DL (70-110)
[2022-01-28] MEDS: NYSTATIN 500,000 UNITS/5 ML SUSPENSION UDCUP PO SCH ×3 (06:17→17:36)
[2022-01-28] MEDS: LEVOTHYROXINE SODIUM 25 MCG TABLET PO SCH (06:17)
[2022-01-28] MEDS: INSULIN LISPRO 100 UNITS/ML SQ PRN ×3 (06:18→21:07)
[2022-01-28] MEDS: CEFEPIME HCL 0.5 GM in DEXTROSE 5%-WATER 50 ML IV SCH (06:49)
[2022-01-28 07:00] LABS: BASOPHILS % (AUTO) 0.5 % (0.0-2.0); EOSINOPHILS % (AUTO) 3.4 % (1.0-6.0); HEMATOCRIT 31.6 % (41-53); HEMOGLOBIN 10.4 g/dL (13.5-17.5); LYMPHOCYTES # (AUTO) 1.3 K/uL (1.0-4.8); LYMPHOCYTES % (AUTO) 9.6 % (22.0-44.0); MEAN CORPUSCULAR HEMOGLOBIN 30.5 pg (26.0-34.0); MEAN CORPUSCULAR HGB CONC 32.8 G/dL (31.0-37.0); MEAN CORPUSCULAR VOLUME 93 fL (80-100); MONOCYTES # (AUTO) 1.3 K/uL (0.1-1.0); MONOCYTES % (AUTO) 10.2 % (2.0-9.0); NEUTROPHILS # (AUTO) 9.9 K/uL (1.8-7.7); NEUTROPHILS % (AUTO) 76.3 % (40.0-70.0); PLATELET COUNT (AUTO) 406 K/uL (150-450); RED CELL DISTRIBUTION WIDTH 16.6 % (11.5-14.5)
[2022-01-28 07:25] LABS: ALBUMIN 1.6 g/dL (3.4-5.0); BILIRUBIN,TOTAL 0.4 mg/dL (0.1-1.0); CALCIUM, TOTAL 8.1 mg/dL (8.8-10.5); CREATININE 9.99 mg/dL (0.60-1.30); POTASSIUM 3.7 mmol/L (3.5-5.1)
[2022-01-28 07:44] VITALS: BP 127/65
[2022-01-28] MEDS: GABAPENTIN 100 MG CAPSULE PO SCH ×2 (08:16→21:06)
[2022-01-28] MEDS: CARVEDILOL 6.25 MG TABLET PO SCH ×2 (08:16→21:05)
[2022-01-28] MEDS: DOCUSATE SODIUM 100 MG CAPSULE PO SCH ×2 (08:16→21:06)
[2022-01-28] MEDS: FAMOTIDINE 20 MG TABLET PO SCH (08:16)
[2022-01-28] MEDS: ETHYL ALCOHOL 62% ANTISEPTIC NASAL SANITIZER 0.6 ML AMPUL NASAL SCH ×2 (08:17→21:01)
[2022-01-28] MEDS: ATORVASTATIN CALCIUM 20 MG TABLET PO SCH (08:17)
[2022-01-28] MEDS: CALCIUM ACETATE 667 MG CAPSULE PO SCH ×3 (08:17→17:36)
[2022-01-28] MEDS: HEPARIN SODIUM,PORCINE 5,000 UNITS/ML VIAL SQ SCH (08:17)
[2022-01-28] MEDS: ASPIRIN 81 MG CHEWABLE TABLET PO SCH (08:17)
[2022-01-28] MEDS: VITAMIN B COMP/VIT C/FOLIC ACID CAPSULE PO SCH (08:17)
[2022-01-28 11:26] LABS: GLUCOMETER DEV NAME(LOC) 5S.2B; GLUCOSE,POINT OF CARE 225 MG/DL (70-110)
[2022-01-28 11:39] VITALS: BP 139/72
[2022-01-28] MEDS: LACTULOSE 20 GM/30 ML SOLUTION UDCUP PO PRN (15:00)
[2022-01-28 16:07] VITALS: BP 133/68
[2022-01-28 17:51] LABS: GLUCOMETER DEV NAME(LOC) 5N.3; GLUCOSE,POINT OF CARE 132 MG/DL (70-110)
[2022-01-28 19:15] VITALS: BP 127/61
[2022-01-28 20:16] LABS: GLUCOMETER DEV NAME(LOC) 5S.2B; GLUCOSE,POINT OF CARE 228 MG/DL (70-110)
[2022-01-28 20:29] VITALS: BP 124/63
[2022-01-28 22:26] LABS: GLUCOMETER DEV NAME(LOC) 5S.2B; GLUCOSE,POINT OF CARE 222 MG/DL (70-110)
[2022-01-29 00:07] VITALS: BP 120/64
[2022-01-29] MEDS: NYSTATIN 500,000 UNITS/5 ML SUSPENSION UDCUP PO SCH ×4 (00:47→18:00)
[2022-01-29 04:10] VITALS: BP 117/65
[2022-01-29] MEDS: LEVOTHYROXINE SODIUM 25 MCG TABLET PO SCH (06:07)
[2022-01-29] MEDS: CEFEPIME HCL 0.5 GM in DEXTROSE 5%-WATER 50 ML IV SCH (06:07)
[2022-01-29] MEDS: INSULIN LISPRO 100 UNITS/ML SQ PRN (06:07)
[2022-01-29 06:43] LABS: BASOPHILS % (AUTO) 0.8 % (0.0-2.0); EOSINOPHILS % (AUTO) 2.8 % (1.0-6.0); HEMOGLOBIN 10.2 g/dL (13.5-17.5); LYMPHOCYTES % (AUTO) 6.6 % (22.0-44.0); MEAN CORPUSCULAR HEMOGLOBIN 30.5 pg (26.0-34.0); MEAN CORPUSCULAR HGB CONC 32.9 G/dL (31.0-37.0); MEAN CORPUSCULAR VOLUME 93 fL (80-100); MONOCYTES # (AUTO) 1.4 K/uL (0.1-1.0); MONOCYTES % (AUTO) 9.7 % (2.0-9.0); NEUTROPHILS # (AUTO) 11.9 K/uL (1.8-7.7); NEUTROPHILS % (AUTO) 80.1 % (40.0-70.0); PLATELET COUNT (AUTO) 407 K/uL (150-450); RED BLOOD CELL COUNT(AUTO) 3.35 MIL/uL (4.50-5.90); RED CELL DISTRIBUTION WIDTH 16.6 % (11.5-14.5)
[2022-01-29 07:02] LABS: ALBUMIN 1.5 g/dL (3.4-5.0); BILIRUBIN,TOTAL 0.4 mg/dL (0.1-1.0); CALCIUM, TOTAL 8.5 mg/dL (8.8-10.5); CREATININE 9.6 mg/dL (0.60-1.30); POTASSIUM 3.7 mmol/L (3.5-5.1)
[2022-01-29 07:11] LABS: GLUCOMETER DEV NAME(LOC) 5S.2B; GLUCOSE,POINT OF CARE 237 MG/DL (70-110)
[2022-01-29 07:23] VITALS: BP 123/65
[2022-01-29] MEDS: CALCIUM ACETATE 667 MG CAPSULE PO SCH ×3 (08:00→18:00)
[2022-01-29] MEDS: VITAMIN B COMP/VIT C/FOLIC ACID CAPSULE PO SCH (08:53)
[2022-01-29] MEDS: FAMOTIDINE 20 MG TABLET PO SCH (08:53)
[2022-01-29] MEDS: ASPIRIN 81 MG CHEWABLE TABLET PO SCH (08:53)
[2022-01-29] MEDS: ATORVASTATIN CALCIUM 20 MG TABLET PO SCH (08:53)
[2022-01-29] MEDS: GABAPENTIN 100 MG CAPSULE PO SCH ×2 (08:54→21:00)
[2022-01-29] MEDS: DOCUSATE SODIUM 100 MG CAPSULE PO SCH ×2 (08:54→21:00)
[2022-01-29] MEDS: CARVEDILOL 6.25 MG TABLET PO SCH ×2 (09:00→21:00)
[2022-01-29] MEDS: ETHYL ALCOHOL 62% ANTISEPTIC NASAL SANITIZER 0.6 ML AMPUL NASAL SCH ×2 (09:28→23:35)
[2022-01-29] MEDS ORDERED: DOXYCYCLINE HYCLATE 100 MG/VIAL IPL ONE ×3 (10:30→15:35)
[2022-01-29] MEDS ORDERED: BUPIVACAINE/EPI/PF 0.5% 30 ML VIAL ONE (11:23)
[2022-01-29] MEDS ORDERED: SODIUM CHLORIDE 0.9% 1,000 ML ONE ×2 (11:24→13:54)
[2022-01-29] MEDS ORDERED: SODIUM CHLORIDE 0.9% 100 ML ONE (11:24)
[2022-01-29 12:01] LABS: GLUCOMETER DEV NAME(LOC) 5N.3; GLUCOSE,POINT OF CARE 92 MG/DL (70-110)
[2022-01-29 12:06] VITALS: BP 108/57
[2022-01-29] MEDS: ALBUMIN HUMAN 25%-25GM/100ML 100 ML IV SCH ×2 (14:00→23:36)
[2022-01-29 15:03] LABS: PROTHROMBIN TIME 11.1 SEC (9.4-11.6)
[2022-01-29] MEDS ORDERED: SODIUM CHLORIDE IRRIG ONE (15:36)
[2022-01-29 15:45] LABS: ABG BASE EXCESS -2.8 mmol/L (-2.0-3.0); ABG CARBOXYHEMOGLOBIN 1.2 % (0.0-1.5); ABG HCO3 22.5 mmol/L (22.0-26.0); ABG METHEMOGLOBIN 0.3 % (0.0-1.5); ABG OXYGEN CONTENT 17.6 mL/dL (15.0-23.0); ABG OXYGEN SATURATION 97.9 % (95.0-98.0); ABG OXYHEMOGLOBIN 96.4 % (94.0-100.0); ABG PCO2 37 mmHg (35-45); ABG PH 7.397 (7.35-7.450); ABG TOTAL HEMOGLOBIN 12.9 G/dL (12.0-18.0); PO2, ARTERIAL BG 108.4 mmHg (79.0-87.0); SOURCE, BLOOD GAS ARTERIAL; TEMPERATURE, FAHRENHEIT, BG 97.4 FAHREN (96.0-98.6)
[2022-01-29 15:47] LABS: SITE, BLOOD GAS RT BRACHIAL
[2022-01-29] MEDS ORDERED: BUPIVACAINE/EPI/PF 0.5% 30 ML VIAL ID ONE (15:47)
[2022-01-29 15:48] LABS: O2 DEVICE,BLOOD GAS NC (ROOM AIR)
[2022-01-29] MEDS ORDERED: HYDROCODONE/ACETAMINOPHEN 10-325 MG TABLET PO PRN (16:45)
[2022-01-29 17:08] VITALS: BP 125/66
[2022-01-29] MEDS ORDERED: SUGAMMADEX SODIUM 200 MG/2 ML VIAL IVP ONE (17:57)
[2022-01-29] MEDS ORDERED: EPINEPHrine 2 MG in DEXTROSE 5%-WATER 248 ML IV PRN (18:45)
[2022-01-29 18:48] LABS: ABG BASE EXCESS -23.5 mmol/L (-2.0-3.0); ABG CARBOXYHEMOGLOBIN 0.1 % (0.0-1.5); ABG METHEMOGLOBIN 0.1 % (0.0-1.5); ABG OXYGEN CONTENT 1.6 mL/dL (15.0-23.0); ABG OXYHEMOGLOBIN 45.2 % (94.0-100.0); ABG PCO2 26 mmHg (35-45); SOURCE, BLOOD GAS ARTERIAL; TEMPERATURE, FAHRENHEIT, BG 98.6 FAHREN (96.0-98.6)
[2022-01-29 18:59] LABS: ABG PH 7.051 (7.35-7.450)
[2022-01-29 19:00] LABS: ABG HCO3 7.3 mmol/L (22.0-26.0); ABG OXYGEN SATURATION 45.3 % (95.0-98.0); ABG TOTAL HEMOGLOBIN 2.3 G/dL (12.0-18.0); O2 DEVICE,BLOOD GAS VENTILATOR (ROOM AIR); PO2, ARTERIAL BG 36.7 mmHg (79.0-87.0); SITE, BLOOD GAS RT RADIAL
[2022-01-29 20:00] VITALS: BP 175/62
[2022-01-29] MEDS ORDERED: DOPamine 400MG/D5W[STANDARD] 250 ML IV PRN (20:00)
[2022-01-29 20:01] LABS: ABG BASE EXCESS -6.5 mmol/L (-2.0-3.0); ABG CARBOXYHEMOGLOBIN 0.7 % (0.0-1.5); ABG HCO3 19.6 mmol/L (22.0-26.0); ABG METHEMOGLOBIN 0.3 % (0.0-1.5); ABG OXYGEN CONTENT 17.4 mL/dL (15.0-23.0); ABG OXYGEN SATURATION 99.1 % (95.0-98.0); ABG OXYHEMOGLOBIN 98.1 % (94.0-100.0); ABG PCO2 39 mmHg (35-45); ABG TOTAL HEMOGLOBIN 12.3 G/dL (12.0-18.0); PO2, ARTERIAL BG 198.2 mmHg (79.0-87.0); SITE, BLOOD GAS ARTERIAL LINE; SOURCE, BLOOD GAS ARTERIAL; TEMPERATURE, FAHRENHEIT, BG 98.6 FAHREN (96.0-98.6)
[2022-01-29 20:02] LABS: PEEP,BG 5 cm H2O; PRESSURE SUPPORT, BG 18 cm H2O; SPONTANEOUS VT, BG 595 ml; VENT MODE, BG SPONTANEOUS (ROOM AIR)
[2022-01-29 20:28] LABS: BASOPHILS % (AUTO) 0.3 % (0.0-2.0); EOSINOPHILS % (AUTO) 0.8 % (1.0-6.0); HEMATOCRIT 35.9 % (41-53); HEMOGLOBIN 11.6 g/dL (13.5-17.5); LYMPHOCYTES # (AUTO) 1.3 K/uL (1.0-4.8); LYMPHOCYTES % (AUTO) 3.9 % (22.0-44.0); MEAN CORPUSCULAR HEMOGLOBIN 29.9 pg (26.0-34.0); MEAN CORPUSCULAR HGB CONC 32.2 G/dL (31.0-37.0); MEAN CORPUSCULAR VOLUME 93 fL (80-100); MONOCYTES # (AUTO) 1.2 K/uL (0.1-1.0); MONOCYTES % (AUTO) 3.5 % (2.0-9.0); NEUTROPHILS # (AUTO) 30.5 K/uL (1.8-7.7); PLATELET COUNT (AUTO) 483 K/uL (150-450); RED BLOOD CELL COUNT(AUTO) 3.86 MIL/uL (4.50-5.90); RED CELL DISTRIBUTION WIDTH 16.7 % (11.5-14.5)
[2022-01-29 20:29] LABS: NEUTROPHILS % (AUTO) 91.5 % (40.0-70.0)
[2022-01-29 20:38] LABS: CALCIUM, TOTAL 8.5 mg/dL (8.8-10.5); CREATININE 9.54 mg/dL (0.60-1.30); POTASSIUM 4.4 mmol/L (3.5-5.1)
[2022-01-29 20:43] LABS: MAGNESIUM 2.6 mg/dL (1.80-2.40); PHOSPHORUS 7.1 mg/dL (2.5-4.9)
[2022-01-29 20:54] LABS: SPECIMENTYPE,BODY FLUID PLEURAL
[2022-01-29] MEDS: PROPOFOL 1000 MG/ISO-OSM 100 ML IV PRN (21:31)
[2022-01-29] MEDS: NOREPINEPHRINE 4 MG/D5%-WATER 250 ML IV PRN (21:32)
[2022-01-29 22:13] LABS: APPEARANCE,SPUN,BODY FLUID CLEAR (CLEAR); APPEARANCE,UNSPUN,BODY FLUID CLOUDY (CLEAR); COLOR,BODY FLUID DARK YELLOW (LT YELLOW); TOTAL VOLUME,BODY FLUID 50 mL; WBC, BODY FLUID 2597.5 /cu. mm.
[2022-01-29 22:14] LABS: BASOPHILS,BODY FLUID 0 %; BODY FLUID RBC 1192.5 /cu. mm.; EOSINOPHILS,BF (ANAL) 0 %; LYMPHOCYTES,BODY FLUID 11 %; MONOCYTES,BODY FLUID 22 %; NEUTROPHILS,BODY FLUID 67 %
[2022-01-29] MEDS ORDERED: DEXTROSE 5% IV PRN ×2 (22:45→22:59)
[2022-01-29] MEDS ORDERED: EPINEPHRINE IV PRN ×2 (22:45→22:59)
[2022-01-29] MEDS ORDERED: WATER IV PRN ×2 (22:45→22:59)
[2022-01-29 23:31] LABS: GLUCOSE,POINT OF CARE 279 MG/DL (70-110)
[2022-01-30] VITALS (7 sets, daily range): BP systolic 95–137; BP diastolic 49–72
[2022-01-30 02:15] LABS: CALCIUM, TOTAL 8.1 mg/dL (8.8-10.5); CREATININE 9.62 mg/dL (0.60-1.30); MAGNESIUM 2.7 mg/dL (1.80-2.40); PHOSPHORUS 7.6 mg/dL (2.5-4.9)
[2022-01-30 02:15] LABS: ABG BASE EXCESS -9.3 mmol/L (-2.0-3.0); ABG CARBOXYHEMOGLOBIN 0.7 % (0.0-1.5); ABG HCO3 17.3 mmol/L (22.0-26.0); ABG METHEMOGLOBIN 0.3 % (0.0-1.5); ABG OXYGEN SATURATION 97.3 % (95.0-98.0); ABG OXYHEMOGLOBIN 96.3 % (94.0-100.0); ABG PCO2 35 mmHg (35-45); ABG PH 7.308 (7.35-7.450); ABG TOTAL HEMOGLOBIN 11.7 G/dL (12.0-18.0); O2 DEVICE,BLOOD GAS VENTILATOR (ROOM AIR); SITE, BLOOD GAS ARTERIAL LINE; SOURCE, BLOOD GAS ARTERIAL; VENT MODE, BG SIMV (ROOM AIR)
[2022-01-30 02:16] LABS: PEEP,BG 5 cm H2O; PRESSURE SUPPORT, BG 16 cm H2O; VT, ABG 450 ml
[2022-01-30] MEDS: INSULIN LISPRO 100 UNITS/ML SQ PRN ×3 (02:22→06:29)
[2022-01-30] MEDS: ALBUMIN HUMAN 25%-25GM/100ML 100 ML IV SCH ×4 (02:23→20:23)
[2022-01-30] MEDS: PROPOFOL 1000 MG/ISO-OSM 100 ML IV PRN ×2 (02:46→08:54)
[2022-01-30 02:59] LABS: INR 1.2 (0.9-1.1); PROTHROMBIN TIME 12.4 SEC (9.4-11.6)
[2022-01-30 03:07] LABS: LACTIC ACID 3.3 mmol/L (0.4-2.0)
[2022-01-30] MEDS ORDERED: SODIUM CHLORIDE 0.9% 1,000 ML IV SCH (03:15)
[2022-01-30] MEDS ORDERED: SODIUM CHLORIDE 0.9% 250 ML IV ONE (03:15)
[2022-01-30 03:26] LABS: GLUCOSE,POINT OF CARE 371 MG/DL (70-110)
[2022-01-30] MEDS: NYSTATIN 500,000 UNITS/5 ML SUSPENSION UDCUP PO SCH ×4 (06:00→17:16)
[2022-01-30] MEDS ORDERED: PROPOFOL 1% 20 ML VIAL IVP ONE (06:21)
[2022-01-30] MEDS ORDERED: EPHEDrine SULFATE 50 MG/ML VIAL IM ONE (06:21)
[2022-01-30] MEDS ORDERED: LIDOCAINE/PF 2% 5 ML VIAL IM ONE (06:21)
[2022-01-30] MEDS ORDERED: ATROPINE SULFATE 0.4 MG/ML VIAL IM ONE (06:21)
[2022-01-30] MEDS ORDERED: 0.9% SODIUM CHLORIDE 10 ML VIAL IVP ONE (06:21)
[2022-01-30] MEDS ORDERED: EPINEPHrine 1:10,000 [1 MG/10 ML] SYRINGE IVP ONE (06:21)
[2022-01-30] MEDS ORDERED: ONDANSETRON HCL 4 MG/2 ML VIAL IVP ONE (06:21)
[2022-01-30] MEDS ORDERED: GLYCOPYRROLATE 0.2 MG/ML VIAL IM ONE (06:21)
[2022-01-30] MEDS ORDERED: MIDAZOLAM HCL 2 MG/2 ML VIAL IVP ONE (06:21)
[2022-01-30] MEDS ORDERED: FentaNYL CITRATE PF 100 MCG/2 ML VIAL IVP ONE (06:21)
[2022-01-30] MEDS ORDERED: ROCURONIUM BROMIDE 10 MG/ML 5 ML VIAL IVP ONE (06:21)
[2022-01-30] MEDS: LEVOTHYROXINE SODIUM 25 MCG TABLET PO SCH (06:30)
[2022-01-30 06:42] LABS: GLUCOSE,POINT OF CARE 298 MG/DL (70-110)
[2022-01-30] MEDS: CALCIUM ACETATE 667 MG CAPSULE PO SCH ×3 (08:00→17:30)
[2022-01-30] MEDS: ETHYL ALCOHOL 62% ANTISEPTIC NASAL SANITIZER 0.6 ML AMPUL NASAL SCH ×2 (08:27→20:23)
[2022-01-30] MEDS: CEFEPIME HCL 0.5 GM in DEXTROSE 5%-WATER 50 ML IV SCH (08:27)
[2022-01-30 08:34] LABS: CALCIUM, TOTAL 7.5 mg/dL (8.8-10.5); CREATININE 9.72 mg/dL (0.60-1.30); MAGNESIUM 2.5 mg/dL (1.80-2.40); PHOSPHORUS 6.8 mg/dL (2.5-4.9); POTASSIUM 3.8 mmol/L (3.5-5.1)
[2022-01-30] MEDS: CARVEDILOL 6.25 MG TABLET PO SCH ×2 (08:35→20:24)
[2022-01-30] MEDS: VITAMIN B COMP/VIT C/FOLIC ACID CAPSULE PO SCH (09:00)
[2022-01-30] MEDS: FAMOTIDINE 20 MG TABLET PO SCH (09:00)
[2022-01-30] MEDS: ASPIRIN 81 MG CHEWABLE TABLET PO SCH (09:00)
[2022-01-30] MEDS: DOCUSATE SODIUM 100 MG CAPSULE PO SCH ×2 (09:00→20:24)
[2022-01-30] MEDS: GABAPENTIN 100 MG CAPSULE PO SCH ×2 (09:00→20:25)
[2022-01-30 09:35] LABS: ABG BASE EXCESS -7.8 mmol/L (-2.0-3.0); ABG CARBOXYHEMOGLOBIN 0.4 % (0.0-1.5); ABG HCO3 18.4 mmol/L (22.0-26.0); ABG METHEMOGLOBIN 0.3 % (0.0-1.5); ABG OXYGEN CONTENT 13.7 mL/dL (15.0-23.0); ABG OXYGEN SATURATION 98.2 % (95.0-98.0); ABG OXYHEMOGLOBIN 97.5 % (94.0-100.0); ABG PCO2 39 mmHg (35-45); ABG PH 7.299 (7.35-7.450); ABG TOTAL HEMOGLOBIN 9.8 G/dL (12.0-18.0); PO2, ARTERIAL BG 118.1 mmHg (79.0-87.0); SOURCE, BLOOD GAS ARTERIAL; TEMPERATURE, FAHRENHEIT, BG 92.1 FAHREN (96.0-98.6)
[2022-01-30 09:36] LABS: ABG A-A DIFF O2 125.9 mmHg (10-20.0); O2 DEVICE,BLOOD GAS VENTILATOR (ROOM AIR); SITE, BLOOD GAS ALINE
[2022-01-30 09:37] LABS: PEEP,BG 5 cm H2O; PRESSURE SUPPORT, BG 16 cm H2O; VENT MODE, BG SIMV (ROOM AIR); VT, ABG 450 ml
[2022-01-30 11:40] LABS: BASOPHILS % (AUTO) 0.1 % (0.0-2.0); EOSINOPHILS % (AUTO) 0.1 % (1.0-6.0); HEMATOCRIT 25.5 % (41-53); HEMOGLOBIN 8.4 g/dL (13.5-17.5); LYMPHOCYTES # (AUTO) 0.8 K/uL (1.0-4.8); LYMPHOCYTES % (AUTO) 3.9 % (22.0-44.0); MEAN CORPUSCULAR HEMOGLOBIN 30.3 pg (26.0-34.0); MEAN CORPUSCULAR HGB CONC 32.9 G/dL (31.0-37.0); MEAN CORPUSCULAR VOLUME 92 fL (80-100); MONOCYTES # (AUTO) 1.1 K/uL (0.1-1.0); MONOCYTES % (AUTO) 5.3 % (2.0-9.0); NEUTROPHILS # (AUTO) 19.2 K/uL (1.8-7.7); PLATELET COUNT (AUTO) 271 K/uL (150-450); RED BLOOD CELL COUNT(AUTO) 2.77 MIL/uL (4.50-5.90); RED CELL DISTRIBUTION WIDTH 16.3 % (11.5-14.5)
[2022-01-30 11:44] LABS: NEUTROPHILS % (AUTO) 90.6 % (40.0-70.0)
[2022-01-30 11:51] LABS: CALCIUM, TOTAL 7.2 mg/dL (8.8-10.5); CREATININE 9.41 mg/dL (0.60-1.30); MAGNESIUM 2.7 mg/dL (1.80-2.40); PHOSPHORUS 6.8 mg/dL (2.5-4.9); POTASSIUM 4.3 mmol/L (3.5-5.1)
[2022-01-30 13:00] LABS: ABG BASE EXCESS -6.5 mmol/L (-2.0-3.0); ABG CARBOXYHEMOGLOBIN 0.6 % (0.0-1.5); ABG HCO3 19.3 mmol/L (22.0-26.0); ABG METHEMOGLOBIN 0.3 % (0.0-1.5); ABG OXYGEN CONTENT 13.7 mL/dL (15.0-23.0); ABG OXYGEN SATURATION 98.8 % (95.0-98.0); ABG OXYHEMOGLOBIN 97.9 % (94.0-100.0); ABG PCO2 43 mmHg (35-45); ABG PH 7.289 (7.35-7.450); ABG TOTAL HEMOGLOBIN 9.7 G/dL (12.0-18.0); PO2, ARTERIAL BG 154.2 mmHg (79.0-87.0); SOURCE, BLOOD GAS ARTERIAL; TEMPERATURE, FAHRENHEIT, BG 93.9 FAHREN (96.0-98.6)
[2022-01-30 13:02] LABS: ABG A-A DIFF O2 84.5 mmHg (10-20.0); O2 DEVICE,BLOOD GAS VENTILATOR (ROOM AIR); SITE, BLOOD GAS ALINE; VT, ABG 400 ml
[2022-01-30 13:03] LABS: PEEP,BG 5 cm H2O
[2022-01-30 14:47] LABS: APPEARANCE,URINE TURBID (CLEAR); BILIRUBIN,URINE NEGATIVE (NEGATIVE); GLUCOSE, URINE (UA) 300-500 mg/dL (NEGATIVE); KETONES,URINE NEGATIVE (NEGATIVE); LEUKOCYTE ESTERASE ,URINE LARGE (NEGATIVE); NITRATE,URINE NEGATIVE (NEGATIVE); OCCULT BLOOD,URINE SMALL (NEGATIVE); PROTEIN,URINE 100-200,SEE CONFIRM mg/dL (NEGATIVE); SPECIFIC GRAVITIY, URINE 1.013 (1.003-1.030); UROBILINOGEN,URINE <=1.0 mg/dL (<=1.0)
[2022-01-30] MEDS: DOXYCYCLINE HYCLATE 100 MG in DEXTROSE 5%-WATER 100 ML IV SCH (15:08)
[2022-01-30 15:11] LABS: BACTERIA,URINE Few /HPF (None Seen); SQUAMOUS EPITHELIAL CELL,UR Rare /LPF (None Seen); WBC,URINE Full Field /HPF (0-5)
[2022-01-30 15:12] LABS: SULFOSALICYLIC ACID,URINE 4+ (Negative)
[2022-01-30 15:18] LABS: ABG CARBOXYHEMOGLOBIN 0.4 % (0.0-1.5); ABG METHEMOGLOBIN 0.3 % (0.0-1.5); SOURCE, BLOOD GAS ARTERIAL; TEMPERATURE, FAHRENHEIT, BG 93.9 FAHREN (96.0-98.6)
[2022-01-30 15:22] LABS: ABG BASE EXCESS -6.1 mmol/L (-2.0-3.0); ABG HCO3 19.6 mmol/L (22.0-26.0); ABG OXYGEN CONTENT 14.8 mL/dL (15.0-23.0); ABG OXYGEN SATURATION 98.7 % (95.0-98.0); ABG PCO2 41 mmHg (35-45); ABG TOTAL HEMOGLOBIN 10.5 G/dL (12.0-18.0); PO2, ARTERIAL BG 139.7 mmHg (79.0-87.0)
[2022-01-30 15:25] LABS: ABG A-A DIFF O2 101.1 mmHg (10-20.0); O2 DEVICE,BLOOD GAS VENTILATOR (ROOM AIR); PEEP,BG 5 cm H2O; SITE, BLOOD GAS ALINE; VT, ABG 400 ml
[2022-01-30] MEDS: PIPERACILLIN SODIUM/TAZOBACTAM 2.25 GM in DEXTROSE 5%-WATER 50 ML IV SCH (17:15)
[2022-01-30] MEDS: FentaNYL CIT 1000MCG/0.9% NACL 100 ML IV PRN (17:15)
[2022-01-30] MEDS: EPINEPHrine 4 MG in DEXTROSE 5%-WATER 246 ML IV PRN (17:42)
[2022-01-30 18:17] LABS: HEMATOCRIT 25.4 % (41-53); HEMOGLOBIN 8.4 g/dL (13.5-17.5)
[2022-01-30 18:26] LABS: GLUCOSE,POINT OF CARE 164 MG/DL (70-110)
[2022-01-30 19:26] LABS: GLUCOMETER DEV NAME(LOC) AHU.; GLUCOSE,POINT OF CARE 157 MG/DL (70-110)
[2022-01-30] MEDS: ATORVASTATIN CALCIUM 20 MG TABLET PO SCH (20:25)
[2022-01-30 20:31] LABS: ABG BASE EXCESS -5.8 mmol/L (-2.0-3.0); ABG CARBOXYHEMOGLOBIN 0.7 % (0.0-1.5); ABG HCO3 19.8 mmol/L (22.0-26.0); ABG METHEMOGLOBIN 0.3 % (0.0-1.5); ABG OXYGEN CONTENT 13.3 mL/dL (15.0-23.0); ABG OXYGEN SATURATION 98.6 % (95.0-98.0); ABG OXYHEMOGLOBIN 97.6 % (94.0-100.0); ABG PCO2 47 mmHg (35-45); ABG PH 7.271 (7.35-7.450); ABG TOTAL HEMOGLOBIN 9.4 G/dL (12.0-18.0); PO2, ARTERIAL BG 155.2 mmHg (79.0-87.0); SOURCE, BLOOD GAS ARTERIAL; TEMPERATURE, FAHRENHEIT, BG 96.6 FAHREN (96.0-98.6)
[2022-01-30 20:32] LABS: O2 DEVICE,BLOOD GAS VENTILATOR (ROOM AIR); PEEP,BG 5 cm H2O; SITE, BLOOD GAS ARTERIAL LINE; VT, ABG 400 ml
[2022-01-31] VITALS (8 sets, daily range): BP systolic 84–137; BP diastolic 32–77
[2022-01-31] MEDS: PIPERACILLIN SODIUM/TAZOBACTAM 2.25 GM in DEXTROSE 5%-WATER 50 ML IV SCH ×3 (00:45→17:09)
[2022-01-31] MEDS ORDERED: SODIUM CHLORIDE 0.9% 250 ML IV ONE ×2 (01:02→11:58)
[2022-01-31 01:07] LABS: GLUCOSE,POINT OF CARE 116 MG/DL (70-110)
[2022-01-31] MEDS: ALBUMIN HUMAN 25%-25GM/100ML 100 ML IV SCH ×2 (02:06→08:20)
[2022-01-31] MEDS: DOXYCYCLINE HYCLATE 100 MG in DEXTROSE 5%-WATER 100 ML IV SCH ×2 (03:30→14:10)
[2022-01-31] MEDS: FentaNYL CIT 1000MCG/0.9% NACL 100 ML IV PRN ×2 (03:40→22:04)
[2022-01-31] MEDS: PROPOFOL 1000 MG/ISO-OSM 100 ML IV PRN ×2 (03:47→14:44)
[2022-01-31] MEDS: NYSTATIN 500,000 UNITS/5 ML SUSPENSION UDCUP PO SCH ×5 (06:00→22:02)
[2022-01-31] MEDS: LEVOTHYROXINE SODIUM 25 MCG TABLET PO SCH (06:02)
[2022-01-31 06:08] LABS: BASOPHILS % (AUTO) 0.4 % (0.0-2.0); EOSINOPHILS % (AUTO) 1.6 % (1.0-6.0); HEMATOCRIT 24.5 % (41-53); HEMOGLOBIN 8.1 g/dL (13.5-17.5); LYMPHOCYTES % (AUTO) 5.7 % (22.0-44.0); MEAN CORPUSCULAR HEMOGLOBIN 30.7 pg (26.0-34.0); MEAN CORPUSCULAR HGB CONC 32.9 G/dL (31.0-37.0); MEAN CORPUSCULAR VOLUME 93 fL (80-100); MONOCYTES # (AUTO) 1.1 K/uL (0.1-1.0); MONOCYTES % (AUTO) 6.5 % (2.0-9.0); PLATELET COUNT (AUTO) 243 K/uL (150-450); RED BLOOD CELL COUNT(AUTO) 2.62 MIL/uL (4.50-5.90); RED CELL DISTRIBUTION WIDTH 16.7 % (11.5-14.5)
[2022-01-31 06:10] LABS: NEUTROPHILS % (AUTO) 85.8 % (40.0-70.0)
[2022-01-31 06:25] LABS: CALCIUM, TOTAL 7.6 mg/dL (8.8-10.5); CREATININE 9.46 mg/dL (0.60-1.30); POTASSIUM 4.7 mmol/L (3.5-5.1); VANCOMYCIN,RANDOM 24.6 mcg/mL (25.0-50.0)
[2022-01-31] MEDS: CALCIUM ACETATE 667 MG CAPSULE PO SCH ×3 (08:00→17:09)
[2022-01-31] MEDS: ETHYL ALCOHOL 62% ANTISEPTIC NASAL SANITIZER 0.6 ML AMPUL NASAL SCH ×2 (08:21→20:05)
[2022-01-31] MEDS: ASPIRIN 81 MG CHEWABLE TABLET PO SCH (08:21)
[2022-01-31] MEDS: GABAPENTIN 100 MG CAPSULE PO SCH ×2 (08:22→20:05)
[2022-01-31] MEDS: VITAMIN B COMP/VIT C/FOLIC ACID CAPSULE PO SCH (08:22)
[2022-01-31] MEDS: FAMOTIDINE 20 MG TABLET PO SCH (08:22)
[2022-01-31] MEDS: CARVEDILOL 6.25 MG TABLET PO SCH ×2 (08:22→20:06)
[2022-01-31] MEDS: DOCUSATE SODIUM 100 MG CAPSULE PO SCH ×2 (08:22→20:05)
[2022-01-31 10:06] LABS: GLUCOSE,POINT OF CARE 98 MG/DL (70-110)
[2022-01-31 14:32] LABS: ABG BASE EXCESS -7.6 mmol/L (-2.0-3.0); ABG CARBOXYHEMOGLOBIN 0.8 % (0.0-1.5); ABG HCO3 18.5 mmol/L (22.0-26.0); ABG METHEMOGLOBIN 0.3 % (0.0-1.5); ABG OXYGEN CONTENT 12.3 mL/dL (15.0-23.0); ABG OXYGEN SATURATION 98.6 % (95.0-98.0); ABG OXYHEMOGLOBIN 97.5 % (94.0-100.0); ABG PCO2 47 mmHg (35-45); ABG TOTAL HEMOGLOBIN 8.7 G/dL (12.0-18.0); PO2, ARTERIAL BG 154.7 mmHg (79.0-87.0); SOURCE, BLOOD GAS ARTERIAL; TEMPERATURE, FAHRENHEIT, BG 97.9 FAHREN (96.0-98.6)
[2022-01-31 14:36] LABS: O2 DEVICE,BLOOD GAS VENT (ROOM AIR); SITE, BLOOD GAS ARTERIAL LINE; VENT MODE, BG CPAP (ROOM AIR)
[2022-01-31 14:37] LABS: CPAP, BG 5 cm H2O; PRESSURE SUPPORT, BG 8 cm H2O; SPONTANEOUS VT, BG 585 ml
[2022-01-31] MEDS: EPINEPHrine 4 MG in DEXTROSE 5%-WATER 246 ML IV PRN (17:11)
[2022-01-31] MEDS: ATORVASTATIN CALCIUM 20 MG TABLET PO SCH (20:05)
[2022-02-01] VITALS (9 sets, daily range): BP systolic 94–146; BP diastolic 37–72
[2022-02-01] MEDS: INSULIN LISPRO 100 UNITS/ML SQ PRN ×2 (00:30→05:58)
[2022-02-01 00:36] LABS: GLUCOSE,POINT OF CARE 180 MG/DL (70-110)
[2022-02-01] MEDS: EPINEPHrine 4 MG in DEXTROSE 5%-WATER 246 ML IV PRN (02:44)
[2022-02-01] MEDS: PIPERACILLIN SODIUM/TAZOBACTAM 2.25 GM in DEXTROSE 5%-WATER 50 ML IV SCH ×3 (02:58→17:27)
[2022-02-01] MEDS: DOXYCYCLINE HYCLATE 100 MG in DEXTROSE 5%-WATER 100 ML IV SCH ×2 (02:59→16:29)
[2022-02-01] MEDS: NYSTATIN 500,000 UNITS/5 ML SUSPENSION UDCUP PO SCH ×3 (05:56→18:51)
[2022-02-01] MEDS: LEVOTHYROXINE SODIUM 25 MCG TABLET PO SCH (05:57)
[2022-02-01 06:15] LABS: HEMATOCRIT 24.2 % (41-53); MEAN CORPUSCULAR HEMOGLOBIN 30.6 pg (26.0-34.0); MEAN CORPUSCULAR VOLUME 93 fL (80-100); PLATELET COUNT (AUTO) 243 K/uL (150-450); RED BLOOD CELL COUNT(AUTO) 2.61 MIL/uL (4.50-5.90); RED CELL DISTRIBUTION WIDTH 16.6 % (11.5-14.5)
[2022-02-01 06:26] LABS: CALCIUM, TOTAL 7.4 mg/dL (8.8-10.5); CREATININE 8.7 mg/dL (0.60-1.30); MAGNESIUM 2.3 mg/dL (1.80-2.40); PHOSPHORUS 7.8 mg/dL (2.5-4.9); POTASSIUM 3.7 mmol/L (3.5-5.1)
[2022-02-01 07:51] LABS: BAND NEUTROPHILS % (MANUAL) 2 % (0-5); LYMPHOCYTES % (MANUAL) 8 % (22-44); MONOCYTES % (MANUAL) 5 % (2-9); SEGMENTED NEUTROPHILS % 85 % (40-70)
[2022-02-01 08:00] LABS: GLUCOSE,POINT OF CARE 150 MG/DL (70-110)
[2022-02-01] MEDS: NOREPINEPHRINE 4 MG/D5%-WATER 250 ML IV PRN (08:28)
[2022-02-01] MEDS: CARVEDILOL 6.25 MG TABLET PO SCH ×2 (09:15→21:06)
[2022-02-01] MEDS: GABAPENTIN 100 MG CAPSULE PO SCH ×2 (09:15→21:06)
[2022-02-01] MEDS: DOCUSATE SODIUM 100 MG CAPSULE PO SCH ×2 (09:16→21:06)
[2022-02-01] MEDS: VITAMIN B COMP/VIT C/FOLIC ACID CAPSULE PO SCH (09:16)
[2022-02-01] MEDS: FAMOTIDINE 20 MG TABLET PO SCH (09:16)
[2022-02-01] MEDS: ASPIRIN 81 MG CHEWABLE TABLET PO SCH (09:16)
[2022-02-01] MEDS: ETHYL ALCOHOL 62% ANTISEPTIC NASAL SANITIZER 0.6 ML AMPUL NASAL SCH ×2 (09:16→21:06)
[2022-02-01] MEDS ORDERED: SODIUM CHLORIDE 0.9% 250 ML IV ONE ×2 (09:17→09:30)
[2022-02-01] MEDS: CALCIUM ACETATE 667 MG CAPSULE PO SCH ×3 (09:20→18:51)
[2022-02-01] MEDS ORDERED: FentaNYL CITRATE PF 100 MCG/2 ML VIAL IVP ONE (12:50)
[2022-02-01 13:10] LABS: ABG CARBOXYHEMOGLOBIN 0.8 % (0.0-1.5); ABG HCO3 18.9 mmol/L (22.0-26.0); ABG METHEMOGLOBIN 0.3 % (0.0-1.5); ABG OXYGEN SATURATION 96.5 % (95.0-98.0); ABG OXYHEMOGLOBIN 95.4 % (94.0-100.0); ABG PCO2 47 mmHg (35-45); ABG TOTAL HEMOGLOBIN 8.8 G/dL (12.0-18.0); PO2, ARTERIAL BG 97.1 mmHg (79.0-87.0); SOURCE, BLOOD GAS ARTERIAL; TEMPERATURE, FAHRENHEIT, BG 97.7 FAHREN (96.0-98.6)
[2022-02-01 13:15] LABS: O2 DEVICE,BLOOD GAS VENTILATOR (ROOM AIR); PEEP,BG 5 cm H2O; SITE, BLOOD GAS ARTERIAL LINE; VENT MODE, BG Press. Support Vent. (ROOM AIR)
[2022-02-01 13:16] LABS: PRESSURE SUPPORT, BG 8 cm H2O; SPONTANEOUS VT, BG 375 ml
[2022-02-01 18:51] LABS: GLUCOSE,POINT OF CARE 84 MG/DL (70-110)
[2022-02-01 18:51] LABS: GLUCOSE,POINT OF CARE 120 MG/DL (70-110)
[2022-02-01 18:51] LABS: GLUCOSE,POINT OF CARE 130 MG/DL (70-110)
[2022-02-01 18:51] LABS: GLUCOSE,POINT OF CARE 75 MG/DL (70-110)
[2022-02-01] MEDS ORDERED: PHENOL 1.4% 177 ML SPRAY BOTTLE PO PRN (19:30)
[2022-02-01] MEDS: ATORVASTATIN CALCIUM 20 MG TABLET PO SCH (21:06)
[2022-02-02] VITALS (7 sets, daily range): BP systolic 127–144; BP diastolic 63–78
[2022-02-02] MEDS: NYSTATIN 500,000 UNITS/5 ML SUSPENSION UDCUP PO SCH ×4 (00:35→18:23)
[2022-02-02] MEDS: PIPERACILLIN SODIUM/TAZOBACTAM 2.25 GM in DEXTROSE 5%-WATER 50 ML IV SCH ×3 (00:35→18:21)
[2022-02-02] MEDS: INSULIN LISPRO 100 UNITS/ML SQ PRN ×2 (00:36→06:36)
[2022-02-02 00:46] LABS: GLUCOSE,POINT OF CARE 158 MG/DL (70-110)
[2022-02-02] MEDS: DOXYCYCLINE HYCLATE 100 MG in DEXTROSE 5%-WATER 100 ML IV SCH ×2 (02:49→17:14)
[2022-02-02] MEDS: LEVOTHYROXINE SODIUM 25 MCG TABLET PO SCH (05:41)
[2022-02-02 06:45] LABS: GLUCOSE,POINT OF CARE 136 MG/DL (70-110)
[2022-02-02] MEDS: CALCIUM ACETATE 667 MG CAPSULE PO SCH ×3 (08:37→18:23)
[2022-02-02] MEDS: ASPIRIN 81 MG CHEWABLE TABLET PO SCH (08:37)
[2022-02-02] MEDS: DOCUSATE SODIUM 100 MG CAPSULE PO SCH ×2 (08:37→21:41)
[2022-02-02] MEDS: VITAMIN B COMP/VIT C/FOLIC ACID CAPSULE PO SCH (08:38)
[2022-02-02] MEDS: CARVEDILOL 6.25 MG TABLET PO SCH ×2 (08:38→21:45)
[2022-02-02] MEDS: GABAPENTIN 100 MG CAPSULE PO SCH ×2 (08:38→21:42)
[2022-02-02] MEDS: FAMOTIDINE 20 MG TABLET PO SCH (08:38)
[2022-02-02] MEDS: ETHYL ALCOHOL 62% ANTISEPTIC NASAL SANITIZER 0.6 ML AMPUL NASAL SCH ×2 (08:39→21:41)
[2022-02-02] MEDS ORDERED: HEPARIN SODIUM 1000 UNITS/NS 1,000 ML IARTER ONE (10:15)
[2022-02-02] MEDS ORDERED: FentaNYL CITRATE PF 100 MCG/2 ML VIAL IVP ONE ×2 (10:15)
[2022-02-02] MEDS ORDERED: LIDOCAINE 1% 30 ML/SOD BICARB 8.4% 4 ML SQ ONE (10:15)
[2022-02-02] MEDS ORDERED: IOHEXOL 300 MG/ML 150 ML VIAL IARTER ONE (10:15)
[2022-02-02] MEDS ORDERED: HEPARIN SODIUM,PORCINE 5,000 UNITS/ML VIAL IVP ONE (10:15)
[2022-02-02] MEDS ORDERED: MIDAZOLAM HCL 2 MG/2 ML VIAL IVP ONE ×2 (10:15)
[2022-02-02] MEDS: LACTULOSE 20 GM/30 ML SOLUTION UDCUP PO SCH (10:46)
[2022-02-02 11:15] LABS: CALCIUM, TOTAL 7.6 mg/dL (8.8-10.5); CREATININE 7.93 mg/dL (0.60-1.30); POTASSIUM 3.6 mmol/L (3.5-5.1)
[2022-02-02 12:26] LABS: GLUCOSE,POINT OF CARE 162 MG/DL (70-110)
[2022-02-02 17:36] LABS: GLUCOSE,POINT OF CARE 141 MG/DL (70-110)
[2022-02-02] MEDS: ATORVASTATIN CALCIUM 20 MG TABLET PO SCH (21:42)
[2022-02-02] MEDS: HYDROCODONE/ACETAMINOPHEN 5-325 MG TABLET PO PRN (21:43)
[2022-02-03] VITALS (17 sets, daily range): BP systolic 100–151; BP diastolic 40–80
[2022-02-03] MEDS ORDERED: SODIUM CHLORIDE 0.9% 250 ML IV ONE (00:52)
[2022-02-03] MEDS: PIPERACILLIN SODIUM/TAZOBACTAM 2.25 GM in DEXTROSE 5%-WATER 50 ML IV SCH ×3 (00:53→17:15)
[2022-02-03] MEDS: NYSTATIN 500,000 UNITS/5 ML SUSPENSION UDCUP PO SCH ×4 (00:53→18:39)
[2022-02-03] MEDS: DOXYCYCLINE HYCLATE 100 MG in DEXTROSE 5%-WATER 100 ML IV SCH ×2 (03:52→15:25)
[2022-02-03] MEDS ORDERED: VANCOMYCIN 1GM/WATER(PEG/NADA) 200 ML IV ONE (04:30)
[2022-02-03] MEDS: LEVOTHYROXINE SODIUM 25 MCG TABLET PO SCH (05:07)
[2022-02-03 06:26] LABS: GLUCOSE,POINT OF CARE 202 MG/DL (70-110)
[2022-02-03 06:32] LABS: HEMATOCRIT 27.2 % (41-53); HEMOGLOBIN 9.1 g/dL (13.5-17.5); MEAN CORPUSCULAR HEMOGLOBIN 30.5 pg (26.0-34.0); MEAN CORPUSCULAR HGB CONC 33.4 G/dL (31.0-37.0); MEAN CORPUSCULAR VOLUME 91 fL (80-100); PLATELET COUNT (AUTO) 291 K/uL (150-450); RED BLOOD CELL COUNT(AUTO) 2.98 MIL/uL (4.50-5.90); RED CELL DISTRIBUTION WIDTH 16.3 % (11.5-14.5)
[2022-02-03 07:02] LABS: CREATININE 7.71 mg/dL (0.60-1.30); MAGNESIUM 2.3 mg/dL (1.80-2.40); PHOSPHORUS 6.4 mg/dL (2.5-4.9); POTASSIUM 3.2 mmol/L (3.5-5.1)
[2022-02-03] MEDS ORDERED: LIDOCAINE/PF 1% 30 ML VIAL ONE (07:26)
[2022-02-03] MEDS ORDERED: VERAPAMIL HCL 2.5 MG/ML 2 ML VIAL ONE (07:26)
[2022-02-03] MEDS ORDERED: IOHEXOL 300 MG/ML 100 ML VIAL ONE (07:26)
[2022-02-03] MEDS ORDERED: SODIUM BICARBONATE 50 MEQ/50 ML VIAL ONE (07:26)
[2022-02-03] MEDS ORDERED: IOHEXOL 300 MG/ML 150 ML VIAL ONE (07:26)
[2022-02-03] MEDS ORDERED: HEPARIN SODIUM 1000 UNITS/NS 1,000 ML ONE (07:26)
[2022-02-03] MEDS ORDERED: IOHEXOL 300 MG/ML 50 ML VIAL ONE (07:26)
[2022-02-03] MEDS ORDERED: NITROGLYCERIN 50 MG/D5% WATER 0 ML ONE (07:26)
[2022-02-03 07:42] LABS: BAND NEUTROPHILS % (MANUAL) 1 % (0-5); EOSINOPHILS % (MANUAL) 1 % (1-6); LYMPHOCYTES % (MANUAL) 5 % (22-44); MONOCYTES % (MANUAL) 2 % (2-9); SEGMENTED NEUTROPHILS % 91 % (40-70)
[2022-02-03] MEDS: CALCIUM ACETATE 667 MG CAPSULE PO SCH ×3 (08:00→17:30)
[2022-02-03] MEDS: ETHYL ALCOHOL 62% ANTISEPTIC NASAL SANITIZER 0.6 ML AMPUL NASAL SCH ×2 (08:30→20:21)
[2022-02-03] MEDS: ASPIRIN 81 MG CHEWABLE TABLET PO SCH (09:00)
[2022-02-03] MEDS: LACTULOSE 20 GM/30 ML SOLUTION UDCUP PO SCH (09:00)
[2022-02-03] MEDS: GABAPENTIN 100 MG CAPSULE PO SCH ×2 (09:00→20:21)
[2022-02-03] MEDS: FAMOTIDINE 20 MG TABLET PO SCH (09:00)
[2022-02-03] MEDS: VITAMIN B COMP/VIT C/FOLIC ACID CAPSULE PO SCH (09:00)
[2022-02-03] MEDS: DOCUSATE SODIUM 100 MG CAPSULE PO SCH ×2 (09:00→20:22)
[2022-02-03] MEDS ORDERED: FentaNYL CITRATE PF 100 MCG/2 ML VIAL ONE (09:33)
[2022-02-03] MEDS ORDERED: MIDAZOLAM HCL 2 MG/2 ML VIAL ONE (09:33)
[2022-02-03] MEDS ORDERED: FentaNYL CITRATE PF 100 MCG/2 ML VIAL IVP ONE (09:45)
[2022-02-03] MEDS ORDERED: IOHEXOL 300 MG/ML 150 ML VIAL IARTER ONE (09:45)
[2022-02-03] MEDS ORDERED: LIDOCAINE 1% 30 ML/SOD BICARB 8.4% 4 ML SQ ONE (09:45)
[2022-02-03] MEDS ORDERED: HEPARIN SODIUM 1000 UNITS/NS 1,000 ML IARTER ONE (09:45)
[2022-02-03] MEDS: HYDROCODONE/ACETAMINOPHEN 5-325 MG TABLET PO PRN (10:47)
[2022-02-03] MEDS ORDERED: HYDROCODONE/ACETAMINOPHEN 5-325 MG TABLET PO ONE (11:45)
[2022-02-03] MEDS ORDERED: POTASSIUM CHL 10 MEQ/WATER 50 ML IV SCH (14:30)
[2022-02-03] MEDS ORDERED: POTASSIUM CHLORIDE 10% 40 MEQ/30 ML LIQUID UDCUP PO ONE (17:30)
[2022-02-03] MEDS ORDERED: BISACODYL 10 MG RECTAL RECTAL SUPPOSITORY PR ONE (17:30)
[2022-02-03 18:41] LABS: GLUCOMETER DEV NAME(LOC) AHU.; GLUCOSE,POINT OF CARE 137 MG/DL (70-110)
[2022-02-03] MEDS: CARVEDILOL 3.125 MG TABLET PO SCH (20:21)
[2022-02-03] MEDS: ATORVASTATIN CALCIUM 20 MG TABLET PO SCH (20:21)
[2022-02-04] VITALS: BP 137/68
[2022-02-04] MEDS: NYSTATIN 500,000 UNITS/5 ML SUSPENSION UDCUP PO SCH ×4 (00:15→18:13)
[2022-02-04] MEDS: PIPERACILLIN SODIUM/TAZOBACTAM 2.25 GM in DEXTROSE 5%-WATER 50 ML IV SCH ×3 (00:16→17:09)
[2022-02-04] MEDS: DOXYCYCLINE HYCLATE 100 MG in DEXTROSE 5%-WATER 100 ML IV SCH ×2 (03:30→15:32)
[2022-02-04 04:00] VITALS: BP 131/73
[2022-02-04 05:26] LABS: BASOPHILS % (AUTO) 0.1 % (0.0-2.0); EOSINOPHILS % (AUTO) 1.2 % (1.0-6.0); HEMATOCRIT 27.2 % (41-53); HEMOGLOBIN 8.9 g/dL (13.5-17.5); LYMPHOCYTES % (AUTO) 4.2 % (22.0-44.0); MEAN CORPUSCULAR HGB CONC 32.7 G/dL (31.0-37.0); MEAN CORPUSCULAR VOLUME 92 fL (80-100); MONOCYTES # (AUTO) 1.1 K/uL (0.1-1.0); NEUTROPHILS # (AUTO) 20.4 K/uL (1.8-7.7); PLATELET COUNT (AUTO) 313 K/uL (150-450); RED BLOOD CELL COUNT(AUTO) 2.96 MIL/uL (4.50-5.90); RED CELL DISTRIBUTION WIDTH 16.3 % (11.5-14.5)
[2022-02-04 05:33] LABS: NEUTROPHILS % (AUTO) 89.5 % (40.0-70.0)
[2022-02-04 05:52] LABS: CALCIUM, TOTAL 7.9 mg/dL (8.8-10.5); CREATININE 7.27 mg/dL (0.60-1.30); FREE T4 (FREE THYROXINE) 0.88 ng/dL (0.76-1.46); POTASSIUM 3.4 mmol/L (3.5-5.1); THYROID STIMULATING HORMONE 4.32 uIU/mL (0.36-3.74)
[2022-02-04] MEDS: INSULIN LISPRO 100 UNITS/ML SQ PRN (06:23)
[2022-02-04] MEDS: LEVOTHYROXINE SODIUM 25 MCG TABLET PO SCH (06:45)
[2022-02-04 08:00] VITALS: BP 120/58
[2022-02-04] MEDS ORDERED: POTASSIUM CHLORIDE 20 MEQ ER TABLET PO ONE (08:00)
[2022-02-04] MEDS: CALCIUM ACETATE 667 MG CAPSULE PO SCH ×3 (08:57→18:13)
[2022-02-04] MEDS: LACTULOSE 20 GM/30 ML SOLUTION UDCUP PO SCH (09:00)
[2022-02-04] MEDS: ETHYL ALCOHOL 62% ANTISEPTIC NASAL SANITIZER 0.6 ML AMPUL NASAL SCH ×2 (09:02→20:29)
[2022-02-04] MEDS: FAMOTIDINE 20 MG TABLET PO SCH (09:02)
[2022-02-04] MEDS: VITAMIN B COMP/VIT C/FOLIC ACID CAPSULE PO SCH (09:03)
[2022-02-04] MEDS: DOCUSATE SODIUM 100 MG CAPSULE PO SCH ×2 (09:03→20:29)
[2022-02-04] MEDS: CARVEDILOL 3.125 MG TABLET PO SCH ×2 (09:05→20:29)
[2022-02-04] MEDS: ASPIRIN 81 MG CHEWABLE TABLET PO SCH (09:05)
[2022-02-04] MEDS: GABAPENTIN 100 MG CAPSULE PO SCH ×2 (09:06→20:29)
[2022-02-04 09:26] LABS: GLUCOSE,POINT OF CARE 148 MG/DL (70-110)
[2022-02-04 12:00] VITALS: BP 135/66
[2022-02-04 16:00] VITALS: BP 122/67
[2022-02-04 20:00] VITALS: BP 144/71
[2022-02-04] MEDS: ATORVASTATIN CALCIUM 20 MG TABLET PO SCH (20:29)
[2022-02-05] VITALS (10 sets, daily range): BP systolic 113–166; BP diastolic 66–81
[2022-02-05] MEDS: INSULIN LISPRO 100 UNITS/ML SQ PRN ×4 (00:14→18:16)
[2022-02-05] MEDS: PIPERACILLIN SODIUM/TAZOBACTAM 2.25 GM in DEXTROSE 5%-WATER 50 ML IV SCH ×3 (00:16→16:36)
[2022-02-05 03:21] LABS: GLUCOSE,POINT OF CARE 199 MG/DL (70-110)
[2022-02-05] MEDS: DOXYCYCLINE HYCLATE 100 MG in DEXTROSE 5%-WATER 100 ML IV SCH ×2 (03:36→15:15)
[2022-02-05 05:11] LABS: BASOPHILS % (AUTO) 0.4 % (0.0-2.0); EOSINOPHILS % (AUTO) 2.3 % (1.0-6.0); HEMATOCRIT 25.9 % (41-53); HEMOGLOBIN 8.5 g/dL (13.5-17.5); LYMPHOCYTES # (AUTO) 0.9 K/uL (1.0-4.8); LYMPHOCYTES % (AUTO) 5.7 % (22.0-44.0); MEAN CORPUSCULAR HEMOGLOBIN 30.9 pg (26.0-34.0); MEAN CORPUSCULAR HGB CONC 32.9 G/dL (31.0-37.0); MEAN CORPUSCULAR VOLUME 94 fL (80-100); MONOCYTES # (AUTO) 0.8 K/uL (0.1-1.0); MONOCYTES % (AUTO) 5.4 % (2.0-9.0); NEUTROPHILS # (AUTO) 13.3 K/uL (1.8-7.7); PLATELET COUNT (AUTO) 323 K/uL (150-450); RED BLOOD CELL COUNT(AUTO) 2.76 MIL/uL (4.50-5.90); RED CELL DISTRIBUTION WIDTH 16.4 % (11.5-14.5)
[2022-02-05 05:14] LABS: NEUTROPHILS % (AUTO) 86.2 % (40.0-70.0)
[2022-02-05 05:51] LABS: GLUCOSE,POINT OF CARE 123 MG/DL (70-110)
[2022-02-05] MEDS: LEVOTHYROXINE SODIUM 25 MCG TABLET PO SCH (05:51)
[2022-02-05] MEDS: NYSTATIN 500,000 UNITS/5 ML SUSPENSION UDCUP PO SCH ×4 (05:51→16:36)
[2022-02-05 06:21] LABS: CALCIUM, TOTAL 7.7 mg/dL (8.8-10.5); CREATININE 7.16 mg/dL (0.60-1.30); POTASSIUM 3.3 mmol/L (3.5-5.1)
[2022-02-05 06:26] LABS: ALBUMIN 1.7 g/dL (3.4-5.0); BILIRUBIN,TOTAL 0.4 mg/dL (0.1-1.0)
[2022-02-05] MEDS: CALCIUM ACETATE 667 MG CAPSULE PO SCH ×3 (08:57→16:36)
[2022-02-05] MEDS: VITAMIN B COMP/VIT C/FOLIC ACID CAPSULE PO SCH (08:57)
[2022-02-05] MEDS: FAMOTIDINE 20 MG TABLET PO SCH (08:58)
[2022-02-05] MEDS: ASPIRIN 81 MG CHEWABLE TABLET PO SCH (08:58)
[2022-02-05] MEDS: ETHYL ALCOHOL 62% ANTISEPTIC NASAL SANITIZER 0.6 ML AMPUL NASAL SCH ×2 (08:58→20:01)
[2022-02-05] MEDS: CARVEDILOL 3.125 MG TABLET PO SCH ×2 (08:58→20:01)
[2022-02-05] MEDS: LACTULOSE 20 GM/30 ML SOLUTION UDCUP PO SCH (08:58)
[2022-02-05] MEDS: DOCUSATE SODIUM 100 MG CAPSULE PO SCH ×2 (08:59→20:02)
[2022-02-05] MEDS: GABAPENTIN 100 MG CAPSULE PO SCH ×2 (09:01→20:02)
[2022-02-05] MEDS ORDERED: POTASSIUM CHLORIDE 20 MEQ ER TABLET PO ONE (10:00)
[2022-02-05] MEDS: LOSARTAN POTASSIUM 25 MG TABLET PO SCH (12:42)
[2022-02-05 16:46] LABS: GLUCOSE,POINT OF CARE 183 MG/DL (70-110)
[2022-02-05 18:10] LABS: GLUCOSE,POINT OF CARE 189 MG/DL (70-110)
[2022-02-05] MEDS ORDERED: SODIUM CHLORIDE 0.9% 2,000 ML ONE (18:16)
[2022-02-05] MEDS: ATORVASTATIN CALCIUM 20 MG TABLET PO SCH (20:02)
[2022-02-06] VITALS (8 sets, daily range): BP systolic 122–176; BP diastolic 59–88
[2022-02-06] MEDS: NYSTATIN 500,000 UNITS/5 ML SUSPENSION UDCUP PO SCH ×5 (00:05→23:38)
[2022-02-06] MEDS: PIPERACILLIN SODIUM/TAZOBACTAM 2.25 GM in DEXTROSE 5%-WATER 50 ML IV SCH ×3 (00:13→16:38)
[2022-02-06] MEDS: INSULIN LISPRO 100 UNITS/ML SQ PRN ×4 (00:14→17:45)
[2022-02-06] MEDS: DOXYCYCLINE HYCLATE 100 MG in DEXTROSE 5%-WATER 100 ML IV SCH ×2 (02:02→15:19)
[2022-02-06] MEDS ORDERED: SODIUM CHLORIDE 0.9% 250 ML IV ONE (02:03)
[2022-02-06] MEDS: HYDROCODONE/ACETAMINOPHEN 5-325 MG TABLET PO PRN ×3 (04:59→21:44)
[2022-02-06] MEDS: LEVOTHYROXINE SODIUM 25 MCG TABLET PO SCH (05:37)
[2022-02-06 06:02] LABS: CALCIUM, TOTAL 8.2 mg/dL (8.8-10.5); CREATININE 7.35 mg/dL (0.60-1.30); POTASSIUM 3.4 mmol/L (3.5-5.1)
[2022-02-06] MEDS: CALCIUM ACETATE 667 MG CAPSULE PO SCH (07:48)
[2022-02-06 07:51] LABS: GLUCOSE,POINT OF CARE 220 MG/DL (70-110)
[2022-02-06 07:51] LABS: GLUCOSE,POINT OF CARE 221 MG/DL (70-110)
[2022-02-06] MEDS: LACTULOSE 20 GM/30 ML SOLUTION UDCUP PO SCH (07:51)
[2022-02-06] MEDS: DOCUSATE SODIUM 100 MG CAPSULE PO SCH ×2 (07:51→20:09)
[2022-02-06] MEDS: ASPIRIN 81 MG CHEWABLE TABLET PO SCH (08:30)
[2022-02-06] MEDS: ETHYL ALCOHOL 62% ANTISEPTIC NASAL SANITIZER 0.6 ML AMPUL NASAL SCH ×2 (08:30→20:10)
[2022-02-06] MEDS: CARVEDILOL 3.125 MG TABLET PO SCH ×2 (08:31→20:10)
[2022-02-06] MEDS: VITAMIN B COMP/VIT C/FOLIC ACID CAPSULE PO SCH (08:31)
[2022-02-06] MEDS: LOSARTAN POTASSIUM 25 MG TABLET PO SCH (08:31)
[2022-02-06] MEDS: FAMOTIDINE 20 MG TABLET PO SCH (08:31)
[2022-02-06] MEDS: GABAPENTIN 100 MG CAPSULE PO SCH ×2 (08:31→20:10)
[2022-02-06] MEDS ORDERED: POTASSIUM CHLORIDE 10 MEQ ER TABLET PO ONE (10:15)
[2022-02-06] MEDS: ATORVASTATIN CALCIUM 20 MG TABLET PO SCH (20:10)
[2022-02-06] MEDS: INSULIN GLARGINE,HUM.REC.ANLOG 100 UNITS/ML SQ SCH (20:16)
[2022-02-06 20:26] LABS: GLUCOSE,POINT OF CARE 214 MG/DL (70-110)
[2022-02-06 20:26] LABS: GLUCOSE,POINT OF CARE 189 MG/DL (70-110)
[2022-02-06 23:51] LABS: GLUCOMETER DEV NAME(LOC) AHU.; GLUCOSE,POINT OF CARE 161 MG/DL (70-110)
[2022-02-07] VITALS (10 sets, daily range): BP systolic 113–137; BP diastolic 58–68
[2022-02-07 00:56] LABS: GLUCOSE,POINT OF CARE 127 MG/DL (70-110)
[2022-02-07] MEDS: PIPERACILLIN SODIUM/TAZOBACTAM 2.25 GM in DEXTROSE 5%-WATER 50 ML IV SCH ×3 (01:18→17:45)
[2022-02-07] MEDS: DOXYCYCLINE HYCLATE 100 MG in DEXTROSE 5%-WATER 100 ML IV SCH ×2 (03:18→15:14)
[2022-02-07] MEDS: NYSTATIN 500,000 UNITS/5 ML SUSPENSION UDCUP PO SCH ×3 (05:24→18:46)
[2022-02-07] MEDS: INSULIN LISPRO 100 UNITS/ML SQ PRN ×3 (05:29→18:47)
[2022-02-07] MEDS: LEVOTHYROXINE SODIUM 25 MCG TABLET PO SCH (05:38)
[2022-02-07 06:05] LABS: BASOPHILS % (AUTO) 0.8 % (0.0-2.0); EOSINOPHILS % (AUTO) 3.2 % (1.0-6.0); HEMATOCRIT 28.3 % (41-53); HEMOGLOBIN 9.2 g/dL (13.5-17.5); LYMPHOCYTES # (AUTO) 1.4 K/uL (1.0-4.8); LYMPHOCYTES % (AUTO) 8.5 % (22.0-44.0); MEAN CORPUSCULAR HEMOGLOBIN 30.1 pg (26.0-34.0); MEAN CORPUSCULAR HGB CONC 32.6 G/dL (31.0-37.0); MEAN CORPUSCULAR VOLUME 92 fL (80-100); MONOCYTES % (AUTO) 6.1 % (2.0-9.0); NEUTROPHILS # (AUTO) 13.1 K/uL (1.8-7.7); NEUTROPHILS % (AUTO) 81.4 % (40.0-70.0); PLATELET COUNT (AUTO) 444 K/uL (150-450); RED BLOOD CELL COUNT(AUTO) 3.07 MIL/uL (4.50-5.90); RED CELL DISTRIBUTION WIDTH 16.5 % (11.5-14.5)
[2022-02-07 06:23] LABS: ALBUMIN 1.8 g/dL (3.4-5.0); BILIRUBIN,TOTAL 0.4 mg/dL (0.1-1.0); CREATININE 7.22 mg/dL (0.60-1.30); MAGNESIUM 2.3 mg/dL (1.80-2.40); POTASSIUM 3.5 mmol/L (3.5-5.1); TOTAL PROTEIN, SERUM 6.7 g/dL (6.4-8.2)
[2022-02-07 07:05] LABS: GLUCOMETER DEV NAME(LOC) AHU.; GLUCOSE,POINT OF CARE 226 MG/DL (70-110)
[2022-02-07] MEDS: LACTULOSE 20 GM/30 ML SOLUTION UDCUP PO SCH (08:49)
[2022-02-07] MEDS: LOSARTAN POTASSIUM 25 MG TABLET PO SCH (08:50)
[2022-02-07] MEDS: CARVEDILOL 3.125 MG TABLET PO SCH ×2 (08:50→21:00)
[2022-02-07] MEDS: ASPIRIN 81 MG CHEWABLE TABLET PO SCH (08:50)
[2022-02-07] MEDS: VITAMIN B COMP/VIT C/FOLIC ACID CAPSULE PO SCH (08:50)
[2022-02-07] MEDS: FAMOTIDINE 20 MG TABLET PO SCH (08:50)
[2022-02-07] MEDS: GABAPENTIN 100 MG CAPSULE PO SCH ×2 (08:50→21:12)
[2022-02-07] MEDS: ETHYL ALCOHOL 62% ANTISEPTIC NASAL SANITIZER 0.6 ML AMPUL NASAL SCH ×2 (08:51→21:12)
[2022-02-07] MEDS: DOCUSATE SODIUM 100 MG CAPSULE PO SCH ×2 (08:51→21:12)
[2022-02-07] MEDS: HYDROCODONE/ACETAMINOPHEN 10-325 MG TABLET PO PRN ×2 (14:40→21:40)
[2022-02-07 20:20] LABS: GLUCOSE,POINT OF CARE 144 MG/DL (70-110)
[2022-02-07 20:20] LABS: GLUCOSE,POINT OF CARE 158 MG/DL (70-110)
[2022-02-07] MEDS: ATORVASTATIN CALCIUM 20 MG TABLET PO SCH (21:12)
[2022-02-07] MEDS: INSULIN GLARGINE,HUM.REC.ANLOG 100 UNITS/ML SQ SCH (21:36)
[2022-02-07 23:56] LABS: GLUCOSE,POINT OF CARE 121 MG/DL (70-110)
[2022-02-08] VITALS (9 sets, daily range): BP systolic 113–142; BP diastolic 57–83
[2022-02-08] MEDS: NYSTATIN 500,000 UNITS/5 ML SUSPENSION UDCUP PO SCH ×4 (00:07→18:06)
[2022-02-08] MEDS: PIPERACILLIN SODIUM/TAZOBACTAM 2.25 GM in DEXTROSE 5%-WATER 50 ML IV SCH ×3 (00:07→20:48)
[2022-02-08] MEDS ORDERED: SODIUM CHLORIDE 0.9% 250 ML IV ONE (00:12)
[2022-02-08] MEDS: DOXYCYCLINE HYCLATE 100 MG in DEXTROSE 5%-WATER 100 ML IV SCH ×2 (03:04→15:31)
[2022-02-08] MEDS: LEVOTHYROXINE SODIUM 25 MCG TABLET PO SCH (06:03)
[2022-02-08 07:40] LABS: GLUCOSE,POINT OF CARE 139 MG/DL (70-110)
[2022-02-08] MEDS: LACTULOSE 20 GM/30 ML SOLUTION UDCUP PO SCH (09:00)
[2022-02-08] MEDS: CARVEDILOL 3.125 MG TABLET PO SCH ×2 (09:00→20:50)
[2022-02-08] MEDS: ASPIRIN 81 MG CHEWABLE TABLET PO SCH (09:21)
[2022-02-08] MEDS: LOSARTAN POTASSIUM 25 MG TABLET PO SCH (09:22)
[2022-02-08] MEDS: FAMOTIDINE 20 MG TABLET PO SCH (09:22)
[2022-02-08] MEDS: DOCUSATE SODIUM 100 MG CAPSULE PO SCH ×2 (09:22→20:50)
[2022-02-08] MEDS: VITAMIN B COMP/VIT C/FOLIC ACID CAPSULE PO SCH (09:22)
[2022-02-08] MEDS: ETHYL ALCOHOL 62% ANTISEPTIC NASAL SANITIZER 0.6 ML AMPUL NASAL SCH ×2 (09:22→20:48)
[2022-02-08] MEDS: GABAPENTIN 100 MG CAPSULE PO SCH ×2 (09:23→20:50)
[2022-02-08] MEDS ORDERED: IOHEXOL 300 MG/ML 150 ML VIAL ONE (09:56)
[2022-02-08] MEDS ORDERED: IOHEXOL 300 MG/ML 50 ML VIAL ONE ×2 (09:56→12:09)
[2022-02-08] MEDS ORDERED: HEPARIN SODIUM 1000 UNITS/NS 1,000 ML ONE (09:56)
[2022-02-08] MEDS ORDERED: IOHEXOL 300 MG/ML 100 ML VIAL ONE (09:56)
[2022-02-08] MEDS ORDERED: LIDOCAINE/PF 1% 30 ML VIAL ONE (09:56)
[2022-02-08] MEDS ORDERED: SODIUM BICARBONATE 50 MEQ/50 ML VIAL ONE (09:56)
[2022-02-08] MEDS ORDERED: MIDAZOLAM HCL 2 MG/2 ML VIAL ONE (10:22)
[2022-02-08] MEDS ORDERED: FentaNYL CITRATE PF 100 MCG/2 ML VIAL ONE (10:22)
[2022-02-08] MEDS ORDERED: LIDOCAINE 1% 30 ML/SOD BICARB 8.4% 4 ML SQ ONE (10:45)
[2022-02-08] MEDS ORDERED: HEPARIN SODIUM 2,000 UNITS in HEPARIN SODIUM 1000 UNITS/NS 1,000 ML IARTER ONE (10:45)
[2022-02-08] MEDS ORDERED: MIDAZOLAM HCL 2 MG/2 ML VIAL IVP ONE ×3 (10:45→12:00)
[2022-02-08] MEDS ORDERED: IOHEXOL 300 MG/ML 150 ML VIAL IARTER ONE (10:45)
[2022-02-08] MEDS ORDERED: SODIUM CHLORIDE 0.9% 500 ML IV ONE (10:45)
[2022-02-08] MEDS ORDERED: FentaNYL CITRATE PF 100 MCG/2 ML VIAL IVP ONE ×3 (10:45→12:00)
[2022-02-08] MEDS ORDERED: HEPARIN SODIUM,PORCINE 5,000 UNITS/ML VIAL IVP ONE ×3 (11:00→13:15)
[2022-02-08] MEDS: NOREPINEPHRINE 4 MG/D5%-WATER 250 ML IV PRN (11:25)
[2022-02-08] MEDS ORDERED: NOREPINEPHRINE 4 MG/D5%-WATER 250 ML IV PRN (11:30)
[2022-02-08] MEDS ORDERED: HEPARIN SODIUM 1000 UNITS/NS 500 ML ONE (11:55)
[2022-02-08] MEDS ORDERED: TICAGRELOR 90 MG TABLET ONE (13:11)
[2022-02-08] MEDS ORDERED: TICAGRELOR 90 MG TABLET PO ONE (13:15)
[2022-02-08 15:57] LABS: BASOPHILS % (AUTO) 0.7 % (0.0-2.0); EOSINOPHILS % (AUTO) 3.4 % (1.0-6.0); HEMOGLOBIN 9.9 g/dL (13.5-17.5); LYMPHOCYTES # (AUTO) 1.1 K/uL (1.0-4.8); LYMPHOCYTES % (AUTO) 8.9 % (22.0-44.0); MEAN CORPUSCULAR HEMOGLOBIN 30.3 pg (26.0-34.0); MEAN CORPUSCULAR HGB CONC 31.9 G/dL (31.0-37.0); MEAN CORPUSCULAR VOLUME 95 fL (80-100); MONOCYTES # (AUTO) 0.8 K/uL (0.1-1.0); MONOCYTES % (AUTO) 6.1 % (2.0-9.0); NEUTROPHILS # (AUTO) 10.2 K/uL (1.8-7.7); NEUTROPHILS % (AUTO) 80.9 % (40.0-70.0); PLATELET COUNT (AUTO) 382 K/uL (150-450); RED BLOOD CELL COUNT(AUTO) 3.27 MIL/uL (4.50-5.90); RED CELL DISTRIBUTION WIDTH 16.4 % (11.5-14.5)
[2022-02-08 16:10] LABS: ALBUMIN 1.6 g/dL (3.4-5.0); BILIRUBIN,TOTAL 0.4 mg/dL (0.1-1.0); CALCIUM, TOTAL 8.1 mg/dL (8.8-10.5); CREATININE 7.25 mg/dL (0.60-1.30); MAGNESIUM 2.2 mg/dL (1.80-2.40); POTASSIUM 3.8 mmol/L (3.5-5.1); TOTAL PROTEIN, SERUM 6.6 g/dL (6.4-8.2); VANCOMYCIN,RANDOM 15.4 mcg/mL (25.0-50.0)
[2022-02-08] MEDS: HYDROCODONE/ACETAMINOPHEN 10-325 MG TABLET PO PRN ×2 (16:17→22:05)
[2022-02-08] MEDS ORDERED: VANCOMYCIN HCL 750 MG in DEXTROSE 5%-WATER 250 ML IV ONE (17:00)
[2022-02-08] MEDS: TICAGRELOR 90 MG TABLET PO SCH (20:49)
[2022-02-08] MEDS: ATORVASTATIN CALCIUM 20 MG TABLET PO SCH (20:50)
[2022-02-08] MEDS ORDERED: GENTAMICIN SULFATE 0.1% 15 GM CREAM TP ONE (21:00)
[2022-02-08] MEDS: INSULIN GLARGINE,HUM.REC.ANLOG 100 UNITS/ML SQ SCH (21:01)
[2022-02-09] VITALS (8 sets, daily range): BP systolic 84–136; BP diastolic 53–75
[2022-02-09] MEDS: NYSTATIN 500,000 UNITS/5 ML SUSPENSION UDCUP PO SCH ×4 (00:43→18:17)
[2022-02-09] MEDS: DOXYCYCLINE HYCLATE 100 MG in DEXTROSE 5%-WATER 100 ML IV SCH (03:00)
[2022-02-09 03:36] LABS: GLUCOSE,POINT OF CARE 127 MG/DL (70-110)
[2022-02-09] MEDS: NOREPINEPHRINE 4 MG/D5%-WATER 250 ML IV PRN (05:20)
[2022-02-09] MEDS: LEVOTHYROXINE SODIUM 25 MCG TABLET PO SCH (05:39)
[2022-02-09] MEDS: INSULIN LISPRO 100 UNITS/ML SQ PRN ×2 (06:53→17:28)
[2022-02-09 07:51] LABS: GLUCOSE,POINT OF CARE 163 MG/DL (70-110)
[2022-02-09 08:05] LABS: HEMATOCRIT 28.9 % (41-53); HEMOGLOBIN 9.7 g/dL (13.5-17.5); MEAN CORPUSCULAR HEMOGLOBIN 30.7 pg (26.0-34.0); MEAN CORPUSCULAR HGB CONC 33.5 G/dL (31.0-37.0); MEAN CORPUSCULAR VOLUME 92 fL (80-100); PLATELET COUNT (AUTO) 408 K/uL (150-450); RED BLOOD CELL COUNT(AUTO) 3.15 MIL/uL (4.50-5.90); RED CELL DISTRIBUTION WIDTH 16.5 % (11.5-14.5)
[2022-02-09 08:14] LABS: CALCIUM, TOTAL 7.9 mg/dL (8.8-10.5); CREATININE 7.02 mg/dL (0.60-1.30)
[2022-02-09 08:30] LABS: BAND NEUTROPHILS % (MANUAL) 8 % (0-5); LYMPHOCYTES % (MANUAL) 10 % (22-44); MONOCYTES % (MANUAL) 3 % (2-9); SEGMENTED NEUTROPHILS % 79 % (40-70)
[2022-02-09] MEDS: ETHYL ALCOHOL 62% ANTISEPTIC NASAL SANITIZER 0.6 ML AMPUL NASAL SCH ×2 (08:36→20:05)
[2022-02-09] MEDS: VITAMIN B COMP/VIT C/FOLIC ACID CAPSULE PO SCH (08:37)
[2022-02-09] MEDS: TICAGRELOR 90 MG TABLET PO SCH ×2 (08:37→20:05)
[2022-02-09] MEDS: GABAPENTIN 100 MG CAPSULE PO SCH ×2 (08:37→20:06)
[2022-02-09] MEDS: PIPERACILLIN SODIUM/TAZOBACTAM 2.25 GM in DEXTROSE 5%-WATER 50 ML IV SCH ×2 (08:37→20:05)
[2022-02-09] MEDS: PANTOPRAZOLE SODIUM 40 MG DR TABLET PO SCH (08:37)
[2022-02-09] MEDS: CARVEDILOL 3.125 MG TABLET PO SCH ×2 (08:37→20:06)
[2022-02-09] MEDS: ASPIRIN 81 MG CHEWABLE TABLET PO SCH (08:37)
[2022-02-09] MEDS: LOSARTAN POTASSIUM 25 MG TABLET PO SCH (08:45)
[2022-02-09] MEDS: HYDROCODONE/ACETAMINOPHEN 10-325 MG TABLET PO PRN (10:30)
[2022-02-09] MEDS: DOXYCYCLINE HYCLATE 100 MG TABLET PO SCH (20:05)
[2022-02-09] MEDS: ATORVASTATIN CALCIUM 20 MG TABLET PO SCH (20:05)
[2022-02-09] MEDS: INSULIN GLARGINE,HUM.REC.ANLOG 100 UNITS/ML SQ SCH (20:09)
[2022-02-10 00:01] LABS: GLUCOMETER DEV NAME(LOC) AHU.; GLUCOSE,POINT OF CARE 81 MG/DL (70-110)
[2022-02-10 00:01] LABS: GLUCOMETER DEV NAME(LOC) AHU.; GLUCOSE,POINT OF CARE 166 MG/DL (70-110)
[2022-02-10 00:23] VITALS: BP 100/62
[2022-02-10] MEDS: NYSTATIN 500,000 UNITS/5 ML SUSPENSION UDCUP PO SCH ×4 (01:08→17:37)
[2022-02-10 04:00] VITALS: BP 124/62
[2022-02-10] MEDS: INSULIN LISPRO 100 UNITS/ML SQ PRN (05:36)
[2022-02-10 05:41] LABS: GLUCOMETER DEV NAME(LOC) 5N.1C; GLUCOSE,POINT OF CARE 151 MG/DL (70-110)
[2022-02-10] MEDS: LEVOTHYROXINE SODIUM 25 MCG TABLET PO SCH (05:45)
[2022-02-10 05:46] LABS: GLUCOSE,POINT OF CARE 157 MG/DL (70-110)
[2022-02-10] MEDS: HYDROCODONE/ACETAMINOPHEN 10-325 MG TABLET PO PRN ×3 (06:37→20:46)
[2022-02-10 06:41] LABS: HEMATOCRIT 27.5 % (41-53); HEMOGLOBIN 9.1 g/dL (13.5-17.5); MEAN CORPUSCULAR HEMOGLOBIN 30.6 pg (26.0-34.0); MEAN CORPUSCULAR HGB CONC 33.1 G/dL (31.0-37.0); MEAN CORPUSCULAR VOLUME 93 fL (80-100); PLATELET COUNT (AUTO) 391 K/uL (150-450); RED BLOOD CELL COUNT(AUTO) 2.98 MIL/uL (4.50-5.90)
[2022-02-10 07:09] LABS: BAND NEUTROPHILS % (MANUAL) 7 % (0-5); EOSINOPHILS % (MANUAL) 1 % (1-6); LYMPHOCYTES % (MANUAL) 9 % (22-44); MONOCYTES % (MANUAL) 5 % (2-9); SEGMENTED NEUTROPHILS % 78 % (40-70)
[2022-02-10 08:10] VITALS: BP 97/54
[2022-02-10] MEDS: CARVEDILOL 3.125 MG TABLET PO SCH ×2 (08:42→20:46)
[2022-02-10] MEDS: VITAMIN B COMP/VIT C/FOLIC ACID CAPSULE PO SCH (09:03)
[2022-02-10] MEDS: ASPIRIN 81 MG CHEWABLE TABLET PO SCH (09:03)
[2022-02-10] MEDS: PANTOPRAZOLE SODIUM 40 MG DR TABLET PO SCH (09:03)
[2022-02-10] MEDS: LOSARTAN POTASSIUM 25 MG TABLET PO SCH (09:03)
[2022-02-10] MEDS: GABAPENTIN 100 MG CAPSULE PO SCH ×2 (09:03→21:25)
[2022-02-10] MEDS: DOXYCYCLINE HYCLATE 100 MG TABLET PO SCH ×2 (09:04→21:25)
[2022-02-10] MEDS: PIPERACILLIN SODIUM/TAZOBACTAM 2.25 GM in DEXTROSE 5%-WATER 50 ML IV SCH ×2 (09:13→20:45)
[2022-02-10] MEDS: TICAGRELOR 90 MG TABLET PO SCH ×2 (09:14→20:46)
[2022-02-10] MEDS ORDERED: POTASSIUM CHLORIDE 10 MEQ ER TABLET PO ONE (10:15)
[2022-02-10 12:15] VITALS: BP 148/68
[2022-02-10 17:05] VITALS: BP 127/65
[2022-02-10 19:46] LABS: GLUCOMETER DEV NAME(LOC) 5N.1C; GLUCOSE,POINT OF CARE 123 MG/DL (70-110)
[2022-02-10 19:46] LABS: GLUCOMETER DEV NAME(LOC) 5N.3; GLUCOSE,POINT OF CARE 98 MG/DL (70-110)
[2022-02-10 20:10] VITALS: BP 151/75
[2022-02-10] MEDS: MELATONIN 5 MG TABLET PO PRN (20:46)
[2022-02-10] MEDS: ATORVASTATIN CALCIUM 20 MG TABLET PO SCH (20:46)
[2022-02-10] MEDS: INSULIN GLARGINE,HUM.REC.ANLOG 100 UNITS/ML SQ SCH (21:10)
[2022-02-10 22:36] LABS: GLUCOMETER DEV NAME(LOC) 5N.1C; GLUCOSE,POINT OF CARE 118 MG/DL (70-110)
[2022-02-11] VITALS (8 sets, daily range): BP systolic 98–147; BP diastolic 54–68
[2022-02-11] MEDS: NYSTATIN 500,000 UNITS/5 ML SUSPENSION UDCUP PO SCH ×4 (00:14→17:33)
[2022-02-11] MEDS: LEVOTHYROXINE SODIUM 25 MCG TABLET PO SCH (06:30)
[2022-02-11] MEDS: INSULIN LISPRO 100 UNITS/ML SQ PRN (06:52)
[2022-02-11 07:07] LABS: BASOPHILS % (AUTO) 0.5 % (0.0-2.0); EOSINOPHILS % (AUTO) 2.3 % (1.0-6.0); HEMOGLOBIN 8.7 g/dL (13.5-17.5); LYMPHOCYTES # (AUTO) 0.9 K/uL (1.0-4.8); LYMPHOCYTES % (AUTO) 5.6 % (22.0-44.0); MEAN CORPUSCULAR HEMOGLOBIN 29.9 pg (26.0-34.0); MEAN CORPUSCULAR HGB CONC 32.2 G/dL (31.0-37.0); MEAN CORPUSCULAR VOLUME 93 fL (80-100); MONOCYTES # (AUTO) 0.9 K/uL (0.1-1.0); NEUTROPHILS # (AUTO) 13.4 K/uL (1.8-7.7); PLATELET COUNT (AUTO) 394 K/uL (150-450); RED BLOOD CELL COUNT(AUTO) 2.92 MIL/uL (4.50-5.90); RED CELL DISTRIBUTION WIDTH 17.4 % (11.5-14.5)
[2022-02-11 07:08] LABS: NEUTROPHILS % (AUTO) 85.6 % (40.0-70.0)
[2022-02-11 07:27] LABS: CALCIUM, TOTAL 7.9 mg/dL (8.8-10.5); CREATININE 7.19 mg/dL (0.60-1.30); MAGNESIUM 2.5 mg/dL (1.80-2.40); PHOSPHORUS 6.4 mg/dL (2.5-4.9); POTASSIUM 3.6 mmol/L (3.5-5.1)
[2022-02-11] MEDS: ASPIRIN 81 MG CHEWABLE TABLET PO SCH (09:59)
[2022-02-11] MEDS: HYDROCODONE/ACETAMINOPHEN 10-325 MG TABLET PO PRN (09:59)
[2022-02-11] MEDS: PANTOPRAZOLE SODIUM 40 MG DR TABLET PO SCH (10:00)
[2022-02-11] MEDS: LOSARTAN POTASSIUM 25 MG TABLET PO SCH (10:00)
[2022-02-11] MEDS: VITAMIN B COMP/VIT C/FOLIC ACID CAPSULE PO SCH (10:00)
[2022-02-11] MEDS: CARVEDILOL 3.125 MG TABLET PO SCH ×2 (10:00→21:38)
[2022-02-11] MEDS: GABAPENTIN 100 MG CAPSULE PO SCH ×2 (10:01→21:39)
[2022-02-11] MEDS: TICAGRELOR 90 MG TABLET PO SCH ×2 (10:01→21:38)
[2022-02-11] MEDS: DOXYCYCLINE HYCLATE 100 MG TABLET PO SCH ×2 (10:01→21:40)
[2022-02-11] MEDS: PIPERACILLIN SODIUM/TAZOBACTAM 2.25 GM in DEXTROSE 5%-WATER 50 ML IV SCH ×2 (10:02→21:38)
[2022-02-11] MEDS ORDERED: SODIUM CHLORIDE 0.9% 250 ML IV ONE (10:06)
[2022-02-11 10:16] LABS: GLUCOMETER DEV NAME(LOC) 5N.1C; GLUCOSE,POINT OF CARE 143 MG/DL (70-110)
[2022-02-11] MEDS: SEVELAMER CARBONATE 800 MG TABLET PO SCH ×2 (11:52→17:33)
[2022-02-11 12:21] LABS: GLUCOMETER DEV NAME(LOC) 5S.1B; GLUCOSE,POINT OF CARE 140 MG/DL (70-110)
[2022-02-11] MEDS: ONDANSETRON HCL 4 MG/2 ML VIAL IVP PRN (13:45)
[2022-02-11] MEDS: EPOETIN ALFA 10,000 UNITS/ML 2 ML VIAL SQ SCH (13:46)
[2022-02-11] MEDS: HYDROCODONE/ACETAMINOPHEN 5-325 MG TABLET PO PRN (15:44)
[2022-02-11 19:36] LABS: GLUCOMETER DEV NAME(LOC) 5N.1C; GLUCOSE,POINT OF CARE 94 MG/DL (70-110)
[2022-02-11] MEDS: ATORVASTATIN CALCIUM 20 MG TABLET PO SCH (21:39)
[2022-02-11] MEDS: INSULIN GLARGINE,HUM.REC.ANLOG 100 UNITS/ML SQ SCH (21:40)
[2022-02-12] VITALS (9 sets, daily range): BP systolic 96–154; BP diastolic 53–77
[2022-02-12] MEDS: NYSTATIN 500,000 UNITS/5 ML SUSPENSION UDCUP PO SCH ×5 (00:05→23:30)
[2022-02-12] MEDS ORDERED: SODIUM CHLORIDE 3% 15 ML NEB SOLUTION NEB ONE ×4 (00:41→23:05)
[2022-02-12] MEDS: HYDROCODONE/ACETAMINOPHEN 10-325 MG TABLET PO PRN (01:26)
[2022-02-12 04:56] LABS: GLUCOMETER DEV NAME(LOC) 5N.1C; GLUCOSE,POINT OF CARE 104 MG/DL (70-110)
[2022-02-12] MEDS: LEVOTHYROXINE SODIUM 25 MCG TABLET PO SCH (05:45)
[2022-02-12] MEDS: INSULIN LISPRO 100 UNITS/ML SQ PRN (05:45)
[2022-02-12 06:06] LABS: HIV 1-2 SCREEN 4TH GEN W/RFLX Non Reactive (Non Reactive)
[2022-02-12 06:22] LABS: VANCOMYCIN,RANDOM 20.7 mcg/mL (25.0-50.0)
[2022-02-12] MEDS: CARVEDILOL 3.125 MG TABLET PO SCH ×2 (09:00→20:35)
[2022-02-12] MEDS: VITAMIN B COMP/VIT C/FOLIC ACID CAPSULE PO SCH (09:16)
[2022-02-12] MEDS: PIPERACILLIN SODIUM/TAZOBACTAM 2.25 GM in DEXTROSE 5%-WATER 50 ML IV SCH ×2 (09:16→20:34)
[2022-02-12] MEDS: SEVELAMER CARBONATE 800 MG TABLET PO SCH ×3 (09:17→18:10)
[2022-02-12] MEDS: TICAGRELOR 90 MG TABLET PO SCH ×2 (09:17→20:35)
[2022-02-12] MEDS: ASPIRIN 81 MG CHEWABLE TABLET PO SCH (09:17)
[2022-02-12] MEDS: PANTOPRAZOLE SODIUM 40 MG DR TABLET PO SCH (09:17)
[2022-02-12] MEDS: DOXYCYCLINE HYCLATE 100 MG TABLET PO SCH ×2 (09:17→20:36)
[2022-02-12] MEDS: GABAPENTIN 100 MG CAPSULE PO SCH ×2 (09:17→20:36)
[2022-02-12 09:20] LABS: CALCIUM, TOTAL 8.1 mg/dL (8.8-10.5); CREATININE 7.25 mg/dL (0.60-1.30); MAGNESIUM 2.4 mg/dL (1.80-2.40); PHOSPHORUS 6.6 mg/dL (2.5-4.9); POTASSIUM 3.6 mmol/L (3.5-5.1)
[2022-02-12] MEDS: LOSARTAN POTASSIUM 25 MG TABLET PO SCH (12:22)
[2022-02-12] MEDS: ETHYL ALCOHOL 62% ANTISEPTIC NASAL SANITIZER 0.6 ML AMPUL NASAL SCH ×2 (12:22→20:35)
[2022-02-12] MEDS: HYDROCODONE/ACETAMINOPHEN 5-325 MG TABLET PO PRN (16:34)
[2022-02-12] MEDS ORDERED: VANCOMYCIN HCL 1 GM in DEXTROSE 5%-WATER 250 ML IV ONE (18:00)
[2022-02-12 20:26] LABS: GLUCOMETER DEV NAME(LOC) 5N.1C; GLUCOSE,POINT OF CARE 109 MG/DL (70-110)
[2022-02-12 20:26] LABS: GLUCOMETER DEV NAME(LOC) 5N.1C; GLUCOSE,POINT OF CARE 123 MG/DL (70-110)
[2022-02-12] MEDS: ATORVASTATIN CALCIUM 20 MG TABLET PO SCH (20:36)
[2022-02-12] MEDS: INSULIN GLARGINE,HUM.REC.ANLOG 100 UNITS/ML SQ SCH (20:37)
[2022-02-13] VITALS (8 sets, daily range): BP systolic 114–155; BP diastolic 55–74
[2022-02-13] MEDS: NYSTATIN 500,000 UNITS/5 ML SUSPENSION UDCUP PO SCH ×3 (05:44→18:31)
[2022-02-13] MEDS: LEVOTHYROXINE SODIUM 25 MCG TABLET PO SCH (05:44)
[2022-02-13] MEDS: INSULIN LISPRO 100 UNITS/ML SQ PRN (05:45)
[2022-02-13 07:19] LABS: BASOPHILS % (AUTO) 0.3 % (0.0-2.0); HEMATOCRIT 25.1 % (41-53); HEMOGLOBIN 8.3 g/dL (13.5-17.5); LYMPHOCYTES # (AUTO) 0.9 K/uL (1.0-4.8); LYMPHOCYTES % (AUTO) 5.7 % (22.0-44.0); MEAN CORPUSCULAR HEMOGLOBIN 30.8 pg (26.0-34.0); MEAN CORPUSCULAR HGB CONC 33.2 G/dL (31.0-37.0); MEAN CORPUSCULAR VOLUME 93 fL (80-100); MONOCYTES # (AUTO) 0.9 K/uL (0.1-1.0); MONOCYTES % (AUTO) 5.3 % (2.0-9.0); NEUTROPHILS # (AUTO) 14.2 K/uL (1.8-7.7); PLATELET COUNT (AUTO) 337 K/uL (150-450); RED BLOOD CELL COUNT(AUTO) 2.71 MIL/uL (4.50-5.90); RED CELL DISTRIBUTION WIDTH 17.5 % (11.5-14.5)
[2022-02-13 07:21] LABS: NEUTROPHILS % (AUTO) 86.7 % (40.0-70.0)
[2022-02-13 07:38] LABS: CALCIUM, TOTAL 7.9 mg/dL (8.8-10.5); CREATININE 6.62 mg/dL (0.60-1.30); MAGNESIUM 2.1 mg/dL (1.80-2.40); PHOSPHORUS 5.6 mg/dL (2.5-4.9); POTASSIUM 3.1 mmol/L (3.5-5.1)
[2022-02-13] MEDS: CARVEDILOL 3.125 MG TABLET PO SCH ×2 (09:18→20:39)
[2022-02-13] MEDS: ASPIRIN 81 MG CHEWABLE TABLET PO SCH (09:18)
[2022-02-13] MEDS: DOXYCYCLINE HYCLATE 100 MG TABLET PO SCH ×2 (09:18→20:40)
[2022-02-13] MEDS: PIPERACILLIN SODIUM/TAZOBACTAM 2.25 GM in DEXTROSE 5%-WATER 50 ML IV SCH ×2 (09:18→20:39)
[2022-02-13] MEDS: TICAGRELOR 90 MG TABLET PO SCH ×2 (09:20→20:39)
[2022-02-13] MEDS: EPOETIN ALFA 10,000 UNITS/ML 2 ML VIAL SQ SCH (09:20)
[2022-02-13] MEDS: PANTOPRAZOLE SODIUM 40 MG DR TABLET PO SCH (09:20)
[2022-02-13] MEDS: VITAMIN B COMP/VIT C/FOLIC ACID CAPSULE PO SCH (09:20)
[2022-02-13] MEDS: LOSARTAN POTASSIUM 25 MG TABLET PO SCH (09:20)
[2022-02-13] MEDS: ETHYL ALCOHOL 62% ANTISEPTIC NASAL SANITIZER 0.6 ML AMPUL NASAL SCH ×2 (09:21→20:39)
[2022-02-13] MEDS: GABAPENTIN 100 MG CAPSULE PO SCH ×2 (09:21→20:40)
[2022-02-13] MEDS: SEVELAMER CARBONATE 800 MG TABLET PO SCH ×3 (09:21→18:31)
[2022-02-13] MEDS: HYDROCODONE/ACETAMINOPHEN 10-325 MG TABLET PO PRN ×2 (12:30→20:40)
[2022-02-13] MEDS ORDERED: POTASSIUM CHLORIDE 20 MEQ ER TABLET PO ONE (12:45)
[2022-02-13] MEDS: ATORVASTATIN CALCIUM 20 MG TABLET PO SCH (20:39)
[2022-02-13] MEDS: INSULIN GLARGINE,HUM.REC.ANLOG 100 UNITS/ML SQ SCH (20:55)
[2022-02-14] MEDS: NYSTATIN 500,000 UNITS/5 ML SUSPENSION UDCUP PO SCH ×5 (00:51→23:58)
[2022-02-14 04:00] VITALS: BP 133/64
[2022-02-14] MEDS: HYDROCODONE/ACETAMINOPHEN 10-325 MG TABLET PO PRN ×2 (05:23→18:22)
[2022-02-14] MEDS: LEVOTHYROXINE SODIUM 25 MCG TABLET PO SCH (05:43)
[2022-02-14] MEDS: INSULIN LISPRO 100 UNITS/ML SQ PRN (05:46)
[2022-02-14 07:40] LABS: BASOPHILS % (AUTO) 0.4 % (0.0-2.0); EOSINOPHILS % (AUTO) 2.2 % (1.0-6.0); HEMATOCRIT 24.8 % (41-53); HEMOGLOBIN 8.2 g/dL (13.5-17.5); LYMPHOCYTES # (AUTO) 0.8 K/uL (1.0-4.8); LYMPHOCYTES % (AUTO) 5.1 % (22.0-44.0); MEAN CORPUSCULAR HEMOGLOBIN 30.5 pg (26.0-34.0); MEAN CORPUSCULAR VOLUME 92 fL (80-100); MONOCYTES # (AUTO) 1.3 K/uL (0.1-1.0); MONOCYTES % (AUTO) 8.2 % (2.0-9.0); NEUTROPHILS # (AUTO) 13.3 K/uL (1.8-7.7); NEUTROPHILS % (AUTO) 84.1 % (40.0-70.0); PLATELET COUNT (AUTO) 318 K/uL (150-450); RED BLOOD CELL COUNT(AUTO) 2.68 MIL/uL (4.50-5.90); RED CELL DISTRIBUTION WIDTH 17.6 % (11.5-14.5)
[2022-02-14 07:53] LABS: ALBUMIN 1.4 g/dL (3.4-5.0); BILIRUBIN,TOTAL 0.4 mg/dL (0.1-1.0); CALCIUM, TOTAL 7.9 mg/dL (8.8-10.5); CREATININE 6.35 mg/dL (0.60-1.30); MAGNESIUM 2.1 mg/dL (1.80-2.40); POTASSIUM 3.5 mmol/L (3.5-5.1); TOTAL PROTEIN, SERUM 6.2 g/dL (6.4-8.2)
[2022-02-14 08:06] LABS: QUANTIFERON, TB GOLD PLUS Indeterminate (Negative)
[2022-02-14 08:15] VITALS: BP 123/67
[2022-02-14] MEDS: LOSARTAN POTASSIUM 25 MG TABLET PO SCH (09:00)
[2022-02-14] MEDS: DOXYCYCLINE HYCLATE 100 MG TABLET PO SCH ×2 (09:00→21:26)
[2022-02-14] MEDS: VITAMIN B COMP/VIT C/FOLIC ACID CAPSULE PO SCH (09:00)
[2022-02-14] MEDS: ASPIRIN 81 MG CHEWABLE TABLET PO SCH (09:00)
[2022-02-14] MEDS: PANTOPRAZOLE SODIUM 40 MG DR TABLET PO SCH (09:00)
[2022-02-14] MEDS: SEVELAMER CARBONATE 800 MG TABLET PO SCH ×3 (09:01→18:05)
[2022-02-14] MEDS: GABAPENTIN 100 MG CAPSULE PO SCH ×2 (09:01→21:26)
[2022-02-14] MEDS: TICAGRELOR 90 MG TABLET PO SCH ×2 (09:01→21:26)
[2022-02-14] MEDS: CARVEDILOL 3.125 MG TABLET PO SCH ×2 (09:03→21:26)
[2022-02-14] MEDS: PIPERACILLIN SODIUM/TAZOBACTAM 2.25 GM in DEXTROSE 5%-WATER 50 ML IV SCH ×2 (09:03→21:26)
[2022-02-14] MEDS: ETHYL ALCOHOL 62% ANTISEPTIC NASAL SANITIZER 0.6 ML AMPUL NASAL SCH ×2 (09:03→21:26)
[2022-02-14 10:07] LABS: GLUCOMETER DEV NAME(LOC) 5N.3; GLUCOSE,POINT OF CARE 102 MG/DL (70-110)
[2022-02-14 10:07] LABS: GLUCOMETER DEV NAME(LOC) 5N.1C; GLUCOSE,POINT OF CARE 99 MG/DL (70-110)
[2022-02-14 10:07] LABS: GLUCOMETER DEV NAME(LOC) 5N.3; GLUCOSE,POINT OF CARE 171 MG/DL (70-110)
[2022-02-14 10:07] LABS: GLUCOMETER DEV NAME(LOC) 5N.1C; GLUCOSE,POINT OF CARE 97 MG/DL (70-110)
[2022-02-14 10:07] LABS: GLUCOMETER DEV NAME(LOC) 5N.1C; GLUCOSE,POINT OF CARE 90 MG/DL (70-110)
[2022-02-14 10:07] LABS: GLUCOMETER DEV NAME(LOC) 5N.1C; GLUCOSE,POINT OF CARE 152 MG/DL (70-110)
[2022-02-14 10:07] LABS: GLUCOMETER DEV NAME(LOC) 5N.3; GLUCOSE,POINT OF CARE 141 MG/DL (70-110)
[2022-02-14 11:25] VITALS: BP 131/64
[2022-02-14 16:46] VITALS: BP 163/79
[2022-02-14 19:22] VITALS: BP 157/77
[2022-02-14 20:16] LABS: GLUCOMETER DEV NAME(LOC) 5N.1C; GLUCOSE,POINT OF CARE 135 MG/DL (70-110)
[2022-02-14 20:16] LABS: GLUCOMETER DEV NAME(LOC) 5N.1C; GLUCOSE,POINT OF CARE 129 MG/DL (70-110)
[2022-02-14 21:06] LABS: GLUCOMETER DEV NAME(LOC) 5N.3; GLUCOSE,POINT OF CARE 138 MG/DL (70-110)
[2022-02-14] MEDS: ATORVASTATIN CALCIUM 20 MG TABLET PO SCH (21:26)
[2022-02-14] MEDS: INSULIN GLARGINE,HUM.REC.ANLOG 100 UNITS/ML SQ SCH (21:27)
[2022-02-14 23:44] VITALS: BP 148/82
[2022-02-14] MEDS: MELATONIN 5 MG TABLET PO PRN (23:58)
[2022-02-15 05:36] VITALS: BP 152/70
[2022-02-15] MEDS: NYSTATIN 500,000 UNITS/5 ML SUSPENSION UDCUP PO SCH ×3 (06:36→18:41)
[2022-02-15] MEDS: LEVOTHYROXINE SODIUM 25 MCG TABLET PO SCH (06:36)
[2022-02-15 06:46] LABS: GLUCOMETER DEV NAME(LOC) 5N.1C; GLUCOSE,POINT OF CARE 118 MG/DL (70-110)
[2022-02-15 07:20] LABS: BASOPHILS % (AUTO) 0.6 % (0.0-2.0); EOSINOPHILS % (AUTO) 1.7 % (1.0-6.0); HEMATOCRIT 24.6 % (41-53); HEMOGLOBIN 8.2 g/dL (13.5-17.5); LYMPHOCYTES # (AUTO) 0.9 K/uL (1.0-4.8); LYMPHOCYTES % (AUTO) 4.9 % (22.0-44.0); MEAN CORPUSCULAR HEMOGLOBIN 30.9 pg (26.0-34.0); MEAN CORPUSCULAR HGB CONC 33.6 G/dL (31.0-37.0); MEAN CORPUSCULAR VOLUME 92 fL (80-100); MONOCYTES % (AUTO) 5.7 % (2.0-9.0); NEUTROPHILS # (AUTO) 15.3 K/uL (1.8-7.7); PLATELET COUNT (AUTO) 336 K/uL (150-450); RED BLOOD CELL COUNT(AUTO) 2.67 MIL/uL (4.50-5.90); RED CELL DISTRIBUTION WIDTH 17.9 % (11.5-14.5)
[2022-02-15 07:26] LABS: NEUTROPHILS % (AUTO) 87.1 % (40.0-70.0)
[2022-02-15 07:37] LABS: ALBUMIN 1.5 g/dL (3.4-5.0); BILIRUBIN,TOTAL 0.4 mg/dL (0.1-1.0); CALCIUM, TOTAL 8.1 mg/dL (8.8-10.5); CREATININE 6.52 mg/dL (0.60-1.30); MAGNESIUM 2.1 mg/dL (1.80-2.40); POTASSIUM 3.7 mmol/L (3.5-5.1); TOTAL PROTEIN, SERUM 6.7 g/dL (6.4-8.2)
[2022-02-15] MEDS: ETHYL ALCOHOL 62% ANTISEPTIC NASAL SANITIZER 0.6 ML AMPUL NASAL SCH ×2 (08:29→20:02)
[2022-02-15] MEDS: ASPIRIN 81 MG CHEWABLE TABLET PO SCH (08:29)
[2022-02-15] MEDS: TICAGRELOR 90 MG TABLET PO SCH ×2 (08:29→20:02)
[2022-02-15] MEDS: CARVEDILOL 3.125 MG TABLET PO SCH ×2 (08:29→20:02)
[2022-02-15] MEDS: LOSARTAN POTASSIUM 25 MG TABLET PO SCH (08:29)
[2022-02-15 08:30] VITALS: BP 135/69
[2022-02-15] MEDS: DOXYCYCLINE HYCLATE 100 MG TABLET PO SCH ×2 (08:30→20:02)
[2022-02-15] MEDS: SEVELAMER CARBONATE 800 MG TABLET PO SCH ×3 (08:30→18:41)
[2022-02-15] MEDS: PANTOPRAZOLE SODIUM 40 MG DR TABLET PO SCH (08:30)
[2022-02-15] MEDS: VITAMIN B COMP/VIT C/FOLIC ACID CAPSULE PO SCH (08:30)
[2022-02-15] MEDS: GABAPENTIN 100 MG CAPSULE PO SCH ×2 (08:30→20:02)
[2022-02-15] MEDS: EPOETIN ALFA 10,000 UNITS/ML 2 ML VIAL SQ SCH (08:31)
[2022-02-15] MEDS: PIPERACILLIN SODIUM/TAZOBACTAM 2.25 GM in DEXTROSE 5%-WATER 50 ML IV SCH ×2 (08:32→20:02)
[2022-02-15] MEDS: INSULIN LISPRO 100 UNITS/ML SQ PRN (12:40)
[2022-02-15] MEDS: NITROGLYCERIN 0.4 MG SUBLINGUAL TABLET #25 SL PRN ×2 (12:43→16:14)
[2022-02-15 12:45] VITALS: BP 145/68
[2022-02-15] MEDS: DEXTROSE 50%-WATER 25 GM/50 ML SYRINGE IVP PRN (18:19)
[2022-02-15 18:46] LABS: GLUCOMETER DEV NAME(LOC) 5N.3; GLUCOSE,POINT OF CARE 116 MG/DL (70-110)
[2022-02-15 18:46] LABS: GLUCOMETER DEV NAME(LOC) 5N.3; GLUCOSE,POINT OF CARE 37 MG/DL (70-110)
[2022-02-15 18:46] LABS: GLUCOMETER DEV NAME(LOC) 5N.3; GLUCOSE,POINT OF CARE 157 MG/DL (70-110)
[2022-02-15 19:28] VITALS: BP 165/84
[2022-02-15 19:48] VITALS: BP 162/83
[2022-02-15] MEDS: ATORVASTATIN CALCIUM 20 MG TABLET PO SCH (20:02)
[2022-02-15] MEDS: INSULIN GLARGINE,HUM.REC.ANLOG 100 UNITS/ML SQ SCH (20:03)
[2022-02-15 20:06] LABS: GLUCOMETER DEV NAME(LOC) 5N.1C; GLUCOSE,POINT OF CARE 124 MG/DL (70-110)
[2022-02-15 23:38] VITALS: BP 163/85
[2022-02-16] VITALS (7 sets, daily range): BP systolic 137–157; BP diastolic 64–78
[2022-02-16] MEDS ORDERED: HydrALAZINE HCL 20 MG/ML VIAL IVP PRN
[2022-02-16] MEDS: NYSTATIN 500,000 UNITS/5 ML SUSPENSION UDCUP PO SCH ×4 (00:07→17:59)
[2022-02-16] MEDS: LEVOTHYROXINE SODIUM 25 MCG TABLET PO SCH (06:21)
[2022-02-16] MEDS: INSULIN LISPRO 100 UNITS/ML SQ PRN (06:22)
[2022-02-16 06:31] LABS: GLUCOMETER DEV NAME(LOC) 5N.1C; GLUCOSE,POINT OF CARE 156 MG/DL (70-110)
[2022-02-16 06:44] LABS: BASOPHILS % (AUTO) 0.3 % (0.0-2.0); EOSINOPHILS % (AUTO) 0.7 % (1.0-6.0); HEMATOCRIT 25.9 % (41-53); HEMOGLOBIN 8.6 g/dL (13.5-17.5); LYMPHOCYTES # (AUTO) 0.7 K/uL (1.0-4.8); LYMPHOCYTES % (AUTO) 3.4 % (22.0-44.0); MEAN CORPUSCULAR HEMOGLOBIN 30.6 pg (26.0-34.0); MEAN CORPUSCULAR HGB CONC 33.1 G/dL (31.0-37.0); MEAN CORPUSCULAR VOLUME 92 fL (80-100); MONOCYTES # (AUTO) 1.3 K/uL (0.1-1.0); MONOCYTES % (AUTO) 6.3 % (2.0-9.0); NEUTROPHILS # (AUTO) 18.8 K/uL (1.8-7.7); PLATELET COUNT (AUTO) 349 K/uL (150-450); RED BLOOD CELL COUNT(AUTO) 2.81 MIL/uL (4.50-5.90); RED CELL DISTRIBUTION WIDTH 17.9 % (11.5-14.5)
[2022-02-16 06:45] LABS: NEUTROPHILS % (AUTO) 89.3 % (40.0-70.0)
[2022-02-16] MEDS: SEVELAMER CARBONATE 800 MG TABLET PO SCH ×3 (08:00→17:59)
[2022-02-16] MEDS: DOXYCYCLINE HYCLATE 100 MG TABLET PO SCH ×2 (09:00→20:41)
[2022-02-16] MEDS: TICAGRELOR 90 MG TABLET PO SCH ×2 (09:00→21:25)
[2022-02-16] MEDS: ASPIRIN 81 MG CHEWABLE TABLET PO SCH (09:00)
[2022-02-16] MEDS: GABAPENTIN 100 MG CAPSULE PO SCH ×2 (09:00→20:43)
[2022-02-16] MEDS: CARVEDILOL 3.125 MG TABLET PO SCH ×2 (09:00→20:42)
[2022-02-16] MEDS: PANTOPRAZOLE SODIUM 40 MG DR TABLET PO SCH (09:00)
[2022-02-16] MEDS: LOSARTAN POTASSIUM 25 MG TABLET PO SCH (09:00)
[2022-02-16] MEDS: VITAMIN B COMP/VIT C/FOLIC ACID CAPSULE PO SCH (09:00)
[2022-02-16] MEDS: ETHYL ALCOHOL 62% ANTISEPTIC NASAL SANITIZER 0.6 ML AMPUL NASAL SCH ×2 (09:34→20:59)
[2022-02-16] MEDS: PIPERACILLIN SODIUM/TAZOBACTAM 2.25 GM in DEXTROSE 5%-WATER 50 ML IV SCH ×2 (09:34→20:59)
[2022-02-16] MEDS ORDERED: SODIUM CHLORIDE 0.9% 500 ML IV ONE (09:41)
[2022-02-16] MEDS ORDERED: IOHEXOL 350 MG/ML 100 ML VIAL ONE (12:38)
[2022-02-16] MEDS ORDERED: SODIUM CHLORIDE 0.9% 100 ML ONE (12:38)
[2022-02-16] MEDS ORDERED: IOHEXOL 350 MG/ML 150 ML VIAL ONE (12:39)
[2022-02-16 13:06] LABS: GLUCOMETER DEV NAME(LOC) 5N.3; GLUCOSE,POINT OF CARE 88 MG/DL (70-110)
[2022-02-16] MEDS: ISOSORBIDE MONONITRATE 30 MG ER TABLET PO SCH (17:59)
[2022-02-16 18:20] LABS: GLUCOMETER DEV NAME(LOC) 5N.3; GLUCOSE,POINT OF CARE 76 MG/DL (70-110)
[2022-02-16] MEDS: HYDROCODONE/ACETAMINOPHEN 10-325 MG TABLET PO PRN (18:40)
[2022-02-16] MEDS: ATORVASTATIN CALCIUM 20 MG TABLET PO SCH (20:43)
[2022-02-16] MEDS: INSULIN GLARGINE,HUM.REC.ANLOG 100 UNITS/ML SQ SCH (21:29)
[2022-02-17] VITALS (7 sets, daily range): BP systolic 119–158; BP diastolic 62–82
[2022-02-17] MEDS: NYSTATIN 500,000 UNITS/5 ML SUSPENSION UDCUP PO SCH ×5 (00:28→23:18)
[2022-02-17] MEDS: LEVOTHYROXINE SODIUM 25 MCG TABLET PO SCH (05:10)
[2022-02-17] MEDS: INSULIN LISPRO 100 UNITS/ML SQ PRN ×3 (05:13→20:03)
[2022-02-17 05:50] LABS: BASOPHILS % (AUTO) 0.5 % (0.0-2.0); EOSINOPHILS % (AUTO) 1.3 % (1.0-6.0); HEMOGLOBIN 8.2 g/dL (13.5-17.5); LYMPHOCYTES # (AUTO) 0.8 K/uL (1.0-4.8); LYMPHOCYTES % (AUTO) 4.7 % (22.0-44.0); MEAN CORPUSCULAR HEMOGLOBIN 30.4 pg (26.0-34.0); MEAN CORPUSCULAR HGB CONC 32.8 G/dL (31.0-37.0); MEAN CORPUSCULAR VOLUME 93 fL (80-100); MONOCYTES # (AUTO) 1.8 K/uL (0.1-1.0); MONOCYTES % (AUTO) 10.3 % (2.0-9.0); NEUTROPHILS # (AUTO) 14.1 K/uL (1.8-7.7); NEUTROPHILS % (AUTO) 83.2 % (40.0-70.0); PLATELET COUNT (AUTO) 329 K/uL (150-450); RED BLOOD CELL COUNT(AUTO) 2.69 MIL/uL (4.50-5.90); RED CELL DISTRIBUTION WIDTH 18.5 % (11.5-14.5)
[2022-02-17 05:51] LABS: GLUCOMETER DEV NAME(LOC) 5N.3; GLUCOSE,POINT OF CARE 109 MG/DL (70-110)
[2022-02-17 05:51] LABS: GLUCOMETER DEV NAME(LOC) 5N.3; GLUCOSE,POINT OF CARE 157 MG/DL (70-110)
[2022-02-17 06:03] LABS: INR 1.2 (0.9-1.1); PROTHROMBIN TIME 12.2 SEC (9.4-11.6)
[2022-02-17 06:19] LABS: ALBUMIN 1.4 g/dL (3.4-5.0); BILIRUBIN,TOTAL 0.4 mg/dL (0.1-1.0); CALCIUM, TOTAL 8.2 mg/dL (8.8-10.5); CREATININE 6.33 mg/dL (0.60-1.30); POTASSIUM 3.5 mmol/L (3.5-5.1); TOTAL PROTEIN, SERUM 6.6 g/dL (6.4-8.2)
[2022-02-17] MEDS: TICAGRELOR 90 MG TABLET PO SCH ×2 (09:04→20:01)
[2022-02-17] MEDS: LOSARTAN POTASSIUM 25 MG TABLET PO SCH ×2 (09:04→20:01)
[2022-02-17] MEDS: DOXYCYCLINE HYCLATE 100 MG TABLET PO SCH ×2 (09:05→20:01)
[2022-02-17] MEDS: VITAMIN B COMP/VIT C/FOLIC ACID CAPSULE PO SCH (09:05)
[2022-02-17] MEDS: GABAPENTIN 100 MG CAPSULE PO SCH ×2 (09:05→20:01)
[2022-02-17] MEDS: PANTOPRAZOLE SODIUM 40 MG DR TABLET PO SCH (09:05)
[2022-02-17] MEDS: SEVELAMER CARBONATE 800 MG TABLET PO SCH ×3 (09:05→17:34)
[2022-02-17] MEDS: ASPIRIN 81 MG CHEWABLE TABLET PO SCH (09:05)
[2022-02-17] MEDS: EPOETIN ALFA 10,000 UNITS/ML 2 ML VIAL SQ SCH (09:05)
[2022-02-17] MEDS: ETHYL ALCOHOL 62% ANTISEPTIC NASAL SANITIZER 0.6 ML AMPUL NASAL SCH ×2 (09:06→20:01)
[2022-02-17] MEDS: PIPERACILLIN SODIUM/TAZOBACTAM 2.25 GM in DEXTROSE 5%-WATER 50 ML IV SCH ×2 (09:06→20:01)
[2022-02-17] MEDS: ISOSORBIDE MONONITRATE 30 MG ER TABLET PO SCH (09:06)
[2022-02-17] MEDS: CARVEDILOL 3.125 MG TABLET PO SCH (09:12)
[2022-02-17 09:15] LABS: SPECIMENTYPE,BODY FLUID THORACENTESIS
[2022-02-17 10:31] LABS: APPEARANCE,SPUN,BODY FLUID CLEAR (CLEAR); APPEARANCE,UNSPUN,BODY FLUID HAZY (CLEAR); BASOPHILS,BODY FLUID 0 %; COLOR,BODY FLUID YELLOW (LT YELLOW); EOSINOPHILS,BF (ANAL) 0 %; LYMPHOCYTES,BODY FLUID 57 %; MONOCYTES,BODY FLUID 8 %; NEUTROPHILS,BODY FLUID 35 %; TOTAL VOLUME,BODY FLUID 1300 mL; WBC, BODY FLUID 48 /cu. mm.
[2022-02-17 12:36] LABS: GLUCOMETER DEV NAME(LOC) 5N.3; GLUCOSE,POINT OF CARE 121 MG/DL (70-110)
[2022-02-17] MEDS: HYDROCODONE/ACETAMINOPHEN 10-325 MG TABLET PO PRN ×2 (14:09→20:00)
[2022-02-17 18:27] LABS: GLUCOMETER DEV NAME(LOC) 5N.3; GLUCOSE,POINT OF CARE 190 MG/DL (70-110)
[2022-02-17] MEDS: ATORVASTATIN CALCIUM 20 MG TABLET PO SCH (20:01)
[2022-02-17] MEDS: CARVEDILOL 6.25 MG TABLET PO SCH (20:01)
[2022-02-17] MEDS: INSULIN GLARGINE,HUM.REC.ANLOG 100 UNITS/ML SQ SCH (20:03)
[2022-02-18 04:13] VITALS: BP 121/60
[2022-02-18] MEDS: LEVOTHYROXINE SODIUM 25 MCG TABLET PO SCH (05:57)
[2022-02-18] MEDS: NYSTATIN 500,000 UNITS/5 ML SUSPENSION UDCUP PO SCH ×3 (05:57→18:00)
[2022-02-18] MEDS: DEXTROSE 50%-WATER 25 GM/50 ML SYRINGE IVP PRN (05:58)
[2022-02-18 07:26] VITALS: BP 111/57
[2022-02-18] MEDS: ISOSORBIDE MONONITRATE 30 MG ER TABLET PO SCH (08:11)
[2022-02-18] MEDS: DOXYCYCLINE HYCLATE 100 MG TABLET PO SCH (08:11)
[2022-02-18] MEDS: TICAGRELOR 90 MG TABLET PO SCH (08:11)
[2022-02-18] MEDS: ETHYL ALCOHOL 62% ANTISEPTIC NASAL SANITIZER 0.6 ML AMPUL NASAL SCH (08:11)
[2022-02-18] MEDS: CARVEDILOL 6.25 MG TABLET PO SCH (08:11)
[2022-02-18] MEDS: SEVELAMER CARBONATE 800 MG TABLET PO SCH ×3 (08:11→18:12)
[2022-02-18] MEDS: ASPIRIN 81 MG CHEWABLE TABLET PO SCH (08:12)
[2022-02-18] MEDS: GABAPENTIN 100 MG CAPSULE PO SCH (08:12)
[2022-02-18] MEDS: PANTOPRAZOLE SODIUM 40 MG DR TABLET PO SCH (08:12)
[2022-02-18] MEDS: LOSARTAN POTASSIUM 25 MG TABLET PO SCH (08:12)
[2022-02-18] MEDS: PIPERACILLIN SODIUM/TAZOBACTAM 2.25 GM in DEXTROSE 5%-WATER 50 ML IV SCH (08:12)
[2022-02-18] MEDS: VITAMIN B COMP/VIT C/FOLIC ACID CAPSULE PO SCH (08:12)
[2022-02-18] MEDS: HYDROCODONE/ACETAMINOPHEN 10-325 MG TABLET PO PRN ×2 (08:26→18:22)
[2022-02-18 11:23] VITALS: BP 112/66
[2022-02-18] MEDS ORDERED: CARV6 PO (14:37)
[2022-02-18] MEDS ORDERED: DOXY-354 PO (14:38)
[2022-02-18] MEDS ORDERED: EPOE10IM SQ (14:40)
[2022-02-18] MEDS ORDERED: ISOS30TA92 PO (14:43)
[2022-02-18] MEDS ORDERED: LOSA-381 PO (14:44)
[2022-02-18] MEDS ORDERED: NYST100033 PO (14:45)
[2022-02-18] MEDS ORDERED: PANT-31 PO (14:45)
[2022-02-18] MEDS ORDERED: SEVE800T17 PO (14:46)
[2022-02-18] MEDS ORDERED: TICA90TA PO (14:47)
[2022-02-18] MEDS ORDERED: B CO1CAP6 PO (14:48)
[2022-02-18] MEDS ORDERED: HYDR-4069 PO (14:52)
[2022-02-18] MEDS ORDERED: HYDR20I IVP (14:54)
[2022-02-18] MEDS ORDERED: MELA5TAB40 PO (14:55)
[2022-02-18] MEDS ORDERED: NITR0.4T50 SL (14:55)
[2022-02-18] MEDS ORDERED: ONDA-104 PO (14:56)
[2022-02-18] MEDS ORDERED: PHEN20SP PO (14:57)
[2022-02-18] MEDS ORDERED: INSLAN SQ (15:00)
[2022-02-18 15:32] VITALS: BP 125/59
[2022-02-18 16:56] LABS: GLUCOMETER DEV NAME(LOC) 5N.3; GLUCOSE,POINT OF CARE 149 MG/DL (70-110)
[2022-02-18 16:56] LABS: GLUCOMETER DEV NAME(LOC) 5N.3; GLUCOSE,POINT OF CARE 61 MG/DL (70-110)
[2022-02-18 16:56] LABS: GLUCOMETER DEV NAME(LOC) 5N.3; GLUCOSE,POINT OF CARE 78 MG/DL (70-110)
[2022-02-18 16:56] LABS: GLUCOMETER DEV NAME(LOC) 5N.3; GLUCOSE,POINT OF CARE 97 MG/DL (70-110)
[2022-02-18 17:51] VITALS: BP 125/59
[2022-02-18 18:42] LABS: GLUCOMETER DEV NAME(LOC) 5N.3; GLUCOSE,POINT OF CARE 181 MG/DL (70-110)
== END 2022-02-18 19:13 | DRG 853 ==
LOC: EMS 14:52 → 5N 18:28 → ICU 01-29 19:10 → 5N 02-09 23:30 → 5S 02-11 09:51 → 5N 02-11 13:30
PROVIDERS: ADMIT Internal Medicine; ATTEND Internal Medicine
PROC: 0W9B30Z Drainage of Left Pleural Cavity with Drainage Device, Percutaneous Approach (ICD-10-PCS; 2022-01-25)
PROC: 0BNL4ZZ Release Left Lung, Percutaneous Endoscopic Approach (ICD-10-PCS; 2022-01-29)
PROC: 0BH17EZ Insertion of Endotracheal Airway into Trachea, Via Natural or Artificial Opening (ICD-10-PCS; 2022-01-29)
PROC: 3E0L4GC Introduction of Other Therapeutic Substance into Pleural Cavity, Percutaneous Endoscopic Approach (ICD-10-PCS; 2022-01-29)
PROC: 0W9B40Z Drainage of Left Pleural Cavity with Drainage Device, Percutaneous Endoscopic Approach (ICD-10-PCS; 2022-01-29)
PROC: 5A1945Z Respiratory Ventilation, 24-96 Consecutive Hours (ICD-10-PCS; principal; 2022-01-29 15:00)
PROC: 5A12012 Performance of Cardiac Output, Single, Manual (ICD-10-PCS; 2022-01-30)
PROC: B2111ZZ Fluoroscopy of Multiple Coronary Arteries using Low Osmolar Contrast (ICD-10-PCS; 2022-02-03)
PROC: 0W993ZZ Drainage of Right Pleural Cavity, Percutaneous Approach (ICD-10-PCS; 2022-02-17)
DX: A41.9 Sepsis, unspecified organism (principal); I50.23 Acute on chronic systolic (congestive) heart failure; N18.6 End stage renal disease; I46.9 Cardiac arrest, cause unspecified; J18.9 Pneumonia, unspecified organism; I49.01 Ventricular fibrillation; E43 Unspecified severe protein-calorie malnutrition; J96.01 Acute respiratory failure with hypoxia; I13.2 Hypertensive heart and chronic kidney disease with heart failure and with stage 5 chronic kidney disease, or end stage renal disease; L03.115 Cellulitis of right lower limb; E87.1 Hypo-osmolality and hyponatremia; J91.8 Pleural effusion in other conditions classified elsewhere; E87.4 Mixed disorder of acid-base balance; N25.81 Secondary hyperparathyroidism of renal origin; S22.41XA Multiple fractures of ribs, right side, initial encounter for closed fracture; Z20.822 Contact with and (suspected) exposure to COVID-19; E11.22 Type 2 diabetes mellitus with diabetic chronic kidney disease; E03.9 Hypothyroidism, unspecified; D63.1 Anemia in chronic kidney disease; E78.5 Hyperlipidemia, unspecified; E83.39 Other disorders of phosphorus metabolism; G25.3 Myoclonus; E87.6 Hypokalemia; E11.621 Type 2 diabetes mellitus with foot ulcer; W18.39XA Other fall on same level, initial encounter; I25.10 Atherosclerotic heart disease of native coronary artery without angina pectoris; I70.298 Other atherosclerosis of native arteries of extremities, other extremity; L97.519 Non-pressure chronic ulcer of other part of right foot with unspecified severity; Z83.3 Family history of diabetes mellitus; Z99.2 Dependence on renal dialysis; Z90.49 Acquired absence of other specified parts of digestive tract; Z89.512 Acquired absence of left leg below knee; Z78.9 Other specified health status; Z98.61 Coronary angioplasty status; Y93.89 Activity, other specified; Y92.89 Other specified places as the place of occurrence of the external cause; Y99.8 Other external cause status
CPT/HCPCS: 32550; 32555; 36245; 36569; 36600; 37236; 70450; 71045; 71250; 71260; 72193; 73718; 74160; 76937; 76942; 80048; 80053; 80202; 81001; 81002; 82140; 82465; 82805; 82945; 82962; 83036; 83605; 83615; 83690; 83735; 83880; 83986; 84100; 84145; 84157; 84311; 84439; 84443; 84484; 85007; 85014; 85018; 85025; 85027; 85610; 85730; 86480; 87015; 87040; 87070; 87075; 87081; 87086; 87101; 87149; 87205; 87206; 87252; 87389; 87556; 88112; 88305; 89051; 90945; 92610; 92920; 92921; 92928; 92950; 93005; 93306; 93308; 93926; 93971; 94002; 94003; 94640; 97110; 97162; 97163; 97164; 97165; 97168; 97530; 97535; 99291; G0378; J0171; J0360; J0461; J0692; J0885; J1170; J1644; J1815; J2250; J2405; J2543; J2704; J3010; J3370; J3490; J7030; J7040; J7050; J7060; P9046; Q9967; 36415-L1; 36415-TC; Z7610